=== PATIENT | female | born 1940 | race Caucasian/White ===

== ENCOUNTER → 2017-01-14 | Day surgery (SDC) | payer OTHER, BC ==
[2016-11-18 15:40] VITALS: Ht 165.1 cm; Wt 72.7 kg
[~2017-01-14] VITALS: Ht 165.1 cm; Wt 72.7 kg
[~2017-01-14] MED LIST: 500ML BSS 0.3ML EPI 1:1000PF IRRIG ONE; ACETAMINOPHEN 325 MG TAB PO PRN; AMLO-110 PO; AMVISC PLUS 0.8ML SYRINGE INT OCU ONE; ASPI81TA28 PO; ATROPINE SULFATE 0.1 MG/ML 5ML SYR IV PRN; AcetaZOLAMIDE 250 MG TAB PO SCH; BETAXOLOL HCL 0.25% OP SUSP PER DROP CHARGE OPL SCH; BRIMONIDINE TART 0.2% OP SOLN PER DROP CHARGE ONE; BSS FLUSH ONE; DICL50TA3 PO; ENDOCOAT 0.85ML SYRINGE INT OCU ONE; EpHEDrine SULFATE INJ 50 MG/ML AMP IV PRN; EpINEphrine INJ 1MG/ML AMP 1 MG/ML AMP ONE; LACTATED RINGER'S 1000ML 500 ML IV SCH; LIDOCAINE 4% OP SOLN DROP CHARGE ONE; LIDOCAINE 4% OP SOLN DROP CHARGE OPL SCH; LIDOCAINE HCL 1% MPF 2 ML VIAL ONE; MIDAZOLAM HCL 1 MG/ML 2ML VIAL ONE; MIX: 4ML BSS 1ML EPI 1:1000 PF INSTIL ONE; MOXIFLOXACIN OPH SOLN PER DROP CHARGE ONE; OCUCOAT 1 ML SOLN IO ONE; ONDANSETRON INJ 2 MG/ML 2 ML VIAL IV PRN; POTA99TA PO; POVIDONE-IODINE OP SOLN 30 ML BTL ONE; PRLSR20 PO; PROPARACAINE 0.5% OP SOLN PER DROP CHARGE OPL SCH; TOBRAMYCIN/DEXAMETHASONE OPH OINT PER APPLN CHARGE ONE; VALS160T58 PO
--- NOTE | 2017-01-14 07:47 | History & Physical Bridge - [place] ---
H&P Re-Evaluation Bridge Note: I have examined the patient, reviewed the History & Physical and in the interval since the performance of the History & Physical I have noted the following changes of clinical significance: No changes noted
[2017-01-14] MEDS: PHENYLEPHRINE HCL 2.5% OP SOLN PER DROP CHARGE OPL SCH ×2 (10:30→10:40)
[2017-01-14] MEDS: TROPICAMIDE 1% OP SOLN PER DROP CHARGE OPL SCH ×2 (10:31→10:41)
[2017-01-14] MEDS: CYCLOPENTOLATE HCL 1% OP SOLN PER DROP CHARGE OPL SCH ×2 (10:32→10:42)
[2017-01-14] MEDS: MOXIFLOXACIN OPH SOLN PER DROP CHARGE OPL SCH ×2 (10:33→10:43)
--- NOTE | 2017-01-14 11:27 | Discharge Instructions-SurgCtr ---
Discharge Instructions Date of Service Jan 14, 2017. Visit Reason for Visit: Cataract Left Eye Discharge Discharge Diagnosis / Problem: lens implant left eye Discharge Goals Goal(s): Improve function Activity Recommendations Activity Limitations: resume your previous activity Lifting Limitations: no more than 10 pounds Exercise/Sports Limitations: gradually increase as tolerated May Resume Sexual Activity: when tolerated Shower/Bathe: tomorrow Driving or Machine Use: resume 1 day after discharge Anesthesia . Post Anesthesia Instructions: If you have had General Anesthesia or IV Sedation: * Do not drive today. * Resume driving when surgeon permits. * Do not make important decisions or sign legal documents today. * Call surgeon for: 1. Temperature elevations greater than 101 degrees F. 2. Uncontrollable pain. 3. Excessive bleeding. 4. Persistent nausea and vomiting. 5. Medication intolerance (nausea, vomiting or rash). * For nausea and vomiting use only clear liquids such as: tea, soda, bouillon until nausea subsides, then gradually increase diet as tolerated. * If you have any concerns or questions, call your surgeon's office. If physician is unavailable and it is an emergency, call 911 or go to the nearest emergency room. . Instructions / Follow-Up Instructions / Follow-Up ACTIVITY RECOMMENDATIONS: * Light activities. * Mild irritation and blurred vision are common for the first few days. * You may walk outside, read, watch television. * Redness around the white part of the eye is common. MEDICATIONS: Resume previous medications unless instructed otherwise by your surgeon. * Take white Diamox (Acetazolamide) tablet at 2 pm today. Start all eye drops at 2 pm today: * Eye drops (today and tomorrow): Prednisone - one drop in operative eye every 3 hours while awake Ofloxacin - one drop in operative eye every 3 hours while awake SPECIAL CARE INSTRUCTIONS: * Tape plastic shield over eye to sleep at night. Call your doctor at with any concerns or problems. FOLLOW UP VISIT: Follow-up with Dr Bhakta at [place] office as scheduled. Diet Recommendations Home Diet: no limitations Procedures Procedures Performed: cataract extraction with lens implant Pending Studies Studies pending at discharge: no Medical Emergencies . Who to Call and When: Medical Emergencies: If at any time you feel your situation is an emergency, please call 911 immediately. . Non-Emergent Contact Non-Emergency issues call your: Hookman Call Non-Emergent contact if: your pain is not controlled [phone] . . "Provider Documentation" section prepared by Trever Bhakta. .
--- NOTE | 2017-01-14 11:29 | [facility] Operative Report ---
Operative Report Date of Service Jan 14, 2017. Operative Report 1. PREOPERATIVE DIAGNOSIS: Senile nuclear cataract, left eye. 2. POSTOPERATIVE DIAGNOSIS: Senile nuclear cataract, left eye. 3. PROCEDURE: Phacoemulsification of left cataract with posterior chamber lens implant, type [employer]ch [employer] Lomb, model MX60, power +21.0 diopters. ANESTHESIA: Local standby. SURGEON: Dr. Bhakta. COMPLICATIONS: None. OPERATING TIME: 10 minutes. 4. OPERATION AND FINDINGS: DESCRIPTION OF PROCEDURE: The left pupil was dilated. The anesthetic was administered using a topical technique. The left eye was prepped and draped. A speculum was placed. A clear corneal incision was formed. The chamber was filled with Amvisc Plus and Endocoat. Epinephrine solution was used. A paracentesis was placed. A capsulorrhexis was performed. The nucleus was hydrodissected. The lens was removed with phacoemulsification. Time was 3.14 seconds. The aspiration unit was used to remove the cortex. The capsule was filled with Amvisc Plus. The lens implant was folded and placed into the capsule. The incision was hydrated. The Amvisc was aspirated. The wound was secure. The chamber was deep. The pupil was round. Brimonidine, TobraDex ointment and Vigamox solution were placed. The speculum was removed. The patient was returned to the Recovery Room in stable condition. I attest to the content of the Intraoperative Record and any orders documented therein. Any exceptions are noted below. The scribe's documentation has been prepared in my presence, under my direction and personally reviewed by me in its entirety. I confirm that the note above accurately reflects all work, treatment, procedures, and medical decision making performed by me. I personally scribed for Trever Bhakta M.D. ([email or web address]) on 01/14/17 at 11:29. Electronically submitted by Tiara Aguayo ([email or web address]).
[2017-01-14 11:32] VITALS: TEMP 36.4
--- NOTE | 2017-01-14 11:33 | Anesthesiology Progress Note ---
Anesthesia Post Op Note Date & Time Jan 14, 2017 at 11:33 Vital Signs Pain Intensity: 0 Vital Signs Past 12 Hours Date Time Temp Pulse Resp B/P (MAP) Pulse Ox O2 Delivery O2 Flow Rate FiO2 01/14/17 10:20 36.5 62 16 135/81 (99) 97 Room Air Notes Mental Status: alert / awake / arousable, participated in evaluation Nausea / Vomiting: adequately controlled Pain: adequately controlled Airway Patency, RR, SpO2: stable & adequate BP & HR: stable & adequate Hydration State: stable & adequate Anesthetic Complications: no major complications apparent
[2017-01-14 11:50] VITALS: BP 124/78; PULSE 60; O2SAT 96
== END | disposition home or self-care (01) ==
LOC: X.SURG 09:51
PROVIDERS: ATTEND Specialist
DX: H25.12 Age-related nuclear cataract, left eye (principal); I10 Essential (primary) hypertension; Z79.82 Long term (current) use of aspirin; Z79.899 Other long term (current) drug therapy

== ENCOUNTER → 2017-01-28 | Day surgery (SDC) | payer OTHER, BC ==
[2017-01-26 08:37] VITALS: Ht 165.1 cm; Wt 72.7 kg
[~2017-01-28] VITALS: Ht 165.1 cm; Wt 72.7 kg
[~2017-01-28] MED LIST changes: -BETAXOLOL HCL 0.25% OP SUSP PER DROP CHARGE OPL SCH; +BETAXOLOL HCL 0.25% OP SUSP PER DROP CHARGE OPR SCH; -LIDOCAINE 4% OP SOLN DROP CHARGE OPL SCH; +LIDOCAINE 4% OP SOLN DROP CHARGE OPR SCH; -ONDANSETRON INJ 2 MG/ML 2 ML VIAL IV PRN; -PROPARACAINE 0.5% OP SOLN PER DROP CHARGE OPL SCH; +PROPARACAINE 0.5% OP SOLN PER DROP CHARGE OPR SCH
[2017-01-28] MEDS: PHENYLEPHRINE HCL 2.5% OP SOLN PER DROP CHARGE OPR SCH ×2 (10:08→10:16)
[2017-01-28] MEDS: TROPICAMIDE 1% OP SOLN PER DROP CHARGE OPR SCH ×2 (10:09→10:17)
[2017-01-28] MEDS: CYCLOPENTOLATE HCL 1% OP SOLN PER DROP CHARGE OPR SCH ×2 (10:10→10:18)
[2017-01-28] MEDS: MOXIFLOXACIN OPH SOLN PER DROP CHARGE OPR SCH ×2 (10:11→10:20)
--- NOTE | 2017-01-28 11:03 | Discharge Instructions-SurgCtr ---
Discharge Instructions Date of Service Jan 28, 2017. Visit Reason for Visit: Cataract Right Eye Discharge Discharge Diagnosis / Problem: lens implant right eye Discharge Goals Goal(s): Improve function Activity Recommendations Activity Limitations: resume your previous activity Lifting Limitations: no more than 10 pounds Exercise/Sports Limitations: gradually increase as tolerated May Resume Sexual Activity: when tolerated Shower/Bathe: tomorrow Driving or Machine Use: resume 1 day after discharge Anesthesia . Post Anesthesia Instructions: If you have had General Anesthesia or IV Sedation: * Do not drive today. * Resume driving when surgeon permits. * Do not make important decisions or sign legal documents today. * Call surgeon for: 1. Temperature elevations greater than 101 degrees F. 2. Uncontrollable pain. 3. Excessive bleeding. 4. Persistent nausea and vomiting. 5. Medication intolerance (nausea, vomiting or rash). * For nausea and vomiting use only clear liquids such as: tea, soda, bouillon until nausea subsides, then gradually increase diet as tolerated. * If you have any concerns or questions, call your surgeon's office. If physician is unavailable and it is an emergency, call 911 or go to the nearest emergency room. . Instructions / Follow-Up Instructions / Follow-Up ACTIVITY RECOMMENDATIONS: * Light activities. * Mild irritation and blurred vision are common for the first few days. * You may walk outside, read, watch television. * Redness around the white part of the eye is common. MEDICATIONS: Resume previous medications unless instructed otherwise by your surgeon. * Take white Diamox (Acetazolamide) tablet at 2 pm today. Start all eye drops at 2 pm today: * Eye drops (today and tomorrow): Prednisone - one drop in operative eye every 3 hours while awake Ofloxacin - one drop in operative eye every 3 hours while awake SPECIAL CARE INSTRUCTIONS: * Tape plastic shield over eye to sleep at night. Call your doctor at with any concerns or problems. FOLLOW UP VISIT: Follow-up with Dr Bhakta at [place] office as scheduled. Diet Recommendations Home Diet: no limitations Procedures Procedures Performed: Right Cataract Phacoemulsification With Intraocular Lens Implant Pending Studies Studies pending at discharge: no Medical Emergencies . Who to Call and When: Medical Emergencies: If at any time you feel your situation is an emergency, please call 911 immediately. . Non-Emergent Contact Non-Emergency issues call your: Developer Relations Manager Call Non-Emergent contact if: your pain is not controlled [phone] . . "Provider Documentation" section prepared by Trever Bhakta. .
--- NOTE | 2017-01-28 11:06 | [facility] Operative Report ---
Operative Report Date of Service Jan 28, 2017. Operative Report 1. PREOPERATIVE DIAGNOSIS: Senile nuclear cataract, right eye. 2. POSTOPERATIVE DIAGNOSIS: Senile nuclear cataract, right eye. 3. PROCEDURE: Phacoemulsification of right cataract with posterior chamber lens implant, type B[employer]ch [employer] Lomb, model MX60, power +19.0 diopters. ANESTHESIA: Local standby. SURGEON: Dr. Bhakta. COMPLICATIONS: None. OPERATING TIME: 10 minutes. 4. OPERATION AND FINDINGS: DESCRIPTION OF PROCEDURE: The right pupil was dilated. The anesthetic was administered using a topical technique. The right eye was prepped and draped. A speculum was placed. A clear corneal incision was formed. The chamber was filled with Amvisc Plus and Endocoat. Epinephrine solution was used. A paracentesis was placed. A capsulorrhexis was performed. The nucleus was hydrodissected. The lens was removed with phacoemulsification. Time was 4.19 seconds. The aspiration unit was used to remove the cortex. The capsule was filled with Amvisc Plus. The lens implant was folded and placed into the capsule. The incision was hydrated. The Amvisc was aspirated. The wound was secure. The chamber was deep. The pupil was round. Brimonidine, TobraDex ointment and Vigamox solution were placed. The speculum was removed. The patient was returned to the Recovery Room in stable condition. I attest to the content of the Intraoperative Record and any orders documented therein. Any exceptions are noted below. The scribe's documentation has been prepared in my presence, under my direction and personally reviewed by me in its entirety. I confirm that the note above accurately reflects all work, treatment, procedures, and medical decision making performed by me. I personally scribed for Trever Bhakta M.D. ([email or web address]) on 01/28/17 at 11:06. Electronically submitted by Tiara Aguayo ([email or web address]).
[2017-01-28 11:08] VITALS: TEMP 36.4
--- NOTE | 2017-01-28 11:19 | Anesthesiology Progress Note ---
Anesthesia Post Op Note Date & Time Jan 28, 2017 at 11:19 Vital Signs Pain Intensity: 0 Vital Signs Past 12 Hours Date Time Temp Pulse Resp B/P (MAP) Pulse Ox O2 Delivery O2 Flow Rate FiO2 01/28/17 11:08 36.4 62 16 119/76 (90) 97 Room Air 01/28/17 10:04 36.4 65 16 146/80 (102) 98 Room Air Notes Mental Status: alert / awake / arousable, participated in evaluation Nausea / Vomiting: adequately controlled Pain: adequately controlled Airway Patency, RR, SpO2: stable & adequate BP & HR: stable & adequate Hydration State: stable & adequate Anesthetic Complications: no major complications apparent
[2017-01-28 11:23] VITALS: BP 135/67; PULSE 54; O2SAT 96
== END | disposition home or self-care (01) ==
LOC: X.SURG 08:40
PROVIDERS: ATTEND Specialist
DX: H25.11 Age-related nuclear cataract, right eye (principal); I10 Essential (primary) hypertension; M19.90 Unspecified osteoarthritis, unspecified site; Z79.82 Long term (current) use of aspirin; Z98.42 Cataract extraction status, left eye; Z90.89 Acquired absence of other organs; Z90.49 Acquired absence of other specified parts of digestive tract

== ENCOUNTER → 2017-05-27 | Outpatient (CLI) | payer OTHER, BC ==
[~2017-05-27] MED LIST changes: -500ML BSS 0.3ML EPI 1:1000PF IRRIG ONE; -ACETAMINOPHEN 325 MG TAB PO PRN; -AMVISC PLUS 0.8ML SYRINGE INT OCU ONE; -ATROPINE SULFATE 0.1 MG/ML 5ML SYR IV PRN; -AcetaZOLAMIDE 250 MG TAB PO SCH; -BETAXOLOL HCL 0.25% OP SUSP PER DROP CHARGE OPR SCH; -BRIMONIDINE TART 0.2% OP SOLN PER DROP CHARGE ONE; -BSS FLUSH ONE; -ENDOCOAT 0.85ML SYRINGE INT OCU ONE; -EpHEDrine SULFATE INJ 50 MG/ML AMP IV PRN; -EpINEphrine INJ 1MG/ML AMP 1 MG/ML AMP ONE; -LACTATED RINGER'S 1000ML 500 ML IV SCH; -LIDOCAINE 4% OP SOLN DROP CHARGE ONE; -LIDOCAINE 4% OP SOLN DROP CHARGE OPR SCH; -LIDOCAINE HCL 1% MPF 2 ML VIAL ONE; -MIDAZOLAM HCL 1 MG/ML 2ML VIAL ONE; -MIX: 4ML BSS 1ML EPI 1:1000 PF INSTIL ONE; -MOXIFLOXACIN OPH SOLN PER DROP CHARGE ONE; -OCUCOAT 1 ML SOLN IO ONE; -POVIDONE-IODINE OP SOLN 30 ML BTL ONE; -PROPARACAINE 0.5% OP SOLN PER DROP CHARGE OPR SCH; -TOBRAMYCIN/DEXAMETHASONE OPH OINT PER APPLN CHARGE ONE
[2017-05-27 12:48] LABS: HEMATOCRIT 41.9 % (37-47); HEMOGLOBIN 13.9 g/dL (12.0-16.0); MEAN CELL VOLUME 88.8 fL (80-100); MEAN CORPUSCULAR HEMOGLOBIN 29.4 pg (25-34); MEAN CORPUSCULAR HGB CONC 33.2 g/dl (32-36); MEAN PLATELET VOLUME 9.7 fL (7.4-10.4); PLATELET COUNT 236 K/uL (130-400)
[2017-05-27 13:20] LABS: BLOOD UREA NITROGEN 20 mg/dl (7-18); CALCIUM 8.7 mg/dl (8.5-10.1); CARBON DIOXIDE 28 mmol/L (21-32); CREATININE 0.76 mg/dl (0.60-1.20); GLUCOSE 88 mg/dl (70-99); POTASSIUM 3.9 mmol/L (3.5-5.1); SODIUM 140 mmol/L (136-145)
== END | disposition home or self-care (01) ==
LOC: C.LABPBG 07:44
PROVIDERS: ATTEND Family Medicine
DX: I10 Essential (primary) hypertension (principal); M85.80 Other specified disorders of bone density and structure, unspecified site; L65.9 Nonscarring hair loss, unspecified

== ENCOUNTER 2023-01-16 13:49 | Inpatient (IN) ==
--- NOTE | 2023-01-16 14:05 | Emergency Department Note ---
Impression & Plan Septic shock, Atrial fibrillation with RVR, NSTEMI (non-ST elevated myocardial infarction), Pancolitis ED Provider Note NAME: BRANDEN BRADFORD AGE: 82 SEX: F : 1940 ARRIVES VIA: Ambulance INFORMANT: Patient, ED PROVIDER(S): Trever No DO CHIEF COMPLAINT: Weakness HPI: The patient is an 82-year-old female who presented to the emergency department for generalized weakness. The patient is a history of ulcerative colitis. She was recently admitted to our facility for similar complaints. The patient states that she has been not feeling well and very weak. She has not been able to get out of bed or walk. The patient was found to be in tachycardia which was felt to be rapid atrial fibrillation by the paramedics. She has no history of this in the past. She denies having any chest pain. She does complain of swelling in her legs as well as rectal bleeding. ROS: See above HPI for pertinent positives & negatives. A total of 10 systems reviewed and were otherwise negative. PAST MEDICAL HISTORY: See Below PAST SURGICAL HISTORY: See Below FAMILY HISTORY: See Below SOCIAL HISTORY: See Below HOME MEDICATIONS: See Below ALLERGIES: See Below VITALS: See Below PHYSICAL EXAMINATION: GENERAL: The patient is awake and alert. She is very anxious. EYES: The conjunctivae are clear. The pupils are round and reactive. EARS, NOSE, MOUTH AND THROAT: The nose is without any evidence of any deformity. NECK: The neck is nontender and supple. RESPIRATORY: Normal respiratory effort is noted there is no evidence of wheezing rhonchi or rales CARDIOVASCULAR: Tachycardic and regular heart sounds were noted to auscultation. There is no definite murmur. GASTROINTESTINAL: The abdomen is soft. Abdomen is nontender. MUSCULOSKELETAL/EXTREMITIES: There is no evidence of gross deformity full range of motion is noted in the hips and shoulders. SKIN:Skin was cool and dry. Pedal edema was noted bilaterally. NEUROLOGIC: Patient is awake alert and oriented x3 MEDICAL DECISION MAKING: The patient is an 82-year-old female who presented to the emergency department b y ambulance for an evaluation of generalized weakness. The patient was found to be in rapid atrial fibrillation. This would be a new diagnosis for the patient. She appeared to be very ill. She was hypotensive at times. She was treated with multiple IV fluid boluses. She did have some abdominal tenderness on physical exam. She was recently diagnosed with colitis. She was found to have an acute kidney injury with an elevation in her creatinine. She was treated with IV antibiotics for presumed sepsis. The patient was reevaluated multiple times. I discussed patient's laboratory and radiographic studies with her as well as her family. They are aware that the patient is very sick at this time. I discussed patient's case with the on-call [facility] [place] [facility] group and the patient was also evaluated by the ICU in the emergency department. A central line was placed in the emergency room by the ICU. Triage Nursing notes reviewed. Prior medical records reviewed Vital Signs: reviewed and remarkable for Hypotension and tachycardia. Differential diagnosis: Infection, dehydration, metabolic abnormality, hypo/hyperglycemia, electrolyte disturbance, anemia, hypoxia, cardiac sources, intracerebral event, toxicologic, neurologic, as well as other pathologies. ER treatment provided: See below Diagnostics interpreted by me: ECG: EKG was obtained in the emergency department. My interpretation is atrial fibrillation with RVR at [address] segment depressions were noted. There were no PVCs noted. This was compared to a tracing from December 14, 2022. The atrial fibrillation is new compared to the earlier tracing. Cardiac Monitoring: An order was placed for continuous cardiac monitoring. The monitor shows a rate of 130 bpm with atrial fibrillation and RVR. Laboratory studies: As stated above and show below. Imaging studies: See below. Radiographic imaging was reviewed by myself Consultation(s): I discussed this case with Dr. Meehan as well as Dr. Miller who is on for the [facility] hospice group. I discussed this case with Bertin who is on for the ICU. ED COURSE: Procedures: none Critical Care: I have personally spent greater than 55 minutes of critical care time in the direct management of this patient. This includes bedside care, interpretation of diagnostic studies, and testing, discussion with consultants, patient, and family members, and other required patient management activities. This 55 minutes is in excess of all separately billable procedures. Past Med/Surg History Medical History Afib Arthritis Colitis Diarrhea GERD (gastroesophageal reflux disease) Hypertension Hypokalemia Hyponatremia Osteopenia Surgical History H/O cataract extraction (2016) History of breast lump/mass excision (1987) Fibroid, 1987 S/P appendectomy S/P cholecystectomy (2009) S/P tonsillectomy Family History Mother Cardiac disorder Stroke Hypertension Myocardial infarction 80's Sister Cardiac disorder Stroke Hypertension Grandfather (Maternal) Diabetes Father No known health problems Denies family history of Ovarian cancer Prostate cancer Breast cancer Colorectal cancer Social History Smoking Status: Never smoker Second Hand Exposure: No; Do You Dip or Chew Tobacco: No; Hx Alcohol Use: No Hx Substance Use: No Preferred Language: Hungarian Communication Ability: Effective Visual Impairment: No Limitations Hearing Ability: Normal Train Conductor Required: No Beliefs That Will Affect Care: None marital status: Current Living Situation: Spouse 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 Feels Safe at Home: Yes Diet: regular Diet Comment: regular caffeine: Yes during the past year weight has: remained stable Dental Care, Regularly: Yes Physical Activity Frequency: Daily Physical Activity Frequency Comment: walking/ housework Seatbelt Use: always Sunscreen Use: Yes Assistive Devices: Cane and Wheelchair Allergies Allergies Allergy/AdvReac Type Severity Reaction Status Date / Time Penicillins Allergy Unknown UNKNOWN Verified 12/25/22 13:17 Home Meds Home Medications Medication Instructions Recorded Confirmed vitamins A,C,[id number] 4,296 See Rx Instructions .Route .COMPLEX 10/18/21 12/25/22 mcg-226 mg-90 mg capsule (PreserVision AREDS) calcium carbonate 600 mg calcium See Rx Instructions .Route .COMPLEX 12/09/22 12/25/22 (1,500 mg) tablet (Calcium) cholecalciferol (vitamin D3) 25 See Rx Instructions .Route .COMPLEX 12/09/22 12/25/22 mcg (1,000 unit) tablet (Vitamin D3) prednisone 5 mg tablet 5 mg .Route .COMPLEX 01/01/23 01/16/23 amlodipine 5 mg tablet See Rx Instructions .Route .COMPLEX 01/16/23 losartan 50 mg-hydrochlorothiazide See Rx Instructions .Route .COMPLEX 01/16/23 12.5 mg tablet mesalamine 1.2 gram tablet,delayed 4.8 g PO DAILY 01/16/23 01/16/23 release (Lialda) potassium chloride 10 mEq See Rx Instructions .Route .COMPLEX 01/16/23 capsule,extended release triamcinolone acetonide 0.1 % 1 applic topical BID PRN Other 01/16/23 01/16/23 topical cream Results & Data (ED) Vital Signs Vital Signs - 24 hr 01/16/23 13:56 01/16/23 13:56 01/16/23 13:56 Temperature 36.7 C 36.7 C Temperature Source Oral Oral Pulse Rate 165 H Pulse Rate [Apical] 148 H Pulse Rate from SpO2 Sensor Pulse Rhythm [Apical] Irregular Respiratory Rate 24 22 Blood Pressure 119/88 Blood Pressure [Right Arm] 119/88 Blood Pressure Mean 98 Blood Pressure Mean [Right Arm] 98 Pulse Oximetry 99 99 99 Oxygen Delivery Method Room Air Room Air Room Air Sepsis Recent Fever Within 48 Hours No Sepsis New/Unexplained Change in Mental Status N/A Sepsis Action Taken by Nursing No Action Required 01/16/23 14:10 01/16/23 14:12 01/16/23 16:07 Temperature Temperature Source Pulse Rate 153 H 165 H 163 H Pulse Rate [Apical] Pulse Rate from SpO2 Sensor Pulse Rhythm [Apical] Respiratory Rate 24 26 H Blood Pressure 81/63 L Blood Pressure [Right Arm] Blood Pressure Mean 69 Blood Pressure Mean [Right Arm] Pulse Oximetry 99 Oxygen Delivery Method Room Air Sepsis Recent Fever Within 48 Hours Sepsis New/Unexplained Change in Mental Status Sepsis Action Taken by Nursing 01/16/23 18:04 Temperature Temperature Source Pulse Rate 146 H Pulse Rate [Apical] Pulse Rate from SpO2 Sensor 99 H Pulse Rhythm [Apical] Respiratory Rate 18 Blood Pressure 116/89 Blood Pressure [Right Arm] Blood Pressure Mean 98 Blood Pressure Mean [Right Arm] Pulse Oximetry 98 Oxygen Delivery Method Sepsis Recent Fever Within 48 Hours Sepsis New/Unexplained Change in Mental Status Sepsis Action Taken by [facility] Medications Current Medication List: was personally reviewed by me Laboratory Data Attestation: I reviewed the patient's lab results. 01/17/23 04:10 01/17/23 08:59 Lab Results 01/16/23 01/16/23 01/16/23 Range/Units 14:36 15:12 15:12 WBC 34.29 H* (4.8-10.8) K/ul RBC 5.55 H (4.20-5.40) M/uL Hgb 16.6 H (12.0-16.0) g/dl Hct 45.8 (37.0-47.0) % MCV 82.5 (80.0-100.0) fL MCH 29.9 (25.0-34.0) pg MCHC 36.2 H (32.0-36.0) g/dL RDW Std Deviation 48.3 H (36.4-46.3) fL RDW Coeff of Anant 16.3 H (11.5-14.5) % Plt Count 173 (130-400) K/uL MPV 10.9 (9.4-12.4) fL Immature Gran % (Auto) 2.7 % Neut % (Auto) 84.4 % Lymph % (Auto) 8.3 % Sen[place] % (Auto) 4.2 % Eos % (Auto) 0.1 % Baso % (Auto) 0.3 % Neut # (Auto) 28.93 H (1.40-6.50) K/uL Lymph # (Auto) 2.84 (1.20-3.40) K/uL Sen[place] # (Auto) 1.43 H (0.11-0.59) K/uL Eos # (Auto) 0.05 (0.00-0.50) K/uL Baso # (Auto) 0.10 (0.00-0.20) K/uL Immature Gran # (Auto) 0.94 H (0.01-0.20) K/uL Polychromasia 1+ Echinocytes 2+ PT (9.0-12.0) Seconds INR (0.9-1.1) APTT (21.0-31.0) Seconds PTT Ratio ABG pH ABG pCO2 ABG pO2 ABG HCO3 ABG O2 Saturation ABG Base Excess Gaetano Test Barometric Pressure Oxygen Given Sodium 130 L (136-145) mmol/L Potassium 3.4 L (3.5-5.1) mmol/L Chloride 96 L (98-107) mmol/L Carbon Dioxide 15 L (21-32) mmol/L Anion Gap 19 H (3-11) BUN 44 H (6-23) mg/dl Creatinine 2.50 H (0.6-1.2) mg/dl Est Cr Clr Drug Dosing 16.8 ml/min Est GFR ( Amer) 20.4 ml/min Est GFR (Non-Af Amer) 17.6 ml/min BUN/Creatinine Ratio 17.6 (10-20) Glucose 188 H (70-99(Fasting)) mg/dl Osmolality (280-300) mOsm/kg Lactate 4.0 H* (0.4-2.0) mmol/L Calcium 8.7 (8.6-10.3) mg/dl Magnesium 2.5 H (1.7-2.4) mg/dl Total Bilirubin 1.3 H (0.2-1.0) mg/dl Direct Bilirubin 0.1 (0-0.2) mg/dl AST 20 (13-39) U/L ALT 16 (7-52) U/L Alkaline Phosphatase 65 (34-104) U/L Troponin I High Sens 109.1 H* (0-14) pg/ml Total Protein 4.8 L (6.0-8.3) gm/dl Albumin 2.9 L (3.4-5.0) gm/dl Procalcitonin (0-0.5) ng/ml TSH 5.540 H (0.300-4.500) uIu/ml Free T4 1.85 H (0.61-1.60) ng/dl Random Cortisol mcg/dl Blood Type Antibody Screen Antibody Identification Antibody ID Comment 01/16/23 01/16/23 01/16/23 Range/Units 15:12 15:12 15:12 WBC (4.8-10.8) K/ul RBC (4.20-5.40) M/uL Hgb (12.0-16.0) g/dl Hct (37.0-47.0) % MCV (80.0-100.0) fL MCH (25.0-34.0) pg MCHC (32.0-36.0) g/dL RDW Std Deviation (36.4-46.3) fL RDW Coeff of Anant (11.5-14.5) % Plt Count (130-400) K/uL MPV (9.4-12.4) fL Immature Gran % (Auto) % Neut % (Auto) % Lymph % (Auto) % Sen[place] % (Auto) % Eos % (Auto) % Baso % (Auto) % Neut # (Auto) (1.40-6.50) K/uL Lymph # (Auto) (1.20-3.40) K/uL Sen[place] # (Auto) (0.11-0.59) K/uL Eos # (Auto) (0.00-0.50) K/uL Baso # (Auto) (0.00-0.20) K/uL Immature Gran # (Auto) (0.01-0.20) K/uL Polychromasia Echinocytes PT 18.2 H (9.0-12.0) Seconds INR 1.7 H (0.9-1.1) APTT 31.0 (21.0-31.0) Seconds PTT Ratio 1.1 ABG pH ABG pCO2 ABG pO2 ABG HCO3 ABG O2 Saturation ABG Base Excess Gaetano Test Barometric Pressure Oxygen Given Sodium (136-145) mmol/L Potassium (3.5-5.1) mmol/L Chloride (98-107) mmol/L Carbon Dioxide (21-32) mmol/L Anion Gap (3-11) BUN (6-23) mg/dl Creatinine (0.6-1.2) mg/dl Est Cr Clr Drug Dosing ml/min Est GFR ( Amer) ml/min Est GFR (Non-Af Amer) ml/min BUN/Creatinine Ratio (10-20) Glucose (70-99(Fasting)) mg/dl Osmolality (280-300) mOsm/kg Lactate (0.4-2.0) mmol/L Calcium (8.6-10.3) mg/dl Magnesium (1.7-2.4) mg/dl Total Bilirubin (0.2-1.0) mg/dl Direct Bilirubin (0-0.2) mg/dl AST (13-39) U/L ALT (7-52) U/L Alkaline Phosphatase (34-104) U/L Troponin I High Sens (0-14) pg/ml Total Protein (6.0-8.3) gm/dl Albumin (3.4-5.0) gm/dl Procalcitonin 2.60 H (0-0.5) ng/ml TSH (0.300-4.500) uIu/ml Free T4 (0.61-1.60) ng/dl Random Cortisol mcg/dl Blood Type Cancelled Antibody Screen Cancelled Antibody Identification Antibody ID Comment 01/16/23 01/16/23 01/16/23 Range/Units 15:14 16:09 16:09 WBC (4.8-10.8) K/ul RBC (4.20-5.40) M/uL Hgb (12.0-16.0) g/dl Hct (37.0-47.0) % MCV (80.0-100.0) fL MCH (25.0-34.0) pg MCHC (32.0-36.0) g/dL RDW Std Deviation (36.4-46.3) fL RDW Coeff of Anant (11.5-14.5) % Plt Count (130-400) K/uL MPV (9.4-12.4) fL Immature Gran % (Auto) % Neut % (Auto) % Lymph % (Auto) % [place] % (Auto) % Eos % (Auto) % Baso % (Auto) % Neut # (Auto) (1.40-6.50) K/uL Lymph # (Auto) (1.20-3.40) K/uL Sen[place] # (Auto) (0.11-0.59) K/uL Eos # (Auto) (0.00-0.50) K/uL Baso # (Auto) (0.00-0.20) K/uL Immature Gran # (Auto) (0.01-0.20) K/uL Polychromasia Echinocytes PT (9.0-12.0) Seconds INR (0.9-1.1) APTT (21.0-31.0) Seconds PTT Ratio ABG pH Cancelled 7.43 ABG pCO2 Cancelled 20 L ABG pO2 Cancelled 96 H ABG HCO3 Cancelled 13 L ABG O2 Saturation Cancelled 98.9 H ABG Base Excess Cancelled -8.7 Gaetano Test Cancelled Pos Barometric Pressure Cancelled Oxygen Given Cancelled ROOM AIR Sodium (136-145) mmol/L Potassium (3.5-5.1) mmol/L Chloride (98-107) mmol/L Carbon Dioxide (21-32) mmol/L Anion Gap (3-11) BUN (6-23) mg/dl Creatinine (0.6-1.2) mg/dl Est Cr Clr Drug Dosing ml/min Est GFR ( Amer) ml/min Est GFR (Non-Af Amer) ml/min BUN/Creatinine Ratio (10-20) Glucose (70-99(Fasting)) mg/dl Osmolality 281 (280-300) mOsm/kg Lactate (0.4-2.0) mmol/L Calcium (8.6-10.3) mg/dl Magnesium (1.7-2.4) mg/dl Total Bilirubin (0.2-1.0) mg/dl Direct Bilirubin (0-0.2) mg/dl AST (13-39) U/L ALT (7-52) U/L Alkaline Phosphatase (34-104) U/L Troponin I High Sens (0-14) pg/ml Total Protein (6.0-8.3) gm/dl Albumin (3.4-5.0) gm/dl Procalcitonin (0-0.5) ng/ml TSH (0.300-4.500) uIu/ml Free T4 (0.61-1.60) ng/dl Random Cortisol mcg/dl Blood Type Antibody Screen Antibody Identification Antibody ID Comment 01/16/23 01/16/23 01/16/23 Range/Units 16:09 16:10 16:10 WBC (4.8-10.8) K/ul RBC (4.20-5.40) M/uL Hgb (12.0-16.0) g/dl Hct (37.0-47.0) % MCV (80.0-100.0) fL MCH (25.0-34.0) pg MCHC (32.0-36.0) g/dL RDW Std Deviation (36.4-46.3) fL RDW Coeff of Anant (11.5-14.5) % Plt Count (130-400) K/uL MPV (9.4-12.4) fL Immature Gran % (Auto) % Neut % (Auto) % Lymph % (Auto) % [place] % (Auto) % Eos % (Auto) % Baso % (Auto) % Neut # (Auto) (1.40-6.50) K/uL Lymph # (Auto) (1.20-3.40) K/uL [place] # (Auto) (0.11-0.59) K/uL Eos # (Auto) (0.00-0.50) K/uL Baso # (Auto) (0.00-0.20) K/uL Immature Gran # (Auto) (0.01-0.20) K/uL Polychromasia Echinocytes PT (9.0-12.0) Seconds INR (0.9-1.1) APTT (21.0-31.0) Seconds PTT Ratio ABG pH ABG pCO2 ABG pO2 ABG HCO3 ABG O2 Saturation ABG Base Excess Gaetano Test Barometric Pressure Oxygen Given Sodium (136-145) mmol/L Potassium (3.5-5.1) mmol/L Chloride (98-107) mmol/L Carbon Dioxide (21-32) mmol/L Anion Gap (3-11) BUN (6-23) mg/dl Creatinine (0.6-1.2) mg/dl Est Cr Clr Drug Dosing ml/min Est GFR ( Amer) ml/min Est GFR (Non-Af Amer) ml/min BUN/Creatinine Ratio (10-20) Glucose (70-99(Fasting)) mg/dl Osmolality (280-300) mOsm/kg Lactate (0.4-2.0) mmol/L Calcium (8.6-10.3) mg/dl Magnesium (1.7-2.4) mg/dl Total Bilirubin (0.2-1.0) mg/dl Direct Bilirubin (0-0.2) mg/dl AST (13-39) U/L ALT (7-52) U/L Alkaline Phosphatase (34-104) U/L Troponin I High Sens 129.9 H* (0-14) pg/ml Total Protein (6.0-8.3) gm/dl Albumin (3.4-5.0) gm/dl Procalcitonin (0-0.5) ng/ml TSH (0.300-4.500) uIu/ml Free T4 (0.61-1.60) ng/dl Random Cortisol > 60.00 mcg/dl Blood Type A Negative Antibody Screen NEGATIVE Antibody Identification Cancelled Antibody ID Comment Cancelled Administered Medications Acetaminophen (Acetaminophen 1000 Mg/100 Ml Iv) 1,000 mg IV Q8H PRN PRN Reason: Pain or Fever Stop: 01/19/23 22:56 Last Admin: 01/17/23 04:29 Dose: 1,000 mg Documented By: ISAIAH Fidaxomicin (Fidaxomicin 200 Mg Tab) 200 mg PO BID SUSAN Stop: 01/27/23 05:24 Last Admin: 01/17/23 05:40 Dose: 200 mg Documented By: ISAIAH Pantoprazole Sodium 40 mg/ (Syringe) 10 mls @ 5 mls/min IV BID SUSAN Stop: 02/15/23 22:56 Last Admin: 01/16/23 23:30 Dose: 5 mls/min Documented By: ISAIAH Metronidazole (Flagyl) 500 mg in 100 mls @ 100 mls/hr IV Q8H SUSAN; Protocol Stop: 01/27/23 00:59 Last Infusion: 01/17/23 03:27 Dose: 0 mls/hr Documented By: Admin: 01/17/23 02:17 Dose: 100 mls/hr Documented By: ISAIAH Hydrocortisone Sodium (Succinate 100 mg/ Syringe) 2 mls @ 4 mls/min IV Q8H SUSAN Stop: 02/16/23 00:59 Last Admin: 01/17/23 01:42 Dose: 4 mls/min Documented By: ISAIAH Cefepime HCl 1,000 mg/ Syringe 10 mls @ 5 mls/min IV Q12H SUSAN Stop: 01/27/23 03:59 Last Admin: 01/17/23 03:35 Dose: 5 mls/min Documented By: ISAIAH Norepinephrine Bitartrate (Levophed/D5w) 4 mg in 250 mls @ 121.17 mls/hr IV .Q2H4M SUSAN; Protocol Stop: 02/16/23 03:14 Last Admin: 01/17/23 08:01 Dose: Not Given Documented By: Titration: 01/17/23 07:58 Dose: 0.56 mcg/kg/min, 121.2 mls/hr Documented By: Admin: 01/17/23 07:45 Dose: 0.46 mcg/kg/min, 99.5 mls/hr Documented By: EDYTA Co-signed By: OZZY Titration: 01/17/23 07:45 Dose: 0.4 mcg/kg/min, 86.6 mls/hr Documented By: EDYTA Co-signed By: OZZY Titration: 01/17/23 06:44 Dose: 0.4 mcg/kg/min, 86.6 mls/hr Documented By: Titration: 01/17/23 06:30 Dose: 0.35 mcg/kg/min, 75.7 mls/hr Documented By: Titration: 01/17/23 06:15 Dose: 0.3 mcg/kg/min, 64.9 mls/hr Documented By: Titration: 01/17/23 06:05 Dose: 0.25 mcg/kg/min, 54.1 mls/hr Documented By: Titration: 01/17/23 05:55 Dose: 0.2 mcg/kg/min, 43.3 mls/hr Documented By: Titration: 01/17/23 05:11 Dose: 0.25 mcg/kg/min, 54.1 mls/hr Documented By: Titration: 01/17/23 04:58 Dose: 0.2 mcg/kg/min, 43.3 mls/hr Documented By: Titration: 01/17/23 04:40 Dose: 0.15 mcg/kg/min, 32.5 mls/hr Documented By: Titration: 01/17/23 04:30 Dose: 0.1 mcg/kg/min, 21.6 mls/hr Documented By: Admin: 01/17/23 03:16 Dose: 0.05 mcg/kg/min, 10.8 mls/hr Documented By: CP Co-signed By: CF Vasopressin 20 units/ Sodium (Chloride) 101 mls @ 12.12 mls/hr IV .Q8H20M SUSAN Stop: 02/16/23 05:14 Last Admin: 01/17/23 05:27 Dose: 0.04 unit/min, 12.1 mls/hr Documented By: CP Co-signed By: JT Sodium Bicarbonate 150 meq/ (Dextrose) 1,150 mls @ 150 mls/hr IV .Q7H40M SUSAN Stop: 02/16/23 05:29 Last Admin: 01/17/23 06:13 Dose: 150 mls/hr Documented By: CP Fentanyl Citrate (Fentanyl Citrate) 2,500 mcg in 250 mls @ 2.5 mls/hr IV .Q96H SUSAN; Protocol Stop: 01/31/23 06:59 Last Admin: 01/17/23 07:23 Dose: 25 mcg/hr, 2.5 mls/hr Documented By: EDYTA Co-signed By: THIERRY Amiodarone HCl/Dextrose (Nexterone / D5w) 360 mg in 200 mls @ 33.333 mls/hr IV ONE ONE; Protocol Stop: 01/17/23 12:56 Last Admin: 01/17/23 07:23 Dose: 1 mg/min, 33.3 mls/hr Documented By: EDYTA Co-signed By: THIERRY Esmolol HCl (Brevibloc) 2,500 mg in 250 mls @ 0 mls/hr IV .Q0M SUSAN; Protocol Stop: 02/16/23 07:14 Last Titration: 01/17/23 08:01 Dose: 0 mcg/kg/min, 0 mls/hr Documented By: Admin: 01/17/23 07:42 Dose: 50 mcg/kg/min, 17.3 mls/hr Documented By: EDYTA Co-signed By: OZZY Miscellaneous (Mesalamine [Lialda] - Order Awaiting Action) 1 each N/A QS SUSAN Stop: 02/16/23 07:59 Last Admin: 01/17/23 08:27 Dose: Not Given Documented By: EDYTA Ondansetron HCl (Ondansetron Inj 2 Mg/Ml 2 Ml Vial) 4 mg IV Q6H PRN PRN Reason: Nausea Stop: 02/15/23 22:56 Last Admin: 01/17/23 00:38 Dose: 4 mg Documented By: ISAIAH Discontinued Medications Stephenson Syrup (Stephenson Syrup 5 Ml Udp) 5 ml PO Q6 SUSAN Stop: 01/27/23 03:59 Last Admin: 01/17/23 03:54 Dose: 5 ml Documented By: ISAIAH Hydrocortisone Sodium Succinate (Hydrocortisone Sod Succinate 100 Mg/2 Ml Vial) 100 mg IV NOW STA Stop: 01/16/23 17:39 Last Admin: 01/16/23 18:55 Dose: 100 mg Documented By: BRANDY Sodium Chloride (Nss) 1,000 mls @ 999 mls/hr IV .Q1H1M ONE Stop: 01/16/23 16:36 Last Infusion: 01/16/23 18:22 Dose: 0 mls/hr Documented By: Admin: 01/16/23 16:07 Dose: 999 mls/hr Documented By: MES Sodium Chloride (Nss) 1,000 mls @ 999 mls/hr IV .Q1H1M ONE Stop: 01/16/23 16:47 Last Infusion: 01/16/23 18:22 Dose: 0 mls/hr Documented By: Admin: 01/16/23 16:07 Dose: 999 mls/hr Documented By: MES Cefepime HCl (Maxipime) 2,000 mg in 20 mls @ 5 mls/min IV NOW STA; Protocol Stop: 01/16/23 15:50 Last Admin: 01/16/23 16:12 Dose: 5 mls/min Documented By: MES Sodium Chloride (Nss) 1,000 mls @ 999 mls/hr IV .Q1H1M ONE Stop: 01/16/23 18:02 Last Infusion: 01/16/23 20:51 Dose: 0 mls/hr Documented By: Admin: 01/16/23 18:52 Dose: 999 mls/hr Documented By: NRB Metronidazole (Flagyl) 500 mg in 100 mls @ 100 mls/hr IV NOW STA; Protocol Stop: 01/16/23 18:37 Last Infusion: 01/16/23 20:51 Dose: 0 mls/hr Documented By: Admin: 01/16/23 18:58 Dose: 100 mls/hr Documented By: NRShoaib Phytonadione 10 mg/ Dextrose 51 mls @ 102 mls/hr IV ONE ONE Stop: 01/16/23 18:07 Last Infusion: 01/16/23 18:52 Dose: 0 mls/hr Documented By: Admin: 01/16/23 18:10 Dose: 102 mls/hr Documented By: NRShoaib Albumin Human (Albumin 25%) 25 gm in 100 mls @ 50 mls/hr IV ONE ONE Stop: 01/16/23 19:48 Last Admin: 01/16/23 23:14 Dose: Not Given Documented By: CP Potassium Chloride (K Louis / Wtr) 10 meq in 100 mls @ 100 mls/hr IV ONE ONE Stop: 01/16/23 18:48 Last Admin: 01/16/23 23:14 Dose: Not Given Documented By: CP Parenteral Electrolytes (Plasma-Lyte A Ph 7.4) 1,000 mls @ 125 mls/hr IV .Q8H SUSAN Stop: 02/15/23 22:14 Last Infusion: 01/17/23 05:57 Dose: 0 mls/hr Documented By: Admin: 01/17/23 03:57 Dose: 125 mls/hr Documented By: Infusion: 01/17/23 03:57 Dose: 125 mls/hr Documented By: Admin: 01/16/23 23:14 Dose: 125 mls/hr Documented By: CP Potassium Chloride (K Louis / Wtr) 10 meq in 100 mls @ 100 mls/hr IV Q1H SUSAN Stop: 01/17/23 00:59 Last Infusion: 01/17/23 01:40 Dose: 0 mls/hr Documented By: Admin: 01/17/23 00:40 Dose: 100 mls/hr Documented By: Infusion: 01/17/23 00:40 Dose: 100 mls/hr Documented By: Admin: 01/16/23 23:40 Dose: 100 mls/hr Documented By: ISAIAH Calcium Gluconate 1,000 mg/ (Sodium Chloride) 60 mls @ 240 mls/hr IV Q15M SUSAN Stop: 01/16/23 23:44 Last Infusion: 01/17/23 00:16 Dose: 0 mls/hr Documented By: Admin: 01/17/23 00:01 Dose: 240 mls/hr Documented By: Infusion: 01/17/23 00:01 Dose: 240 mls/hr Documented By: Admin: 01/16/23 23:46 Dose: 240 mls/hr Documented By: ISAIAH Parenteral Electrolytes (Plasma-Lyte A Ph 7.4) 500 mls @ 999 mls/hr IV .Q31M ONE Stop: 01/17/23 00:20 Last Infusion: 01/17/23 00:21 Dose: 0 mls/hr Documented By: Admin: 01/17/23 00:02 Dose: 999 mls/hr Documented By: ISAIAH Amiodarone HCl/Dextrose (Nexterone / D5w) 150 mg in 100 mls @ 600 mls/hr IV NOW STA Stop: 01/17/23 07:06 Last Infusion: 01/17/23 08:49 Dose: 0 mls/hr Documented By: EDYTA Co-signed By: THIERRY Admin: 01/17/23 07:22 Dose: 600 mls/hr Documented By: EDYTA Co-signed By: DMB Insulin Aspart (Insulin Aspart Per Unit Charge) 0 units SC ACHS [facility] Stop: 02/15/23 22:56 Last Admin: 01/17/23 08:36 Dose: 3 units Documented By: EDYTA Co-signed By: OZZY Admin: 01/16/23 23:24 Dose: Not Given Documented By: ISAIAH Metoprolol Tartrate (Metoprolol Tartrate 1 Mg/Ml Vial) 5 mg IV NOW STA Stop: 01/17/23 00:15 Last Admin: 01/17/23 00:36 Dose: 5 mg Documented By: ISAIAH Metoprolol Tartrate (Metoprolol Tartrate 1 Mg/Ml Vial) 5 mg IV Q8 [facility] Stop: 02/16/23 05:59 Last Admin: 01/17/23 05:58 Dose: Not Given Documented By: ISAIAH Midazolam HCl (Midazolam Hcl 1 Mg/Ml 2ml Vial) 2 mg IV NOW STA Stop: 01/17/23 06:54 Last Admin: 01/17/23 07:23 Dose: 2 mg Documented By: EDYTA Miscellaneous (Rapid Sequence Induction Bag) Confirm Administered Dose 1 each N/A .STK-MED ONE Stop: 01/17/23 06:17 Last Admin: 01/17/23 06:45 Dose: 1 each Documented By: ISAIAH Norepinephrine Bitartrate (Norepinephrine/D5w 4 Mg/250 Ml) Confirm Administered Dose 4 mg IV .STK-MED ONE Stop: 01/17/23 03:06 Last Admin: 01/17/23 03:27 Dose: Not Given Documented By: ISAIAH Ondansetron HCl (Ondansetron Inj 2 Mg/Ml 2 Ml Vial) 4 mg IV NOW STA Stop: 01/16/23 14:15 Last Admin: 01/16/23 14:18 Dose: 4 mg Documented By: MIGEL Sodium Bicarbonate (Sodium Bicarb 8.4% Inj 50 Meq/50 Ml Syr) Confirm Administered Dose 50 meq IV .STK-MED ONE Stop: 01/17/23 04:45 Last Admin: 01/17/23 04:47 Dose: 50 meq Documented By: ISAIAH Sodium Bicarbonate (Sodium Bicarb 8.4% Inj 50 Meq/50 Ml Syr) 50 meq IV NOW STA Stop: 01/17/23 04:47 Last Admin: 01/17/23 04:52 Dose: Not Given Documented By: ISAIAH Sodium Bicarbonate (Sodium Bicarb 8.4% Inj 50 Meq/50 Ml Syr) 50 meq IV NOW STA Stop: 01/17/23 05:27 Last Admin: 01/17/23 05:58 Dose: 50 meq Documented By: CP Sodium Bicarbonate (Sodium Bicarb 8.4% Inj 50 Meq/50 Ml Syr) 50 meq IV NOW STA Stop: 01/17/23 06:06 Last Admin: 01/17/23 06:45 Dose: 50 meq Documented By: ISAIAH Vancomycin HCl (Vancomycin Hcl 125 Mg/2.5ml Soln) 125 mg PO Q6 SUSAN Stop: 01/27/23 03:59 Last Admin: 01/17/23 03:54 Dose: 125 mg Documented By: ISAIAH Imaging Data Attestation: I personally reviewed and interpreted this imaging study as follows: Radiologist's Impression: Chest X-Ray 01/16/23 14:02 SINGLE VIEW CHEST CLINICAL HISTORY: Sepsis. FINDINGS: An AP, portable, upright chest radiograph is compared to study dated 12/09/2022. The heart is mildly enlarged noting atherosclerotic calcification of the thoracic aorta. The pulmonary vasculature is noncongested. Nonspecific interstitial thickening is similar to previous. There is mild bibasilar scarring/atelectasis. The lungs and pleural spaces are otherwise clear. No pneumothorax is seen. The skeletal structures are osteopenic. The bony thorax is grossly intact. Cholecystectomy clips are noted in the right upper quadrant. IMPRESSION: No active disease in the chest. ACT 112: Negative or not required by law. Electronically signed by: Crispin Carmen M.D. 01/16/2023 2:14 PM Abdomen/Pelvis CT 01/16/23 15:47 CT SCAN OF THE ABDOMEN AND PELVIS WITHOUT IV CONTRAST CLINICAL HISTORY: Generalized abdominal pain. COMPARISON STUDY: Abdominal CT dated 12/14/2022. TECHNIQUE: CT scan of the abdomen and pelvis is performed from the lung bases to the proximal femora. Images are reviewed in the axial, sagittal, and coronal planes. IV contrast was not administered for this examination. Note that the examination was performed in significantly suboptimal fashion without oral and IV contrast. A dose lowering technique was utilized adhering to the principles of ALARA. CT DOSE: 499.98 mGy.cm FINDINGS: Lung bases: The heart is mildly enlarged and without pericardial effusion. The coronary arteries are densely calcified. The lung bases are clear noting bibasilar scarring/atelectasis. There is a small hiatal hernia. Liver: The unenhanced liver is normal in size, contour, and attenuation. There is no intrahepatic biliary ductal dilatation. Gallbladder: Surgically absent noting clips in the gallbladder fossa. Spleen: Normal in size and attenuation. Pancreas: The unenhanced pancreas is atrophic and grossly unremarkable. Adrenal glands: Unremarkable. Kidneys: The unenhanced kidneys demonstrate cortical atrophy and are without hydronephrosis. No renal calculi are identified. Renal sinus cysts are seen bilaterally. There is no evidence of contour deforming renal mass lesion. Abdominal vasculature: The abdominal aorta is normal in course and caliber. Bowel: There is diffuse colonic wall thickening and edema. This extends from the cecum to the rectum is consistent with a nonspecific proctocolitis. There is no pericolonic inflammation and fluid. No bowel obstruction is seen. There is colonic diverticulosis without CT evidence of acute diverticulitis. The appendix is not identified and reported surgically absent. Peritoneum: No intraperitoneal free air is identified. There is a small volume of abdominopelvic ascites. There is a small fat-containing umbilical hernia. Lymphadenopathy: None. Pelvic viscera: The bladder is partially decompressed and appears circumferentially thick walled. The uterus and adnexa are normal as visualized. Skeletal structures: The skeletal structures are heterogeneously osteopenic. There is an acute to subacute superior endplate compression fracture of L1. This is new from 12/14/2022. There is only minimal loss of height. There is no significant retropulsion of fragments. Mild paravertebral edema is observed. Mild/moderate lumbosacral spondylosis is observed. No lytic or blastic lesions are seen. IMPRESSION: 1. There is a moderate to severe nonspecific proctocolitis, likely on an infectious or inflammatory basis. This extends from the cecum to the rectum. Clinical correlation will be required. 2. Small volume of abdominopelvic ascites. 3. Acute to subacute superior endplate compression fracture of L1. This is new from 12/14/2022. No significant retropulsion of fragments is seen. 4. Additional findings as above. ACT 112: Negative or not required by law. Electronically signed by: Crispin Carmen M.D. 01/16/2023 4:45 PM Discharge Plan Visit Data Chief Complaint: Weakness Stated Complaint: WEAKNESS ED Provider: Trever No Discharge Problem: Septic shock, Atrial fibrillation with RVR, NSTEMI (non-ST elevated myocardial infarction), Pancolitis Patient Disposition: Admitted As Inpatient Discharge Instructions Interventions: ED Discharge Assessment Last Done: 01/16/23 20:51
[2023-01-16] MEDS ORDERED: ONDANSETRON INJ 2 MG/ML 2 ML VIAL IV STA (14:14)
--- NOTE | 2023-01-16 14:15 | XRay Report ---
SINGLE VIEW CHEST CLINICAL HISTORY: Sepsis. FINDINGS: An AP, portable, upright chest radiograph is compared to study dated 12/09/2022. The heart is mildly enlarged noting atherosclerotic calcification of the thoracic aorta. The pulmonary vasculatur e is noncongested. Nonspecific interstitial thickening is similar to previous. There is mild bibasila r scarring/atelectasis. The lungs and pleural spaces are otherwise clear. No pneumothorax is seen. Th e skeletal structures are osteopenic. The bony thorax is grossly intact. Cholecystectomy clips are no truong in the right upper quadrant. IMPRESSION: No active disease in the chest. ACT 112: Negative or not required by law. Electronically signed by: Crispin Carmen M.D. 01/16/2023 2:14 PM
--- NOTE | 2023-01-16 15:01 | Electrocardiogram Report ---
Test Reason : Blood Pressure : / mmHG Vent. Rate : 150 BPM Atrial Rate : 000 BPM P-R Int : 000 ms QRS Dur : 086 ms QT Int : 304 ms P-R-T Axes : 000 -59 135 degrees QTc Int : 480 ms Atrial fibrillation with rapid ventricular response Left anterior fascicular block Marked ST abnormality, possible lateral subendocardial injury Abnormal ECG When compared with ECG of 14-DEC-2022 18:55, Significant changes have occurred Confirmed by Trever Bloom ([id number]) on 01/16/2023 3:00:51 PM Referred By: Confirmed By:Trever Bloom
[2023-01-16] MEDS ORDERED: SODIUM CHLORIDE 0.9% 1,000 ML IV ONE ×3 (15:36→17:02)
[2023-01-16 15:38] LABS: Albumin Level 2.9 gm/dl (3.4-5.0); BUN Creatinine Ratio 17.6 (10-20); Bilirubin Direct 0.1 mg/dl (0-0.2); Bilirubin,Total 1.3 mg/dl (0.2-1.0); Calcium 8.7 mg/dl (8.6-10.3); Creatinine Clr Calc Pharmacy 16.8 ml/min; Est GFR (African American) 20.4 ml/min; Est GFR (Non-African American) 17.6 ml/min; Magnesium 2.5 mg/dl (1.7-2.4); Potassium 3.4 mmol/L (3.5-5.1); Thyroid Stimulating Hormone 5.54 uIu/ml (0.300-4.500); Total Protein 4.8 gm/dl (6.0-8.3); Troponin I High Sensitivity 109.1 pg/ml (0-14)
[2023-01-16] MEDS ORDERED: CEFEPIME 2,000 MG/20 ML VIAL IV STA (15:47)
[2023-01-16 15:48] LABS: Hematocrit (blood only) 45.8 % (37.0-47.0); Hemoglobin 16.6 g/dl (12.0-16.0); Mean Corpuscular Hemoglobin 29.9 pg (25.0-34.0); Mean Corpuscular Hgb Conc 36.2 g/dL (32.0-36.0); Mean Corpuscular Volume 82.5 fL (80.0-100.0); Mean Platelet Volume 10.9 fL (9.4-12.4); Platelet Count 173 K/uL (130-400); RDW Coefficient of Variation 16.3 % (11.5-14.5); RDW Standard Deviation 48.3 fL (36.4-46.3); Red Blood Count 5.55 M/uL (4.20-5.40); White Blood Count 34.29 K/ul (4.8-10.8)
[2023-01-16 16:06] LABS: Basophils % (auto) 0.3 %; Echinocytes 2+; Eosinophils # (auto) 0.05 K/uL (0.00-0.50); Eosinophils % (auto) 0.1 %; Immature Granulocytes # (auto) 0.94 K/uL (0.01-0.20); Immature Granulocytes % (auto) 2.7 %; Lymphocytes # (auto) 2.84 K/uL (1.20-3.40); Lymphocytes % (auto) 8.3 %; Monocytes # (auto) 1.43 K/uL (0.11-0.59); Monocytes % (auto) 4.2 %; Neutrophils # (auto) 28.93 K/uL (1.40-6.50); Neutrophils % (auto) 84.4 %; Polychromasia 1+
[2023-01-16 16:12] LABS: INR 1.7 (0.9-1.1); Partial Thromboplastin Ratio 1.1; Prothrombin Time 18.2 Seconds (9.0-12.0)
[2023-01-16 16:20] LABS: Allen Test Pos (Pos); Base Excess ABG -8.7 mEq/L (-9-1.8); HCO3 ABG 13 mmol/L (19-24); Oxygen Saturation ABG 98.9 % (90-95); PCO2 ABG 20 mmHg (35-46); PO2 ABG 96 mmHg (80-95); pH ABG 7.43 (7.35-7.45)
--- NOTE | 2023-01-16 16:47 | CT Scan Report ---
CT SCAN OF THE ABDOMEN AND PELVIS WITHOUT IV CONTRAST CLINICAL HISTORY: Generalized abdominal pain. COMPARISON STUDY: Abdominal CT dated 12/14/2022. TECHNIQUE: CT scan of the abdomen and pelvis is performed from the lung bases to the proximal femora. Images are reviewed in the axial, sagittal, and coronal planes. IV contrast was not administered for this examination. Note that the examination was performed in significantly suboptimal fashion withou t oral and IV contrast. A dose lowering technique was utilized adhering to the principles of ALARA. CT DOSE: 499.98 mGy.cm FINDINGS: Lung bases: The heart is mildly enlarged and without pericardial effusion. The coronary arteries are densely calcified. The lung bases are clear noting bibasilar scarring/atelectasis. There is a small h iatal hernia. Liver: The unenhanced liver is normal in size, contour, and attenuation. There is no intrahepatic olivia iary ductal dilatation. Gallbladder: Surgically absent noting clips in the gallbladder fossa. Spleen: Normal in size and attenuation. Pancreas: The unenhanced pancreas is atrophic and grossly unremarkable. Adrenal glands: Unremarkable. Kidneys: The unenhanced kidneys demonstrate cortical atrophy and are without hydronephrosis. No renal calculi are identified. Renal sinus cysts are seen bilaterally. There is no evidence of contour defo rming renal mass lesion. Abdominal vasculature: The abdominal aorta is normal in course and caliber. Bowel: There is diffuse colonic wall thickening and edema. This extends from the cecum to the rectum is consistent with a nonspecific proctocolitis. There is no pericolonic inflammation and fluid. No martha wel obstruction is seen. There is colonic diverticulosis without CT evidence of acute diverticulitis. The appendix is not identified and reported surgically absent. Peritoneum: No intraperitoneal free air is identified. There is a small volume of abdominopelvic asci amy. There is a small fat-containing umbilical hernia. Lymphadenopathy: None. Pelvic viscera: The bladder is partially decompressed and appears circumferentially thick walled. The uterus and adnexa are normal as visualized. Skeletal structures: The skeletal structures are heterogeneously osteopenic. There is an acute to sub acute superior endplate compression fracture of L1. This is new from 12/14/2022. There is only minimal loss of height. There is no significant retropulsion of fragments. Mild paravertebral edema is obser isak. Mild/moderate lumbosacral spondylosis is observed. No lytic or blastic lesions are seen. IMPRESSION: 1. There is a moderate to severe nonspecific proctocolitis, likely on an infectious or inflammatory b asis. This extends from the cecum to the rectum. Clinical correlation will be required. 2. Small volume of abdominopelvic ascites. 3. Acute to subacute superior endplate compression fracture of L1. This is new from 12/14/2022. No sig nificant retropulsion of fragments is seen. 4. Additional findings as above. ACT 112: Negative or not required by law. Electronically signed by: Crispin Carmen M.D. 01/16/2023 4:45 PM
[2023-01-16] MEDS ORDERED: metroNIDAZOLE 500 MG/100 ML BAG IV STA (17:38)
[2023-01-16] MEDS ORDERED: HYDROCORTISONE SOD SUCCINATE 100 MG/2 ML VIAL IV STA (17:38)
[2023-01-16] MEDS ORDERED: PHYTONADIONE 10 MG in DEXTROSE 5% 50 ML IV ONE (17:38)
[2023-01-16] MEDS ORDERED: ALBUMIN 25% 25 GM/100 ML VIAL IV ONE (17:49)
--- NOTE | 2023-01-16 18:10 | History & Physical Report ---
Date of Service January 16, 2023 Assessment & Plan (1) Septic shock: (2) Atrial fibrillation with RVR: (3) Collagenous colitis: (4) Proctocolitis, ulcerative: (5) GERD (gastroesophageal reflux disease): (6) ZEV (acute kidney injury): (7) Dehydration: (8) Hypotension: (9) Closed L1 vertebral fracture: (10) NSTEMI (non-ST elevated myocardial infarction): (11) Coagulopathy: (12) Admitted to intensive care unit: Plan Septic shock/hypotension/moderately severe proctocolitis- Admit to intensive care unit Secondary to moderately severe proctocolitis and decreased oral intake with significant hypovolemia/dehydration Complicated by atrial fibrillation with RVR Receiving 3 L normal saline in the ED Cefepime 2 g IV and Flagyl 5 mg IV to be given in ED Give hydrocortisone 100 mg IV Give albumin 2.5 g IV in the ED Hold amlodipine and lisinopril/HCTZ Moderately severe proctocolitis/history of collagenous colitis- Extending from cecum to rectum Cefepime 2 g IV every 12 hours Flagyl 500 mg IV every 8 hours Hydrocortisone IV for adrenal insufficiency and treatment Consult gastroenterology Atrial fibrillation with RVR/elevated troponin- Troponin 129.9, follow-up with serial troponins May just be secondary to increased heart rate Potassium 3.4 in setting of acute kidney injury Give potassium chloride 10 mEq IV x1 Magnesium 2.5 Follow laboratory serially Heart rate is compensatory at this point due to hypovolemia, so for now principal treatment is IV fluids Order complete echocardiogram Consult cardiology Acute kidney injury- Creatinine 2.50, with baseline 0.74 Receiving 3 L normal saline in the ED Follow laboratories serially recheck labs within 4 hours of original BMP Holding lisinopril/HCTZ Adrenal insufficiency- On prednisone in the outpatient setting Advised hydrocortisone 100 mg IV in ED, then IV every 8 hours Coagulopathy- INR 1.7, on no anticoagulation Vitamin K 10 mg IV x1 L1 compression fracture- Acute to subacute May be secondary to use of steroids Lidoderm patch if needed History of Present Illness Chief Complaint: The patient presented to the emergency department with generalized weakness, with decreased oral intake over the past few weeks, severe fatigue, and nausea without vomiting. Primary Care Provider: Shelley Licea DO The patient is an 82-year-old female with a past medical history including collagenous colitis, GERD, osteopenia, hypertension, osteoarthritis. Her last hospitalization at [facility] was from 12/14-12/18/2022. She presents to the emergency department with symptoms as noted above. Heart monitor and EKG showed her to be in atrial fibrillation with RVR, with heart rate in the 140s to 150s, and systolic blood pressure in the low 80s. CT scan of abdomen and pelvis showed moderate to severe proctocolitis extending from cecum to the rectum, and showed an L1 compression fracture Significant laboratories: WBC 34.29, hemoglobin 16.6, hematocrit 45.8, sodium 130, potassium 3.4, bicarb 15, creatinine 2.50, BUN 44 and glucose 188. INR was 1.7. Lactate 4.0, troponin 129.9, albumin 2.9 ABG pH 7.43, PCO2 20, PO2 96 and bicarb 13 Allergies Allergy/AdvReac Type Severity Reaction Status Date / Time Penicillins Allergy Unknown UNKNOWN Verified 12/25/22 13:17 Home Medications Medication Instructions Recorded Confirmed Type vitamins A,C,F-reje-fvqqtu 4,296 See Rx Instructions .Route .COMPLEX 10/18/21 12/25/22 History mcg-226 mg-90 mg capsule (PreserVision AREDS) calcium carbonate 600 mg calcium See Rx Instructions .Route .COMPLEX 12/09/22 12/25/22 History (1,500 mg) tablet (Calcium) cholecalciferol (vitamin D3) 25 See Rx Instructions .Route .COMPLEX 12/09/22 12/25/22 History mcg (1,000 unit) tablet (Vitamin D3) prednisone 5 mg tablet 5 mg .Route .COMPLEX 01/01/23 01/16/23 History amlodipine 5 mg tablet See Rx Instructions .Route .COMPLEX 01/16/23 History losartan 50 mg-hydrochlorothiazide See Rx Instructions .Route .COMPLEX 01/16/23 History 12.5 mg tablet mesalamine 1.2 gram tablet,delayed 4.8 g PO DAILY 01/16/23 01/16/23 History release (Lialda) potassium chloride 10 mEq See Rx Instructions .Route .COMPLEX 01/16/23 History capsule,extended release triamcinolone acetonide 0.1 % 1 applic topical BID PRN Other 01/16/23 01/16/23 History topical cream Past Med/Surg History Medical History Arthritis Diarrhea GERD (gastroesophageal reflux disease) Hypertension Hypokalemia Hyponatremia Osteopenia Surgical History H/O cataract extraction (2016) History of breast lump/mass excision (1987) Fibroid, 1987 S/P appendectomy S/P cholecystectomy (2009) S/P tonsillectomy Family History Mother Cardiac disorder Stroke Hypertension Myocardial infarction 80's Sister Cardiac disorder Stroke Hypertension Grandfather (Maternal) Diabetes Father No known health problems Denies family history of Ovarian cancer Prostate cancer Breast cancer Colorectal cancer Social History Smoking Status: Never smoker Second Hand Exposure: No; Do You Dip or Chew Tobacco: No; Hx Alcohol Use: No Hx Substance Use: No Preferred Language: Estonian Communication Ability: Effective Visual Impairment: No Limitations Hearing Ability: Normal Beliefs That Will Affect Care: None marital status: Current Living Situation: Spouse 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 Feels Safe at Home: Yes Diet: regular Diet Comment: regular caffeine: Yes during the past year weight has: remained stable Dental Care, Regularly: Yes Physical Activity Frequency: Daily Physical Activity Frequency Comment: walking/ housework Seatbelt Use: always Sunscreen Use: Yes Assistive Devices: Cane and Wheelchair Review of Systems Review of Systems: The patient denies chest pain, palpitations, cough, lower extremity swelling, sore throat, fevers, chills, sweats, vomiting, blood in urine, dysuria, urinary frequency or urgency, headache, memory loss, loss of consciousness, rash, imbalance, focal weakness, numbness or tingling in arms or legs, generalized arthralgias or myalgias, back or neck pain, or night sweats. The review of systems is otherwise negative other than for that already noted above, and at least 10 systems have been reviewed. Physical Exam Physical Exam: The patient is awake, alert and oriented 3, well developed and well nourished, normocephalic and atraumatic, lying in bed and in mild acute distress. HEENT--PERRL, EOMI, mucous membranes and oropharynx moderately dry. Neck--supple. No JVD. No bruits. Thyroid normal, trachea midline, no adenopathy. Heart--normal S1 and S2. No murmurs, rubs or gallops. Lungs--clear bilaterally, no respiratory distress, no accessory muscle use. Abdomen--normal bowel sounds and soft. Generalized tenderness. Nondistended Extremities--no cyanosis or clubbing. No edema. Dermatologic--skin is dry Neurologic--cranial nerves II through XII grossly intact. Rheumatologic--normal range of motion. Psychiatric--normal affect. Results & Data Results & Data Vital Signs (Past 12 Hours) Vital Signs Temp Pulse Pulse Resp BP BP Pulse Ox 01/16/23 18:09 159 H 01/16/23 16:07 163 H 26 H 81/63 L 01/16/23 14:12 165 H 24 99 01/16/23 14:10 153 H 01/16/23 13:56 36.7 C 148 H 22 119/88 99 01/16/23 13:56 99 01/16/23 13:56 36.7 C 165 H 24 119/88 99 O2 Del Method 01/16/23 18:09 01/16/23 16:07 01/16/23 14:12 Room Air 01/16/23 14:10 01/16/23 13:56 Room Air 01/16/23 13:56 Room Air 01/16/23 13:56 Room Air Laboratory Results Laboratory Results WBC 34.29 K/ul (4.8-10.8) H* 01/16/23 15:12 RBC 5.55 M/uL (4.20-5.40) H 01/16/23 15:12 Hgb 16.6 g/dl (12.0-16.0) H 01/16/23 15:12 Hct 45.8 % (37.0-47.0) 01/16/23 15:12 MCV 82.5 fL (80.0-100.0) 01/16/23 15:12 MCH 29.9 pg (25.0-34.0) 01/16/23 15:12 MCHC 36.2 g/dL (32.0-36.0) H 01/16/23 15:12 RDW Std Deviation 48.3 fL (36.4-46.3) H 01/16/23 15:12 RDW Coeff of Anant 16.3 % (11.5-14.5) H 01/16/23 15:12 Plt Count 173 K/uL (130-400) 01/16/23 15:12 MPV 10.9 fL (9.4-12.4) 01/16/23 15:12 Immature Gran % (Auto) 2.7 % 01/16/23 15:12 Neut % (Auto) 84.4 % 01/16/23 15:12 Lymph % (Auto) 8.3 % 01/16/23 15:12 [place] % (Auto) 4.2 % 01/16/23 15:12 Eos % (Auto) 0.1 % 01/16/23 15:12 Baso % (Auto) 0.3 % 01/16/23 15:12 Neut # (Auto) 28.93 K/uL (1.40-6.50) H 01/16/23 15:12 Lymph # (Auto) 2.84 K/uL (1.20-3.40) 01/16/23 15:12 [place] # (Auto) 1.43 K/uL (0.11-0.59) H 01/16/23 15:12 Eos # (Auto) 0.05 K/uL (0.00-0.50) 01/16/23 15:12 Baso # (Auto) 0.10 K/uL (0.00-0.20) 01/16/23 15:12 Immature Gran # (Auto) 0.94 K/uL (0.01-0.20) H 01/16/23 15:12 Polychromasia 1+ 01/16/23 15:12 Echinocytes 2+ 01/16/23 15:12 PT 18.2 Seconds (9.0-12.0) H 01/16/23 15:12 INR 1.7 (0.9-1.1) H 01/16/23 15:12 APTT 31.0 Seconds (21.0-31.0) 01/16/23 15:12 PTT Ratio 1.1 01/16/23 15:12 ABG pH 7.43 (7.35-7.45) 01/16/23 16:09 ABG pCO2 20 mmHg (35-46) L 01/16/23 16:09 ABG pO2 96 mmHg (80-95) H 01/16/23 16:09 ABG HCO3 13 mmol/L (19-24) L 01/16/23 16:09 ABG O2 Saturation 98.9 % (90-95) H 01/16/23 16:09 ABG Base Excess -8.7 mEq/L (-9-1.8) 01/16/23 16:09 [place] Test Pos (Pos) 01/16/23 16:09 Barometric Pressure Cancelled 01/16/23 15:14 Oxygen Given ROOM AIR 01/16/23 16:09 Sodium 130 mmol/L (136-145) L 01/16/23 14:36 Potassium 3.4 mmol/L (3.5-5.1) L 01/16/23 14:36 Chloride 96 mmol/L (98-107) L 01/16/23 14:36 Carbon Dioxide 15 mmol/L (21-32) L 01/16/23 14:36 Anion Gap 19 (3-11) H 01/16/23 14:36 BUN 44 mg/dl (6-23) H 01/16/23 14:36 Creatinine 2.50 mg/dl (0.6-1.2) H 01/16/23 14:36 Est Cr Clr Drug Dosing 16.8 ml/min 01/16/23 14:36 Est GFR ( Amer) 20.4 ml/min 01/16/23 14:36 Est GFR (Non-Af Amer) 17.6 ml/min 01/16/23 14:36 BUN/Creatinine Ratio 17.6 (10-20) 01/16/23 14:36 Glucose 188 mg/dl (70-99(Fasting)) H 01/16/23 14:36 Osmolality 281 mOsm/kg (280-300) 01/16/23 16:09 Lactate 4.0 mmol/L (0.4-2.0) H* 01/16/23 15:12 Calcium 8.7 mg/dl (8.6-10.3) 01/16/23 14:36 Magnesium 2.5 mg/dl (1.7-2.4) H 01/16/23 14:36 Total Bilirubin 1.3 mg/dl (0.2-1.0) H 01/16/23 14:36 Direct Bilirubin 0.1 mg/dl (0-0.2) 01/16/23 14:36 AST 20 U/L (13-39) 01/16/23 14:36 ALT 16 U/L (7-52) 01/16/23 14:36 Alkaline Phosphatase 65 U/L (34-104) 01/16/23 14:36 Troponin I High Sens 129.9 pg/ml (0-14) H* 01/16/23 16:10 Total Protein 4.8 gm/dl (6.0-8.3) L 01/16/23 14:36 Albumin 2.9 gm/dl (3.4-5.0) L 01/16/23 14:36 Procalcitonin 2.60 ng/ml (0-0.5) H 01/16/23 15:12 TSH 5.540 uIu/ml (0.300-4.500) H 01/16/23 14:36 Free T4 1.85 ng/dl (0.61-1.60) H 01/16/23 14:36 Random Cortisol > 60.00 mcg/dl 01/16/23 16:09 Urine Color [place] 01/16/23 Unknown Urine Appearance Cloudy (Clear) A 01/16/23 Unknown Urine pH 5.0 (4.5-7.5) 01/16/23 Unknown Ur Specific [place] 1.025 (1.000-1.030) 01/16/23 Unknown Urine Protein 1+ (Negative) H 01/16/23 Unknown Urine Glucose (UA) Trace (Negative) H 01/16/23 Unknown Urine Ketones Trace (Negative) H 01/16/23 Unknown Urine Blood Negative (Negative) 01/16/23 Unknown Urine Nitrite Positive (Negative) A 01/16/23 Unknown Urine Bilirubin 2+ (Negative) H 01/16/23 Unknown Urine Urobilinogen Negative (Negative) 01/16/23 Unknown Ur Leukocyte Esterase 1+ (Negative) H 01/16/23 Unknown Urine WBC (Auto) 10-30 /hpf (0-5) H 01/16/23 Unknown Urine RBC (Auto) 0-4 /hpf (0-4) 01/16/23 Unknown U Hyaline Cast (Auto) 10-30 /lpf (0-5) H 01/16/23 Unknown U Epithel Cells (Auto) >30 /lpf (0-5) H 01/16/23 Unknown Urine Bacteria (Auto) Negative (Negative) 01/16/23 Unknown Urine Yeast Not Reportable 01/16/23 Unknown Urine Osmolality 376 mOsm/kg (500-800) L 01/16/23 Unknown Ur Random Sodium 12 mmol/L 01/16/23 Unknown Blood Type A Negative 01/16/23 16:10 Antibody Screen NEGATIVE 01/16/23 16:10 Antibody Identification Cancelled 01/16/23 16:10 Antibody ID Comment Cancelled 01/16/23 16:10 Impressions Chest X-Ray 01/16/23 14:02 SINGLE VIEW CHEST CLINICAL HISTORY: Sepsis. FINDINGS: An AP, portable, upright chest radiograph is compared to study dated 12/09/2022. The heart is mildly enlarged noting atherosclerotic calcification of the thoracic aorta. The pulmonary vasculature is noncongested. Nonspecific interstitial thickening is similar to previous. There is mild bibasilar scarring/atelectasis. The lungs and pleural spaces are otherwise clear. No pneumothorax is seen. The skeletal structures are osteopenic. The bony thorax is grossly intact. Cholecystectomy clips are noted in the right upper quadrant. IMPRESSION: No active disease in the chest. ACT 112: Negative or not required by law. Electronically signed by: Crispin Carmen M.D. 01/16/2023 2:14 PM Abdomen/Pelvis CT 01/16/23 15:47 CT SCAN OF THE ABDOMEN AND PELVIS WITHOUT IV CONTRAST CLINICAL HISTORY: Generalized abdominal pain. COMPARISON STUDY: Abdominal CT dated 12/14/2022. TECHNIQUE: CT scan of the abdomen and pelvis is performed from the lung bases to the proximal femora. Images are reviewed in the axial, sagittal, and coronal planes. IV contrast was not administered for this examination. Note that the examination was performed in significantly suboptimal fashion without oral and IV contrast. A dose lowering technique was utilized adhering to the principles of ALARA. CT DOSE: 499.98 mGy.cm FINDINGS: Lung bases: The heart is mildly enlarged and without pericardial effusion. The coronary arteries are densely calcified. The lung bases are clear noting bibasilar scarring/atelectasis. There is a small hiatal hernia. Liver: The unenhanced liver is normal in size, contour, and attenuation. There is no intrahepatic biliary ductal dilatation. Gallbladder: Surgically absent noting clips in the gallbladder fossa. Spleen: Normal in size and attenuation. Pancreas: The unenhanced pancreas is atrophic and grossly unremarkable. Adrenal glands: Unremarkable. Kidneys: The unenhanced kidneys demonstrate cortical atrophy and are without hydronephrosis. No renal calculi are identified. Renal sinus cysts are seen bilaterally. There is no evidence of contour deforming renal mass lesion. Abdominal vasculature: The abdominal aorta is normal in course and caliber. Bowel: There is diffuse colonic wall thickening and edema. This extends from the cecum to the rectum is consistent with a nonspecific proctocolitis. There is no pericolonic inflammation and fluid. No bowel obstruction is seen. There is colonic diverticulosis without CT evidence of acute diverticulitis. The appendix is not identified and reported surgically absent. Peritoneum: No intraperitoneal free air is identified. There is a small volume of abdominopelvic ascites. There is a small fat-containing umbilical hernia. Lymphadenopathy: None. Pelvic viscera: The bladder is partially decompressed and appears circumferentially thick walled. The uterus and adnexa are normal as visualized. Skeletal structures: The skeletal structures are heterogeneously osteopenic. There is an acute to subacute superior endplate compression fracture of L1. This is new from 12/14/2022. There is only minimal loss of height. There is no significant retropulsion of fragments. Mild paravertebral edema is observed. Mild/moderate lumbosacral spondylosis is observed. No lytic or blastic lesions are seen. IMPRESSION: 1. There is a moderate to severe nonspecific proctocolitis, likely on an infectious or inflammatory basis. This extends from the cecum to the rectum. Clinical correlation will be required. 2. Small volume of abdominopelvic ascites. 3. Acute to subacute superior endplate compression fracture of L1. This is new from 12/14/2022. No significant retropulsion of fragments is seen. 4. Additional findings as above. ACT 112: Negative or not required by law. Electronically signed by: Crispin Carmen M.D. 01/16/2023 4:45 PM Code Status & VTE Plan Code Status Full code VTE Prophylaxis Plan VTE Prophylaxis will be ordered: Yes PG Care Time/CCT Total # of Minutes Spent Total Time Spent with Patient: Total time spent is greater than 50% in coordination of care (as documented) at patient's floor/unit and/or counseling patient: Coding Level of Care Code 46770 INT INP/OBS CARE 75MIN Diagnoses Septic shock A41.9; R65.21 Atrial fibrillation with RVR I48.91 Collagenous colitis K52.831 Proctocolitis, ulcerative K51.30 GERD (gastroesophageal reflux disease) K21.9 ZEV (acute kidney injury) N17.9 Dehydration E86.0 Hypotension I95.9 Closed L1 vertebral fracture S32.019A NSTEMI (non-ST elevated myocardial infarction) I21.4 Coagulopathy D68.9 Admitted to intensive care unit Z78.9
[2023-01-16 18:16] LABS: Appearance Urine Cloudy (Clear); Bacteria Urine Automated Negative (Negative); Blood Urine Negative (Negative); Color Urine Orange; Epithelial Cell Urine Auto >30 /lpf (0-5); Glucose Urine UA Trace (Negative); Ketones Urine Trace (Negative); Leukocyte Esterase Urine 1+ (Negative); Nitrite Urine Positive (Negative); Protein Urine 1+ (Negative); RBC Urine Automated 0-4 /hpf (0-4); Specific Gravity Urine 1.025 (1.000-1.030); Urobilinogen Urine Negative (Negative)
[2023-01-16 18:18] LABS: Bilirubin Urine 2+ (Negative)
[2023-01-16 18:44] LABS: T4 Free Thyroxine 1.85 ng/dl (0.61-1.60)
[2023-01-16] MEDS: POTASSIUM CHLORIDE / WTR 10 MEQ/100 ML PLCT IV ONE ×2 (18:53→23:14)
--- NOTE | 2023-01-16 19:03 | Critical Care Consultation ---
Date of Consultation January 16, 2023 Assessment & Plan (1) Afib: (2) Colitis: (3) Coagulopathy: (4) Closed L1 vertebral fracture: (5) Septic shock: (6) GERD (gastroesophageal reflux disease): (7) Hypertension: (8) Osteopenia: Plan Reason Critically Ill: 82 YOF admitted meeting SIRS criteria found with evidence of colitis on CT abdomen/pelvis, she is hypovolemic with end organ dysfunction to include Afib, ZEV, and elevated lactic acid. ICU for management of sepsis, central venous access, and monitoring of hemodynamics. Neuro - No acute needs CAM ICU: NEGATIVE Cardiac - Afib/flutter, Shock, Elevated HsCTNI - Shock multifactorial to include septic with source being GI as well as hypovolemic - Maintain Maps >65- vasopressor initiation if needed - Volume resuscitate as long as volume responsive and to Urine output- lactate currently downtrending- 3L crystalloid in currently - For her Afib/flutter- appears more flutter when HR drops to 130s- achieve euvolemia, replace electrolytes- consider BB initiation once the above has been achieved - if remains with elevated HR > 130 consider esmolol vs. amiodarone - Hold on anticoagulation at this time giving reports of UC and blood in stools - HsCTNI likely demand type II as she is without STEMI on ECG as well as without chest pain- trend troponin and ECG - ECHO in morning Respiratory - No acute needs GI - Colitis - infective vs. flare of UC- PCT is elevated and WBC elevated- she has not had diarrhea since arrival- send C.diff if clinically worsens would empirically treat Combination per GI - UC and Collagenous- continue with steroids and mesalamine - WBC 35- will add C.DIFF with recent hospitalization and abx therapy - Continue with cefepime and flagyl RENAL/LYTES - ARF, multiple electrolyte abnormalities, metabolic acidosis, - ARF per KDIGO- has not made much urine following initial volume resuscitation- likely pre-renal secondary to hypovolemia and septic shock - Maintain MAPS>65 achieve UO - Hyponatremia likely hypovolemic and decrease solute intake- follow with volume resuscitation - Metabolic Acidosis secondary to sepsis and renal dysfunction - Replete electrolytes - Hold ARB/HCTZ - No acute needs UA appears contaminated without bacterial ENDO - Abnormal TSH and T4 - Elevated TSH and T4- previous TSH 2.3 on 9/10/23- current levels likely reflecting acute illness and stress HEME - See ID ID - Colitis/GI infection septic shock - Septic shock likely secondary to GI infection - with organ dysfunction of heart, renals - Continue with stress dose steroids - Continue mesalamine if remains off vasopressors LINES/IV ACCESS - PIV, Marx, CVL Continue use of these lines DVT PROPHYLAXIS - SCDS DISPO: ICU overnight I have personally spent 70 minutes of critical care time in the direct management of this patient. This is a life/limb threatening event. This includes time spent evaluating patient, direct bedside care, chart review, placing orders, interpretation of diagnostic studies, discussion with consultants, patient, and family members, as well as other required patient management activities. This time is exclusive of all separately billable procedures, and separate from and in addition to any other critical care service time. Thank you for allowing us to participate in the care of this patient. Please refer to my attending physician's documentation for any further recommendations. History of Present Illness Reason for Consultation: Colitis, poor IV access Requesting Physician: Justin Meehan MD Attending Physician: Justin Meehan MD History of Present Illness 82 YOF with medical history of: HTN, GERD, osteopenia with L1 endplate fracture ? acuity, Colitis which appears by GI to have component of of Ulcerative and Collagenous Colitis. Patient is followed by Dr. Zeng via GI and had colonoscopy performed 12/16/22 that was "suspicious" for ulcerative colitis as well she had a positive calprotectin. She was initiated on prednisone taper at that time, had follow up 12/25/22 and continued with prednisone taper as well as added mesalamine. Patient reports that she was feeling well up until a few days ago, where she had onset of diarrhea that was not bloody and initially had some stool particles in it. Since that time and over the past 4 days, anything she would eat would initiate diarrhea ~20 minutes after ingestion. This diarrhea was mostly water and had some small amount of blood in it as well as on toilet paper and she is unsure of fatty appearance or other color. Associated with lower quadrant abdominal pain and without fevers. She has not had much oral intake of food or water over the past 4-5 days. She arrived to the [facility] Tachycardic to the 160s and hypotensive 80/60s. She is also found to be in Afib/flutter, which appears to be new to her. She was given 3L of crystalloid, blood cultures obtained and UA, received dose of Cefepime and started on steroids. She is with poor IV access that keeps infiltrating and will likely need central access. She appears very dehydrated with minimal urine output. Will admit to ICU for volume replacement, trending of hemodynamics, rate control for afib/flutter as able following adequate volume and electrolyte replacement and vasopressors if needed. GI consultation, borad spectrum antibiotic therapy. CODE: FULL Allergies Allergy/AdvReac Type Severity Reaction Status Date / Time Penicillins Allergy Unknown UNKNOWN Verified 12/25/22 13:17 Home Medications Medication Instructions Recorded Confirmed Type vitamins A,C,[id number] 4,296 See Rx Instructions .Route .COMPLEX 10/18/21 12/25/22 History mcg-226 mg-90 mg capsule (PreserVision AREDS) calcium carbonate 600 mg calcium See Rx Instructions .Route .COMPLEX 12/09/22 12/25/22 History (1,500 mg) tablet (Calcium) cholecalciferol (vitamin D3) 25 See Rx Instructions .Route .COMPLEX 12/09/22 12/25/22 History mcg (1,000 unit) tablet (Vitamin D3) prednisone 5 mg tablet 5 mg .Route .COMPLEX 01/01/23 01/16/23 History amlodipine 5 mg tablet See Rx Instructions .Route .COMPLEX 01/16/23 History losartan 50 mg-hydrochlorothiazide See Rx Instructions .Route .COMPLEX 01/16/23 History 12.5 mg tablet mesalamine 1.2 gram tablet,delayed 4.8 g PO DAILY 01/16/23 01/16/23 History release (Lialda) potassium chloride 10 mEq See Rx Instructions .Route .COMPLEX 01/16/23 History capsule,extended release triamcinolone acetonide 0.1 % 1 applic topical BID PRN Other 01/16/23 01/16/23 History topical cream Patient History Medical History (Updated 01/16/23 @ 21:14 by TED Owen) Afib Arthritis Colitis Diarrhea GERD (gastroesophageal reflux disease) Hypertension Hypokalemia Hyponatremia Osteopenia Surgical History H/O cataract extraction (2016) History of breast lump/mass excision (1987) Fibroid, 1987 S/P appendectomy S/P cholecystectomy (2009) S/P tonsillectomy Family History Mother Cardiac disorder Stroke Hypertension Myocardial infarction 80's Sister Cardiac disorder Stroke Hypertension Grandfather (Maternal) Diabetes Father No known health problems Denies family history of Ovarian cancer Prostate cancer Breast cancer Colorectal cancer Social History Smoking Status: Never smoker Second Hand Exposure: No; Do You Dip or Chew Tobacco: No; Hx Alcohol Use: No Hx Substance Use: No Preferred Language: Turkish Communication Ability: Effective Visual Impairment: No Limitations Hearing Ability: Normal Sheet Rock Applicator Required: No Beliefs That Will Affect Care: None marital status: Current Living Situation: Spouse 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 Feels Safe at Home: Yes Diet: regular Diet Comment: regular caffeine: Yes during the past year weight has: remained stable Dental Care, Regularly: Yes Physical Activity Frequency: Daily Physical Activity Frequency Comment: walking/ housework Seatbelt Use: always Sunscreen Use: Yes Assistive Devices: Cane and Wheelchair Review of Systems Review of Systems: REVIEW OF SYSTEMS: Constitutional: (+) increase fatigue, No fever, sweats or chills Eyes: No diplopia, no worsening or blurred vision ENT: normal hearing, no trouble swallowing Respiratory: No cough, sputum, dyspnea at rest or on exertion Cardiovascular: (+) palpitations, No chest pain, tightness Abdomen: (+) pain, diarrhea, nausea, vomiting, diarrhea Musculoskeletal: No joint pain, calf pain, swelling Neurologic: No weakness, numbness/tingling, or balance problems Psychiatric: No anxiety or depression Skin: No rash or itch Physical Exam Physical Exam: PHYSICAL EXAM: General: awake, alert, Head: Normocephalic, atraumatic ENT: PERRLA, EOMI, no pharyngeal exudate, mucous membranes dry Neuro: AAO x 3, speech clear and appropriate, strength intact bilaterally 5/5, sensation intact and equal all extremities and dermatomes, no pronator drift Chest: equal rise and fall of the chest, no accessory muscle use, no heaves or thrills, Clear to auscultation, on room air, Cardiac: irregular rate and rhythm, telemetry reviewed- afib, skin cool dry, cap refill ~3 seconds, peripheral pulses +2 no JVD, no murmur, no edema GI: NABS x 4 quadrants, soft, nontender to palpation, no rebound, guarding or tenderness : Marx to gravity, no pain, no CVA tenderness, Extremities: Normal inspection, no peripheral edema or erythema, calfs nontender to palpation Psych: Normal mood and affect Skin: no rash or erythema Results & Data Results & Data Vital Signs (Past 12 Hours) Vital Signs Temp Pulse Pulse Resp BP BP Pulse Ox 01/16/23 18:04 146 H 18 116/89 98 01/16/23 18:09 159 H 01/16/23 16:07 163 H 26 H 81/63 L 01/16/23 14:12 165 H 24 99 01/16/23 14:10 153 H 01/16/23 13:56 36.7 C 148 H 22 119/88 99 01/16/23 13:56 99 01/16/23 13:56 36.7 C 165 H 24 119/88 99 O2 Del Method 01/16/23 18:04 01/16/23 18:09 01/16/23 16:07 01/16/23 14:12 Room Air 01/16/23 14:10 01/16/23 13:56 Room Air 01/16/23 13:56 Room Air 01/16/23 13:56 Room Air Laboratory Results Abnormal lab results 01/16/23 01/16/23 01/16/23 Range/Units 14:36 15:12 15:12 WBC 34.29 H* (4.8-10.8) K/ul RBC 5.55 H (4.20-5.40) M/uL Hgb 16.6 H (12.0-16.0) g/dl MCHC 36.2 H (32.0-36.0) g/dL RDW Std Deviation 48.3 H (36.4-46.3) fL RDW Coeff of Anant 16.3 H (11.5-14.5) % Neut # (Auto) 28.93 H (1.40-6.50) K/uL Charlotte # (Auto) 1.43 H (0.11-0.59) K/uL Immature Gran # (Auto) 0.94 H (0.01-0.20) K/uL PT (9.0-12.0) Seconds INR (0.9-1.1) ABG pCO2 (35-46) mmHg ABG pO2 (80-95) mmHg ABG HCO3 (19-24) mmol/L ABG O2 Saturation (90-95) % Sodium 130 L (136-145) mmol/L Potassium 3.4 L (3.5-5.1) mmol/L Chloride 96 L (98-107) mmol/L Carbon Dioxide 15 L (21-32) mmol/L Anion Gap 19 H (3-11) BUN 44 H (6-23) mg/dl Creatinine 2.50 H (0.6-1.2) mg/dl BUN/Creatinine Ratio (10-20) Glucose 188 H (70-99(Fasting)) mg/dl Lactate 4.0 H* (0.4-2.0) mmol/L Calcium (8.6-10.3) mg/dl Magnesium 2.5 H (1.7-2.4) mg/dl Total Bilirubin 1.3 H (0.2-1.0) mg/dl Troponin I High Sens 109.1 H* (0-14) pg/ml Total Protein 4.8 L (6.0-8.3) gm/dl Albumin 2.9 L (3.4-5.0) gm/dl Procalcitonin (0-0.5) ng/ml TSH 5.540 H (0.300-4.500) uIu/ml Free T4 1.85 H (0.61-1.60) ng/dl Urine Appearance (Clear) Urine Protein (Negative) Urine Glucose (UA) (Negative) Urine Ketones (Negative) Urine Nitrite (Negative) Urine Bilirubin (Negative) Ur Leukocyte Esterase (Negative) Urine WBC (Auto) (0-5) /hpf U Hyaline Cast (Auto) (0-5) /lpf U Epithel Cells (Auto) (0-5) /lpf Urine Osmolality (500-800) mOsm/kg 01/16/23 01/16/23 01/16/23 Range/Units 15:12 15:12 16:09 WBC (4.8-10.8) K/ul RBC (4.20-5.40) M/uL Hgb (12.0-16.0) g/dl MCHC (32.0-36.0) g/dL RDW Std Deviation (36.4-46.3) fL RDW Coeff of Anant (11.5-14.5) % Neut # (Auto) (1.40-6.50) K/uL Charlotte # (Auto) (0.11-0.59) K/uL Immature Gran # (Auto) (0.01-0.20) K/uL PT 18.2 H (9.0-12.0) Seconds INR 1.7 H (0.9-1.1) ABG pCO2 20 L (35-46) mmHg ABG pO2 96 H (80-95) mmHg ABG HCO3 13 L (19-24) mmol/L ABG O2 Saturation 98.9 H (90-95) % Sodium (136-145) mmol/L Potassium (3.5-5.1) mmol/L Chloride (98-107) mmol/L Carbon Dioxide (21-32) mmol/L Anion Gap (3-11) BUN (6-23) mg/dl Creatinine (0.6-1.2) mg/dl BUN/Creatinine Ratio (10-20) Glucose (70-99(Fasting)) mg/dl Lactate (0.4-2.0) mmol/L Calcium (8.6-10.3) mg/dl Magnesium (1.7-2.4) mg/dl Total Bilirubin (0.2-1.0) mg/dl Troponin I High Sens (0-14) pg/ml Total Protein (6.0-8.3) gm/dl Albumin (3.4-5.0) gm/dl Procalcitonin 2.60 H (0-0.5) ng/ml TSH (0.300-4.500) uIu/ml Free T4 (0.61-1.60) ng/dl Urine Appearance (Clear) Urine Protein (Negative) Urine Glucose (UA) (Negative) Urine Ketones (Negative) Urine Nitrite (Negative) Urine Bilirubin (Negative) Ur Leukocyte Esterase (Negative) Urine WBC (Auto) (0-5) /hpf U Hyaline Cast (Auto) (0-5) /lpf U Epithel Cells (Auto) (0-5) /lpf Urine Osmolality (500-800) mOsm/kg 01/16/23 01/16/23 01/16/23 Range/Units 16:10 20:10 20:10 WBC (4.8-10.8) K/ul RBC (4.20-5.40) M/uL Hgb (12.0-16.0) g/dl MCHC (32.0-36.0) g/dL RDW Std Deviation (36.4-46.3) fL RDW Coeff of Anant (11.5-14.5) % Neut # (Auto) (1.40-6.50) K/uL Charlotte # (Auto) (0.11-0.59) K/uL Immature Gran # (Auto) (0.01-0.20) K/uL PT (9.0-12.0) Seconds INR (0.9-1.1) ABG pCO2 (35-46) mmHg ABG pO2 (80-95) mmHg ABG HCO3 (19-24) mmol/L ABG O2 Saturation (90-95) % Sodium 130 L (136-145) mmol/L Potassium 2.8 L (3.5-5.1) mmol/L Chloride (98-107) mmol/L Carbon Dioxide 17 L (21-32) mmol/L Anion Gap (3-11) BUN 48 H (6-23) mg/dl Creatinine 2.32 H (0.6-1.2) mg/dl BUN/Creatinine Ratio 20.7 H (10-20) Glucose 159 H (70-99(Fasting)) mg/dl Lactate 2.2 H* (0.4-2.0) mmol/L Calcium 7.1 L (8.6-10.3) mg/dl Magnesium (1.7-2.4) mg/dl Total Bilirubin (0.2-1.0) mg/dl Troponin I High Sens 129.9 H* (0-14) pg/ml Total Protein (6.0-8.3) gm/dl Albumin 2.1 L (3.4-5.0) gm/dl Procalcitonin (0-0.5) ng/ml TSH (0.300-4.500) uIu/ml Free T4 (0.61-1.60) ng/dl Urine Appearance (Clear) Urine Protein (Negative) Urine Glucose (UA) (Negative) Urine Ketones (Negative) Urine Nitrite (Negative) Urine Bilirubin (Negative) Ur Leukocyte Esterase (Negative) Urine WBC (Auto) (0-5) /hpf U Hyaline Cast (Auto) (0-5) /lpf U Epithel Cells (Auto) (0-5) /lpf Urine Osmolality (500-800) mOsm/kg 01/16/23 01/16/23 Range/Units Unknown Unknown WBC (4.8-10.8) K/ul RBC (4.20-5.40) M/uL Hgb (12.0-16.0) g/dl MCHC (32.0-36.0) g/dL RDW Std Deviation (36.4-46.3) fL RDW Coeff of Anant (11.5-14.5) % Neut # (Auto) (1.40-6.50) K/uL Charlotte # (Auto) (0.11-0.59) K/uL Immature Gran # (Auto) (0.01-0.20) K/uL PT (9.0-12.0) Seconds INR (0.9-1.1) ABG pCO2 (35-46) mmHg ABG pO2 (80-95) mmHg ABG HCO3 (19-24) mmol/L ABG O2 Saturation (90-95) % Sodium (136-145) mmol/L Potassium (3.5-5.1) mmol/L Chloride (98-107) mmol/L Carbon Dioxide (21-32) mmol/L Anion Gap (3-11) BUN (6-23) mg/dl Creatinine (0.6-1.2) mg/dl BUN/Creatinine Ratio (10-20) Glucose (70-99(Fasting)) mg/dl Lactate (0.4-2.0) mmol/L Calcium (8.6-10.3) mg/dl Magnesium (1.7-2.4) mg/dl Total Bilirubin (0.2-1.0) mg/dl Troponin I High Sens (0-14) pg/ml Total Protein (6.0-8.3) gm/dl Albumin (3.4-5.0) gm/dl Procalcitonin (0-0.5) ng/ml TSH (0.300-4.500) uIu/ml Free T4 (0.61-1.60) ng/dl Urine Appearance Cloudy A (Clear) Urine Protein 1+ H (Negative) Urine Glucose (UA) Trace H (Negative) Urine Ketones Trace H (Negative) Urine Nitrite Positive A (Negative) Urine Bilirubin 2+ H (Negative) Ur Leukocyte Esterase 1+ H (Negative) Urine WBC (Auto) 10-30 H (0-5) /hpf U Hyaline Cast (Auto) 10-30 H (0-5) /lpf U Epithel Cells (Auto) >30 H (0-5) /lpf Urine Osmolality 376 L (500-800) mOsm/kg Diagnostic Findings Chest X-Ray 01/16/23 14:02 SINGLE VIEW CHEST CLINICAL HISTORY: Sepsis. FINDINGS: An AP, portable, upright chest radiograph is compared to study dated 12/09/2022. The heart is mildly enlarged noting atherosclerotic calcification of the thoracic aorta. The pulmonary vasculature is noncongested. Nonspecific interstitial thickening is similar to previous. There is mild bibasilar scarring/atelectasis. The lungs and pleural spaces are otherwise clear. No pneumothorax is seen. The skeletal structures are osteopenic. The bony thorax is grossly intact. Cholecystectomy clips are noted in the right upper quadrant. IMPRESSION: No active disease in the chest. ACT 112: Negative or not required by law. Electronically signed by: Crispin Carmen M.D. 01/16/2023 2:14 PM Abdomen/Pelvis CT 01/16/23 15:47 CT SCAN OF THE ABDOMEN AND PELVIS WITHOUT IV CONTRAST CLINICAL HISTORY: Generalized abdominal pain. COMPARISON STUDY: Abdominal CT dated 12/14/2022. TECHNIQUE: CT scan of the abdomen and pelvis is performed from the lung bases to the proximal femora. Images are reviewed in the axial, sagittal, and coronal planes. IV contrast was not administered for this examination. Note that the examination was performed in significantly suboptimal fashion without oral and IV contrast. A dose lowering technique was utilized adhering to the principles of ALARA. CT DOSE: 499.98 mGy.cm FINDINGS: Lung bases: The heart is mildly enlarged and without pericardial effusion. The coronary arteries are densely calcified. The lung bases are clear noting bibasilar scarring/atelectasis. There is a small hiatal hernia. Liver: The unenhanced liver is normal in size, contour, and attenuation. There is no intrahepatic biliary ductal dilatation. Gallbladder: Surgically absent noting clips in the gallbladder fossa. Spleen: Normal in size and attenuation. Pancreas: The unenhanced pancreas is atrophic and grossly unremarkable. Adrenal glands: Unremarkable. Kidneys: The unenhanced kidneys demonstrate cortical atrophy and are without hydronephrosis. No renal calculi are identified. Renal sinus cysts are seen bilaterally. There is no evidence of contour deforming renal mass lesion. Abdominal vasculature: The abdominal aorta is normal in course and caliber. Bowel: There is diffuse colonic wall thickening and edema. This extends from the cecum to the rectum is consistent with a nonspecific proctocolitis. There is no pericolonic inflammation and fluid. No bowel obstruction is seen. There is colonic diverticulosis without CT evidence of acute diverticulitis. The appendix is not identified and reported surgically absent. Peritoneum: No intraperitoneal free air is identified. There is a small volume of abdominopelvic ascites. There is a small fat-containing umbilical hernia. Lymphadenopathy: None. Pelvic viscera: The bladder is partially decompressed and appears circumferentially thick walled. The uterus and adnexa are normal as visualized. Skeletal structures: The skeletal structures are heterogeneously osteopenic. The re is an acute to subacute superior endplate compression fracture of L1. This is new from 12/14/2022. There is only minimal loss of height. There is no significant retropulsion of fragments. Mild paravertebral edema is observed. Mild/moderate lumbosacral spondylosis is observed. No lytic or blastic lesions are seen. IMPRESSION: 1. There is a moderate to severe nonspecific proctocolitis, likely on an infectious or inflammatory basis. This extends from the cecum to the rectum. Clinical correlation will be required. 2. Small volume of abdominopelvic ascites. 3. Acute to subacute superior endplate compression fracture of L1. This is new from 12/14/2022. No significant retropulsion of fragments is seen. 4. Additional findings as above. ACT 112: Negative or not required by law. Electronically signed by: Crispin Carmen M.D. 01/16/2023 4:45 PM Medications Administered Discontinued Medications Hydrocortisone Sodium Succinate (Hydrocortisone Sod Succinate 100 Mg/2 Ml Vial) 100 mg IV NOW STA Stop: 01/16/23 17:39 Last Admin: 01/16/23 18:55 Dose: 100 mg Documented By: NRB Sodium Chloride (Nss) 1,000 mls @ 999 mls/hr IV .Q1H1M ONE Stop: 01/16/23 16:36 Last Infusion: 01/16/23 18:22 Dose: 0 mls/hr Documented By: Admin: 01/16/23 16:07 Dose: 999 mls/hr Documented By: MES Sodium Chloride (Nss) 1,000 mls @ 999 mls/hr IV .Q1H1M ONE Stop: 01/16/23 16:47 Last Infusion: 01/16/23 18:22 Dose: 0 mls/hr Documented By: Admin: 01/16/23 16:07 Dose: 999 mls/hr Documented By: WARNER Cefepime HCl (Maxipime) 2,000 mg in 20 mls @ 5 mls/min IV NOW STA; Protocol Stop: 01/16/23 15:50 Last Admin: 01/16/23 16:12 Dose: 5 mls/min Documented By: MES Sodium Chloride (Nss) 1,000 mls @ 999 mls/hr IV .Q1H1M ONE Stop: 01/16/23 18:02 Last Infusion: 01/16/23 20:51 Dose: 0 mls/hr Documented By: Admin: 01/16/23 18:52 Dose: 999 mls/hr Documented By: BRANDY Metronidazole (Flagyl) 500 mg in 100 mls @ 100 mls/hr IV NOW STA; Protocol Stop: 01/16/23 18:37 Last Infusion: 01/16/23 20:51 Dose: 0 mls/hr Documented By: Admin: 01/16/23 18:58 Dose: 100 mls/hr Documented By: BRANDY Phytonadione 10 mg/ Dextrose 51 mls @ 102 mls/hr IV ONE ONE Stop: 01/16/23 18:07 Last Infusion: 01/16/23 18:52 Dose: 0 mls/hr Documented By: Admin: 01/16/23 18:10 Dose: 102 mls/hr Documented By: BRANDY Ondansetron HCl (Ondansetron Inj 2 Mg/Ml 2 Ml Vial) 4 mg IV NOW STA Stop: 01/16/23 14:15 Last Admin: 01/16/23 14:18 Dose: 4 mg Documented By: CEK ECG Additional Comments: Atrial fibrillation with rapid ventricular response Left anterior fascicular block Marked ST abnormality, possible lateral subendocardial injury Abnormal ECG When compared with ECG of 14-DEC-2022 18:55, Significant changes have occurred Confirmed by Trever Bloom ([id number]) on 01/16/2023 3:00:51 PM Coding Level of Care Code 66461 CRITICAL CARE 1ST 30-74M Additional Critical Care Time Additional 30min Critical Care Time: Yes - 62279 Diagnoses Afib I48.91 Colitis K52.9 Coagulopathy D68.9 Closed L1 vertebral fracture S32.019A Septic shock A41.9; R65.21 GERD (gastroesophageal reflux disease) K21.9 Hypertension I10 Osteopenia M85.80 Additional Codes Critical Care Time - Additional 30min Critical Care Time: Yes - 06763 ([id number])
--- NOTE | 2023-01-16 20:09 | Billing Data ---
Date of Service January 16, 2023 Coding Level of Care Code 34833 CRITICAL CARE
--- NOTE | 2023-01-16 20:40 | Procedure Note ---
Procedure Note Date of Service January 16, 2023 Note INTERNAL JUGULAR CENTRAL LINE PROCEDURE NOTE: Procedure: Internal Jugular Central Line Placement Proceduralist: Kole JEAN ([facility]) Attending: Dr. Augustin Indication: Central Drug Administration, Poor Venous Access, Multiple Lab Draws Necessary, etc. Anesthesia: [x]Lidocaine 1% [x ]Consent was signed and placed on the chart prior to procedure as delegated to me by Dr. Augustin. Indication, risks, and benefits were explained at length. A time-out was completed verifying correct patient, procedure, site, positioning, labs reviewed. Patients RIGHT Neck scouted with ultrasound after identifying adequate site, the site was cleansed and draped in the maximal sterile barrier fashion using Chloraprep and full body drape. The Internal Jugular Vein and Carotid Artery were identified using ultrasound. The superf icial tissue was anesthetized using 5 mL of 1% lidocaine without epinephrine under direct visualization with the ultrasound. After adequate anesthetization was achieved, the Internal Jugular vein was cannulated under direct ultrasound guidance using an introducer needle on a syringe. Good venous blood return was maintained prior to removal of syringe from introducer needle. Using Seldinger Technique, a guide wire was advanced through the introducer needle without resistance. The introducer needle was removed and ultrasound images were obtained of the guide wire within the Internal Jugular Vein. A small incision was made in penetrating fashion at the guide wire insertion site utilizing an 11 blade scalpel. The dilator was advanced to the vessel without resistance. The dilator was exchanged for the triple lumen catheter which was advanced into the vessel without resistance. The guide wire was removed intact from the catheter without issue. Claves were placed on each catheter tip with confirmation of good blood flow from each lumen. Each port was easily flushed with sterile saline. The catheter was placed at 17 cm and sutured in place. BioPatch was applied to the catheter and a sterile Tegaderm dressing was applied over the catheter with careful attention to sterility. Patient tolerated procedure well. No immediate complications were met. Post procedure x-ray was completed, placement noted to be slightly deep and no pneumothorax was noted- catheter will be removed 2-3 cm. Images obtained were not saved to the permanent record secondary to need of line to receive therapies/urgency Procedural Ultrasound Guidance: Procedure Date: Indication: Direct Visualization for Central Venous Access Proceduralist: Kole JEAN Attending: Dr. Augustin Artery AND Vein visualized: YES Compressible Vein: YES Guidewire or Short Catheter seen in vein prior to dilation: YES Images obtained were not saved to the permanent record secondary to need of line to receive therapies/urgency Coding CPT Codes Tubes, Drains, and Vasc Access - Tubes, Drains, and Vasc Access: [id number] Insertion Of Non-tunneled Catheter Age 7 Yrs> ([id number]) Tubes, Drains, and Vasc Access - Tubes, Drains, and Vasc Access: [id number] Ultrasound Guidance For Vascular ([id number]) [facility] Procedure Codes (Charges) Tubes, Drains, and Vasc Access Procedure 1: Tubes, Drains, and Vasc Access: [id number] Insertion Of Non-tunneled Catheter Age 7 Yrs> Procedure 2: Tubes, Drains, and Vasc Access: [id number] Ultrasound Guidance For Vascular
[2023-01-16 20:41] LABS: Albumin Level 2.1 gm/dl (3.4-5.0); BUN Creatinine Ratio 20.7 (10-20); Calcium 7.1 mg/dl (8.6-10.3); Creatinine Clr Calc Pharmacy 18.1 ml/min; Est GFR (African American) 22.3 ml/min; Est GFR (Non-African American) 19.2 ml/min; Phosphorus 4.9 mg/dl (2.5-4.9); Potassium 2.8 mmol/L (3.5-5.1)
[2023-01-16] MEDS ORDERED: ICU Protocol for HYPERglycemia SCH (22:57)
[2023-01-16] MEDS ORDERED: CARBOHYDRATES FOR HYPOGLYCEMIA PO PRN (22:57)
[2023-01-16] MEDS ORDERED: GLUCOSE 10 TAB/TUBE PO PRN (22:57)
[2023-01-16] MEDS ORDERED: ONDANSETRON INJ 2 MG/ML 2 ML VIAL IV PRN (22:57)
[2023-01-16] MEDS ORDERED: ACETAMINOPHEN 1000 MG/100 ML IV IV PRN (22:57)
[2023-01-16] MEDS ORDERED: GLUCAGON FOR INJ 1 MG VIAL SQ PRN (22:57)
[2023-01-16] MEDS ORDERED: GLUCOSE 40% GEL 15 GM TUBE PO PRN (22:57)
[2023-01-16] MEDS ORDERED: DEXTROSE 50% 50 ML SYRINGE IV PRN (22:57)
[2023-01-16] MEDS ORDERED: STAT IV STA (22:59)
[2023-01-16] MEDS: PLASMA-LYTE A 1,000 ML IV SCH (23:14)
[2023-01-16] MEDS: INSULIN ASPART PER UNIT CHARGE SC SCH (23:24)
[2023-01-16] MEDS: PANTOprazole 40 MG in SYRINGE 0 ML IV SCH (23:30)
[2023-01-16 23:36] LABS: BUN Creatinine Ratio 19.3 (10-20); Calcium 7.3 mg/dl (8.6-10.3); Creatinine Clr Calc Pharmacy 13.8 ml/min; Est GFR (African American) 18.6 ml/min; Est GFR (Non-African American) 16.1 ml/min; Phosphorus 5.9 mg/dl (2.5-4.9); Potassium 3.3 mmol/L (3.5-5.1)
[2023-01-16] MEDS: POTASSIUM CHLORIDE / WTR 10 MEQ/100 ML PLCT IV SCH (23:40)
[2023-01-16] MEDS: CALCIUM GLUCONATE 10% 1,000 MG in SODIUM CHLOR 0.9% MINI-B 50 ML IV SCH (23:46)
[2023-01-16 23:50] LABS: Troponin I High Sensitivity 208.9 pg/ml (0-14)
[2023-01-16] MEDS ORDERED: PLASMA-LYTE A 500 ML IV ONE (23:50)
[2023-01-17] MEDS: CALCIUM GLUCONATE 10% 1,000 MG in SODIUM CHLOR 0.9% MINI-B 50 ML IV SCH (00:01)
[2023-01-17] MEDS ORDERED: METOPROLOL TARTRATE 1 MG/ML VIAL IV STA (00:14)
[2023-01-17] MEDS: POTASSIUM CHLORIDE / WTR 10 MEQ/100 ML PLCT IV SCH (00:40)
[2023-01-17] MEDS: HYDROCORTISONE SOD 100 MG in SYRINGE 0 ML IV SCH ×2 (01:42→10:26)
[2023-01-17] MEDS: metroNIDAZOLE 500 MG/100 ML BAG IV SCH ×2 (02:17→10:19)
[2023-01-17] MEDS ORDERED: STAT IV Infusion **Titration per Protocol STA ×5 (03:03→17:57)
[2023-01-17] MEDS ORDERED: NOREPINEPHRINE/D5W 4 MG/250 ML IV ONE (03:05)
[2023-01-17] MEDS: NOREPINEPHRINE/D5W 4 MG/250 ML PLCT IV SCH ×9 (03:16→16:36)
[2023-01-17] MEDS: CEFEPIME 1,000 MG in SYRINGE 0 ML IV SCH ×2 (03:35→16:10)
[2023-01-17] MEDS: PLASMA-LYTE A 1,000 ML IV SCH (03:57)
[2023-01-17] MEDS ORDERED: VANCOMYCIN HCL 125 MG/2.5ML SOLN PO SCH (04:00)
[2023-01-17] MEDS ORDERED: CHERRY SYRUP 5 ML UDP PO SCH (04:00)
[2023-01-17] MEDS ORDERED: SODIUM BICARB 8.4% INJ 50 MEQ/50 ML SYR IV ONE (04:44)
[2023-01-17] MEDS ORDERED: SODIUM BICARB 8.4% INJ 50 MEQ/50 ML SYR IV STA ×3 (04:46→06:05)
[2023-01-17 04:50] LABS: Albumin Globulin Ratio 1.7 (0.9-2); Albumin Level 1.9 gm/dl (3.4-5.0); BUN Creatinine Ratio 18.9 (10-20); Bilirubin,Total 1.1 mg/dl (0.2-1.0); Calcium 7.4 mg/dl (8.6-10.3); Creatinine Clr Calc Pharmacy 13.3 ml/min; Est GFR (African American) 17.7 ml/min; Est GFR (Non-African American) 15.3 ml/min; Globulin 1.1 gm/dl (2.5-4.0); Magnesium 2.4 mg/dl (1.7-2.4); Potassium 4.2 mmol/L (3.5-5.1)
[2023-01-17 04:58] LABS: Hematocrit (blood only) 46.7 % (37.0-47.0); Hemoglobin 16.1 g/dl (12.0-16.0); Mean Corpuscular Hemoglobin 29.6 pg (25.0-34.0); Mean Corpuscular Hgb Conc 34.5 g/dL (32.0-36.0); Mean Corpuscular Volume 85.8 fL (80.0-100.0); Nucleated RBC # (auto) 0.02 K/uL (0.00-0.12); Nucleated RBC % (auto) 0.1 %; Platelet Count 155 K/uL (130-400); RDW Coefficient of Variation 16.9 % (11.5-14.5); RDW Standard Deviation 51.1 fL (36.4-46.3); Red Blood Count 5.44 M/uL (4.20-5.40); White Blood Count 35.36 K/ul (4.8-10.8)
[2023-01-17 04:59] LABS: Basophils # (auto) 0.13 K/uL (0.00-0.20); Basophils % (auto) 0.4 %; Immature Granulocytes # (auto) 1.07 K/uL (0.01-0.20); Lymphocytes # (auto) 2.12 K/uL (1.20-3.40); Monocytes # (auto) 1.45 K/uL (0.11-0.59); Monocytes % (auto) 4.1 %; Neutrophils # (auto) 30.59 K/uL (1.40-6.50); Neutrophils % (auto) 86.5 %
[2023-01-17 05:14] LABS: INR 2.4 (0.9-1.1); Partial Thromboplastin Ratio 1.8; Prothrombin Time 24.6 Seconds (9.0-12.0)
[2023-01-17 05:17] LABS: Cdiff Toxin B Gene (2yr or >) Positive Cdiff Gene (Neg)
[2023-01-17 05:18] LABS: Cdiff Antigen Positive
[2023-01-17 05:20] LABS: Cdiff Toxin A+B Positive Cdiff Toxin (Negative)
[2023-01-17] MEDS ORDERED: FIDAXOMICIN 200 MG TAB PO SCH (05:25)
[2023-01-17] MEDS ORDERED: STAT IV STA (05:27)
[2023-01-17] MEDS: VASOPRESSIN 20 UNITS in 0.9 % SODIUM CHLORIDE 100 ML IV SCH ×2 (05:27→12:20)
--- NOTE | 2023-01-17 05:28 | Procedure Note ---
Procedure Note Date of Service January 17, 2023 Note ARTERIAL LINE PROCEDURE NOTE: Procedure: Arterial Line Placement Proceduralist: Kole JEAN ([facility]) Attending: Dr. Augustin Indication: Monitoring on Pressors Anesthesia: [x]Lidocaine 1% Verbal consent was obtained from patient as procedure urgent with increasing vasopressor requirements A time-out was completed verifying correct patient, procedure, site, positioning, and implant(s) or special equipment if applicable. Allens test was performed to ensure adequate perfusion. Patients LEFT wrist was prepped and draped in the usual sterile fashion. Ultrasound guidance was used to court advocate the artery and then directly aid needle placement. A 20g Arrow arterial line was introduced into the LEFT RADIAL artery. Catheter was threaded, and the needle was removed with appropriate blood return. Good waveform was observed. The patient tolerated the procedure well. Blood Loss: Minimal Complications: None Procedural Ultrasound Guidance: Procedure Date: Indication: Direct Visualization for placement of arterial line Proceduralist: Kole JEAN ([facility]) Attending: Dr. Augustin Artery Identified: YES Line confirmed in Artery with ultrasound: Complications: NONE Patient tolerated procedure: WELL Coding CPT Codes Tubes, Drains, and Vasc Access - Tubes, Drains, and Vasc Access: [id number] Arterial Cath/Cannulation Sampling/Monitoring/Transfusion ([id number]) Tubes, Drains, and Vasc Access - Tubes, Drains, and Vasc Access: [id number] Ultrasound Guidance For Vascular ([id number]) [facility] [place] Codes (Charges) Tubes, Drains, and Vasc Access Procedure 1: Tubes, Drains, and Vasc Access: [id number] Arterial Cath/Cannulation Sampling/Monitoring/Transfusion Procedure 2: Tubes, Drains, and Vasc Access: [id number] Ultrasound Guidance For Vascular
[2023-01-17 05:29] LABS: Partial Thromboplastin Time 51.5 Seconds (21.0-31.0)
[2023-01-17 05:40] LABS: iSTAT Art Bld Gas pCO2 Correct 12 mmHg (35-46); iSTAT Art Bld Gas pH Corrected 7.398 (7.35-7.45); iSTAT Arterial Blood Gas HCO3 8 meg/L (19-24); iSTAT Arterial Blood Gas pCO2 13 mmHg (35-46); iSTAT Arterial Blood Gas pH 7.39 (7.35-7.45); iSTAT Arterial Blood Gas pO2 106 mmHg (80-95); iSTAT Arterial Blood Gas pO2 C 102; iSTAT Carbon Dioxide 8 mmol/L (24-31); iSTAT Hematocrit 45 % (37-47); iSTAT Hemoglobin 15.3 g/dl (12.0-16.0); iSTAT Potassium 3.8 mmol/L (3.3-5.0); iSTAT Site Art Line; iSTAT Sodium 130 mmol/L (135-144)
[2023-01-17 05:40] LABS: iSTAT Art Bld Gas pCO2 Correct 12 mmHg (35-46); iSTAT Art Bld Gas pH Corrected 7.428 (7.35-7.45); iSTAT Arterial Blood Gas HCO3 8 meg/L (19-24); iSTAT Arterial Blood Gas pCO2 13 mmHg (35-46); iSTAT Arterial Blood Gas pH 7.42 (7.35-7.45); iSTAT Arterial Blood Gas pO2 110 mmHg (80-95); iSTAT Arterial Blood Gas pO2 C 107; iSTAT Carbon Dioxide 9 mmol/L (24-31); iSTAT Hematocrit 45 % (37-47); iSTAT Hemoglobin 15.3 g/dl (12.0-16.0); iSTAT Potassium 3.9 mmol/L (3.3-5.0); iSTAT Site Art Line; iSTAT Sodium 131 mmol/L (135-144)
[2023-01-17] MEDS ORDERED: CEFEPIME 2,000 MG in SYRINGE 0 ML IV SCH (06:00)
[2023-01-17] MEDS ORDERED: METOPROLOL TARTRATE 1 MG/ML VIAL IV SCH (06:00)
--- NOTE | 2023-01-17 06:02 | Communication Note ---
Date of Service: January 17, 2023 Patient with increasing vasopressor requirements was empirically started on Vancomycin while C. Diff was pending. Her skin is becoming more clammy as well. Noted increase in swelling and edema to her right leg than previous evaluation- pending ultrasound. Overall the patient is now with severe septic shock with multiorgan failure to include, heart, kidneys, liver with coagulopathy. Placed arterial line in her left wrist and added on Vasopressin to which she is responding to. She is fully compensating for her metabolic acidosis but does appear to be tiring- will provide HCO3 infusion and pushes to assist with correction. She was started on Dificid. Will also have surgery evaluate the patient- although she is currently very high risk for surgical evolution let alone anesthesia. Discussed with her Son Livan on severity of her illness and increasing hemodynamic support and with likely need in the future for possible intubation as well as renal support if she would be a candidate. Family is on their way into spend time with her. If she has a clot in her system and already with coagulopathy, she may also need IVC filter. Kole JEAN ([facility]
[2023-01-17 06:03] LABS: iSTAT Arterial Blood Gas HCO3 10 meg/L (19-24); iSTAT Arterial Blood Gas pCO2 15 mmHg (35-46); iSTAT Arterial Blood Gas pH 7.44 (7.35-7.45); iSTAT Arterial Blood Gas pO2 101 mmHg (80-95); iSTAT Carbon Dioxide 11 mmol/L (24-31); iSTAT Hematocrit 43 % (37-47); iSTAT Hemoglobin 14.6 g/dl (12.0-16.0); iSTAT Potassium 3.6 mmol/L (3.3-5.0); iSTAT Sodium 133 mmol/L (135-144)
[2023-01-17] MEDS: SODIUM BICARBONATE 8.4% 150 MEQ in DEXTROSE 5% 1,000 ML IV SCH ×2 (06:13→14:07)
[2023-01-17] MEDS ORDERED: RAPID SEQUENCE INDUCTION BAG ONE (06:16)
[2023-01-17] MEDS ORDERED: MIDAZOLAM HCL 1 MG/ML 2ML VIAL IV STA (06:53)
[2023-01-17] MEDS ORDERED: fentaNYL BOLUS from BAG IV PRN (06:53)
[2023-01-17] MEDS ORDERED: AMIODARONE / D5W 150 MG/100 ML BAG IV STA (06:57)
[2023-01-17] MEDS ORDERED: 0.2 MICRON FILTER SET 1 EACH IV ONE (06:57)
[2023-01-17] MEDS ORDERED: AMIODARONE / D5W 360 MG/200 ML BAG IV ONE (06:57)
[2023-01-17] MEDS ORDERED: fentaNYL citrate 2,500 MCG/250 ML BAG IV SCH (07:00)
[2023-01-17] MEDS ORDERED: ESMOLOL / NSS 2,500 MG/250 ML BAG IV SCH (07:15)
--- NOTE | 2023-01-17 07:16 | Critical Care Progress Note ---
Date of Service January 17, 2023 Assessment & Plan (1) Afib: (2) Colitis: (3) Coagulopathy: (4) Closed L1 vertebral fracture: (5) Septic shock: (6) GERD (gastroesophageal reflux disease): (7) Hypertension: (8) Osteopenia: Plan Reason Critically Ill: 82 YOF admitted with severe sepsis secondary to fulminant colitis: C. difficile positive with a history of ulcerative colitis and large stool output. Neuro - No acute needs Analgesia: Fentanyl infusion Sedation: Versed intermittent boluses CAM ICU: NEGATIVE prior to intubation Cardiac - Afib/flutter, Shock, Elevated HsCTNI - Shock multifactorial to include septic with source being GI as well as hypovolemic Atrial fibrillation: Paroxysmal related to critical illness - Received amiodarone bolus and on infusion: Conversion to normal sinus rhythm -Received crystalloid infusion currently on vasopressin and norepinephrine in addition to bicarbonate infusion -Initially ordered esmolol given rate control and normal sinus rhythm hold esmolol at this time - HsCTNI likely demand type II as she is without STEMI on ECG -Echo completed Respiratory - Respiratory failure secondary to metabolic demand -Wean FiO2 as tolerated to less than 60% O2 sats greater than 94% GI -fulminant colitis -History of ulcerative colitis, C. difficile toxin positive -Sepsis with hypotension, lactate initially improving now elevating greater than 5; white blood cell count greater than 35 and worsening clinical status -Stat surgery consult: D/W at 0715, currently in surgery with critically ill patient and additional evaluations. Will investigate possibility of transfer to [facility] for timely surgery and expanded blood bank capabilities given limited platelets from blood bank. - Continue with cefepime and flagyl, Dificid, hydrocortisone 100 mg every 8 hours RENAL/LYTES - ARF, multiple electrolyte abnormalities, metabolic acidosis, - ARF per KDIGO- has not made much urine following initial volume resuscitation- likely pre-renal secondary to hypovolemia and septic shock - Maintain MAPS>65 achieve UO - High gap metabolic Acidosis secondary to sepsis and renal dysfunction: Lactic acid -Discussed possibility of needing hemodialysis, emphasized we do not have the ability to provide CVVH -No need for volume control or electrolyte control at this time check BMP every 6 - Hold ARB/HCTZ - No acute needs ENDO - Abnormal TSH and T4 - Elevated TSH and T4- previous TSH 2.3 on 12/14/22- current levels likely reflecting acute illness and stress HEME - Right lower extremity DVT: Awaiting formal radiology read unclear if this is acute versus chronic Probable DIC: Supratherapeutic INR and elevated PTT without medications -Checking fibrinogen replete products as necessary ID - Colitis/GI infection septic shock -Severe sepsis with multisystem organ failure - Continue with stress dose steroids LINES/IV ACCESS - PIV, Marx, CVL, arterial line DVT PROPHYLAXIS - SCDS CODE STATUS: DO NOT RESUSCITATE in event of cardiac arrest DISPO: ICU overnight Extensive discussion with , daughter, 2 sons at bedside. Patient meeting criteria for emergent total colectomy secondary to septic shock multisystem organ failure from C. difficile. Surgery currently operating on critically ill patient and we have blood bank limitations in terms of platelet availability. Discussed with family option of transfer to [facility] for operative evaluation and expanded resources. Also discussed prognosis and tr ajectory if patient required dialysis, ileostomy, would require course in rehab but does not preclude return to independent living. Family prefers to stay at this institution knowing the above limitations. Emphasized patient is at risk for adverse outcome given multiple high risk characteristics i.e. age, baseline frailty, comorbidities, DVT likely entering disseminated intravascular coagulation. All in agreement that patient would not heroic efforts undertaken in event of cardiac arrest and I have subsequently updated her CODE STATUS. Informed general surgery of the the family's decision. Admission and Anticipated Discharge Date Admission Date: January 16, 2023 Supervising Physician Co-Signing Physician Notes I have personally spent 85 minutes of critical care time in the direct management of this patient. This is a life/limb threatening event. This includes time spent evaluating patient, direct bedside care, chart review, placing orders, interpretation of diagnostic studies, discussion with consultants, patient, and family members, as well as other required patient management activities. This time is exclusive of all separately billable procedures, and separate from and in addition to any other critical care service time. Subjective Patient's clinical condition continued to deteriorate I was present during the intubation. Patient was alert and able to answer questions prior to intubation. Physical Exam Physical Exam: General: Alert. In obvious extremis Skin: Cool and mottled, Head: Atraumatic Ears, nose, mouth and throat: airway patent Cardiovascular: Prolonged capillary refill Respiratory: Tachypnea Gastrointestinal: Tenderness with palpation Musculoskeletal: No deformity Results & Data Results & Data Vital Signs (Past 12 Hours) Vital Signs Temp Pulse Pulse Resp BP BP Pulse Ox 1014/23 06:53 161 H 30 H 95 01/17/23 05:58 127 H 93/65 L 01/17/23 04:00 127 H 29 H 95 01/17/23 03:50 127 H 31 H 100 01/17/23 03:46 99 01/17/23 03:40 133 H 46 H 100 01/17/23 03:40 93/65 L 01/17/23 03:30 128 H 35 H 95 01/17/23 03:20 130 H 36 H 99 01/17/23 03:16 129 H 20 90 01/17/23 03:16 98/55 L 01/17/23 03:10 124 H 33 H 97 01/17/23 03:01 83/66 L 01/17/23 03:01 130 H 23 95 01/17/23 03:00 128 H 32 H 96 01/17/23 02:50 132 H 23 100 01/17/23 02:40 127 H 28 H 100 01/17/23 02:35 139 H 24 91 01/17/23 02:30 124 H 24 95 01/17/23 02:20 132 H 31 H 98 01/17/23 02:10 123 H 22 98 01/17/23 02:00 127 H 30 H 100 01/17/23 02:00 105/72 01/17/23 01:50 122 H 9 L 95 01/17/23 01:40 124 H 27 H 98 01/17/23 01:39 122 H 31 H 99 01/17/23 01:39 99/67 L 01/17/23 01:38 130 H 31 H 98 01/17/23 01:30 119 H 19 79 L 01/17/23 01:29 96/68 L 01/17/23 01:29 128 H 25 H 01/17/23 01:20 124 H 17 87 L 01/17/23 01:17 91/74 L 01/17/23 01:17 113 H 30 H 01/17/23 01:10 131 H 25 H 99 01/17/23 01:02 75/64 L 01/17/23 01:02 130 H 28 H 99 01/17/23 01:00 130 H 29 H 90 01/17/23 00:50 115 H 26 H 94 01/17/23 00:40 169 H 31 H 96 01/17/23 00:33 92/68 L 01/17/23 00:33 152 H 29 H 99 01/17/23 00:30 154 H 31 H 100 01/17/23 00:20 152 H 25 H 99 01/17/23 02:00 36.2 C L 01/17/23 00:45 135 H 92/68 L 01/17/23 00:36 151 H 137/100 01/17/23 00:10 151 H 26 H 99 01/17/23 00:01 149 H 26 H 99 01/17/23 00:01 137/100 01/17/23 00:00 141 H 25 H 99 01/16/23 23:56 136/95 01/16/23 23:56 142 H 26 H 98 01/16/23 23:50 140 H 28 H 98 01/16/23 23:40 148 H 18 99 01/16/23 23:30 149 H 28 H 99 01/16/23 23:20 156 H 40 H 99 01/16/23 23:10 150 H 27 H 100 01/16/23 23:01 96/75 L 01/16/23 23:01 162 H 31 H 99 01/16/23 23:00 160 H 25 H 99 01/17/23 00:00 144 H 01/16/23 21:17 36 C L 160 H 20 108/58 L 99 01/16/23 20:51 01/16/23 20:30 160 H 24 139/109 H 98 01/16/23 20:00 143 H 27 H 175/148 H 01/16/23 19:31 160 H 25 H 110/93 98 O2 Del Method FiO2 01/17/23 06:53 70 01/17/23 05:58 01/17/23 04:00 01/17/23 03:50 01/17/23 03:46 01/17/23 03:40 01/17/23 03:40 01/17/23 03:30 01/17/23 03:20 01/17/23 03:16 01/17/23 03:16 01/17/23 03:10 01/17/23 03:01 01/17/23 03:01 01/17/23 03:00 01/17/23 02:50 01/17/23 02:40 01/17/23 02:35 01/17/23 02:30 01/17/23 02:20 01/17/23 02:10 01/17/23 02:00 01/17/23 02:00 01/17/23 01:50 01/17/23 01:40 01/17/23 01:39 01/17/23 01:39 01/17/23 01:38 01/17/23 01:30 01/17/23 01:29 01/17/23 01:29 01/17/23 01:20 01/17/23 01:17 01/17/23 01:17 01/17/23 01:10 01/17/23 01:02 01/17/23 01:02 01/17/23 01:00 01/17/23 00:50 01/17/23 00:40 01/17/23 00:33 01/17/23 00:33 01/17/23 00:30 01/17/23 00:20 01/17/23 02:00 01/17/23 00:45 01/17/23 00:36 01/17/23 00:10 01/17/23 00:01 01/17/23 00:01 01/17/23 00:00 01/16/23 23:56 01/16/23 23:56 01/16/23 23:50 01/16/23 23:40 01/16/23 23:30 01/16/23 23:20 01/16/23 23:10 01/16/23 23:01 01/16/23 23:01 01/16/23 23:00 01/17/23 00:00 01/16/23 21:17 Room Air 01/16/23 20:51 Room Air 01/16/23 20:30 01/16/23 20:00 01/16/23 19:31 Critical Care Results & Data Vital Signs (Past 12 Hours) Vital Signs Temp Pulse Pulse Resp BP BP Pulse Ox 01/17/23 06:53 161 H 30 H 95 01/17/23 05:58 127 H 93/65 L 01/17/23 04:00 127 H 29 H 95 01/17/23 03:50 127 H 31 H 100 01/17/23 03:46 99 01/17/23 03:40 133 H 46 H 100 01/17/23 03:40 93/65 L 01/17/23 03:30 128 H 35 H 95 01/17/23 03:20 130 H 36 H 99 01/17/23 03:16 129 H 20 90 01/17/23 03:16 98/55 L 01/17/23 03:10 124 H 33 H 97 01/17/23 03:01 83/66 L 01/17/23 03:01 130 H 23 95 01/17/23 03:00 128 H 32 H 96 01/17/23 02:50 132 H 23 100 01/17/23 02:40 127 H 28 H 100 01/17/23 02:35 139 H 24 91 01/17/23 02:30 124 H 24 95 01/17/23 02:20 132 H 31 H 98 01/17/23 02:10 123 H 22 98 01/17/23 02:00 127 H 30 H 100 01/17/23 02:00 105/72 01/17/23 01:50 122 H 9 L 95 01/17/23 01:40 124 H 27 H 98 01/17/23 01:39 122 H 31 H 99 01/17/23 01:39 99/67 L 01/17/23 01:38 130 H 31 H 98 01/17/23 01:30 119 H 19 79 L 01/17/23 01:29 96/68 L 01/17/23 01:29 128 H 25 H 01/17/23 01:20 124 H 17 87 L 01/17/23 01:17 91/74 L 01/17/23 01:17 113 H 30 H 01/17/23 01:10 131 H 25 H 99 01/17/23 01:02 75/64 L 01/17/23 01:02 130 H 28 H 99 01/17/23 01:00 130 H 29 H 90 01/17/23 00:50 115 H 26 H 94 01/17/23 00:40 169 H 31 H 96 01/17/23 00:33 92/68 L 01/17/23 00:33 152 H 29 H 99 01/17/23 00:30 154 H 31 H 100 01/17/23 00:20 152 H 25 H 99 01/17/23 02:00 36.2 C L 01/17/23 00:45 135 H 92/68 L 01/17/23 00:36 151 H 137/100 01/17/23 00:10 151 H 26 H 99 01/17/23 00:01 149 H 26 H 99 01/17/23 00:01 137/100 01/17/23 00:00 141 H 25 H 99 01/16/23 23:56 136/95 01/16/23 23:56 142 H 26 H 98 01/16/23 23:50 140 H 28 H 98 01/16/23 23:40 148 H 18 99 01/16/23 23:30 149 H 28 H 99 01/16/23 23:20 156 H 40 H 99 01/16/23 23:10 150 H 27 H 100 01/16/23 23:01 96/75 L 01/16/23 23:01 162 H 31 H 99 01/16/23 23:00 160 H 25 H 99 01/17/23 00:00 144 H 01/16/23 21:17 36 C L 160 H 20 108/58 L 99 01/16/23 20:51 01/16/23 20:30 160 H 24 139/109 H 98 O2 Del Method FiO2 01/17/23 06:53 70 01/17/23 05:58 01/17/23 04:00 01/17/23 03:50 01/17/23 03:46 01/17/23 03:40 01/17/23 03:40 01/17/23 03:30 01/17/23 03:20 01/17/23 03:16 01/17/23 03:16 01/17/23 03:10 01/17/23 03:01 01/17/23 03:01 01/17/23 03:00 01/17/23 02:50 01/17/23 02:40 01/17/23 02:35 01/17/23 02:30 01/17/23 02:20 01/17/23 02:10 01/17/23 02:00 01/17/23 02:00 01/17/23 01:50 01/17/23 01:40 01/17/23 01:39 01/17/23 01:39 01/17/23 01:38 01/17/23 01:30 01/17/23 01:29 01/17/23 01:29 01/17/23 01:20 01/17/23 01:17 01/17/23 01:17 01/17/23 01:10 01/17/23 01:02 01/17/23 01:02 01/17/23 01:00 01/17/23 00:50 01/17/23 00:40 01/17/23 00:33 01/17/23 00:33 01/17/23 00:30 01/17/23 00:20 01/17/23 02:00 01/17/23 00:45 01/17/23 00:36 01/17/23 00:10 01/17/23 00:01 01/17/23 00:01 01/17/23 00:00 01/16/23 23:56 01/16/23 23:56 01/16/23 23:50 01/16/23 23:40 01/16/23 23:30 01/16/23 23:20 01/16/23 23:10 01/16/23 23:01 01/16/23 23:01 01/16/23 23:00 01/17/23 00:00 01/16/23 21:17 Room Air 01/16/23 20:51 Room Air 01/16/23 20:30 Lab & Micro Results (Past 24 Hours) RBC 5.44 M/uL (4.20-5.40) H 01/17/23 WBC 35.36 K/ul (4.8-10.8) H* 01/17/23 Hgb 16.1 g/dl (12.0-16.0) H 01/17/23 Hct 46.7 % (37.0-47.0) 01/17/23 MCV 85.8 fL (80.0-100.0) 01/17/23 MCH 29.6 pg (25.0-34.0) 01/17/23 MCHC 34.5 g/dL (32.0-36.0) 01/17/23 RDW Standard Deviation 51.1 fL (36.4-46.3) H 01/17/23 RDW Coefficient of Variation 16.9 % (11.5-14.5) H 01/17/23 Plt Count 155 K/uL (130-400) 01/17/23 MPV 11.0 fL (9.4-12.4) 01/17/23 Nucleated Red Blood Cells % (auto) 0.1 % 01/17 Nucleated RBC Absolute Count (auto) 0.02 K/uL (0.00-0.12) 1 Neutrophils (%) (Auto) 86.5 % 01/17/23 Lymphocytes (%) (Auto) 6.0 % 01/17/23 Monocytes # (Auto) 1.45 K/uL (0.11-0.59) H 01/17/23 Eosinophils # (Auto) 0.00 K/uL (0.00-0.50) 01/17/23 Immature Granulocyte % (Auto) 3.0 % 01/17/23 Neutrophils # (Auto) 30.59 K/uL (1.40-6.50) H 01/17/23 Lymphocytes # (Auto) 2.12 K/uL (1.20-3.40) 01/17/23 Monocytes # (Auto) 1.45 K/uL (0.11-0.59) H 01/17/23 Eosinophils # (Auto) 0.00 K/uL (0.00-0.50) 01/17/23 Basophils # (Auto) 0.13 K/uL (0.00-0.20) 01/17/23 Immature Granulocyte # (Auto) 1.07 K/uL (0.01-0.20) H 01/17 Polychromasia 1+ 01/16/23 Echinocytes 2+ 01/16/23 Na 131 mmol/L (136-145) L 01/17/23 K 4.2 mmol/L (3.5-5.1) 01/17/23 Cl 102 mmol/L (98-107) 01/17/23 CO2 12 mmol/L (21-32) L 01/17/23 Anion Gap 17 (3-11) H 01/17/23 BUN 53 mg/dl (6-23) H 01/17/23 Creatinine 2.80 mg/dl (0.6-1.2) H 01/17/23 Estimated GFR ( Amer) 17.7 ml/min 01/17/23 Estimated GFR (Non-Af Amer) 15.3 ml/min 01/17/23 BUN/Creatinine Ratio 18.9 (10-20) 01/17/23 Glu 111 mg/dl (70-99(Fasting)) H 01/17/23 Ca 7.4 mg/dl (8.6-10.3) L 01/17/23 Phosphorus Level 5.9 mg/dl (2.5-4.9) H 01/16/23 Total Bilirubin 1.1 mg/dl (0.2-1.0) H 01/17/23 Direct Bilirubin 0.1 mg/dl (0-0.2) 01/16/23 AST 26 U/L (13-39) 01/17/23 ALT 22 U/L (7-52) 01/17/23 Alkaline Phosphatase 48 U/L (34-104) 01/17/23 TP 3.0 gm/dl (6.0-8.3) L 01/17/23 Albumin 1.9 gm/dl (3.4-5.0) L 01/17/23 Globulin 1.1 gm/dl (2.5-4.0) L 01/17/23 Albumin/Globulin Ratio 1.7 (0.9-2) 01/17/23 Mg 2.4 mg/dl (1.7-2.4) 01/17/23 04:10 Calcium Level 7.4 mg/dl (8.6-10.3) L 01/17/23 04:10 Prothromb Time International Ratio 2.4 (0.9-1.1) H 01/17/23 04 :10 Arterial Blood pH 7.43 (7.35-7.45) 01/16/23 16:09 Arterial Blood Partial Pressure CO2 20 mmHg (35-46) L 01/16/23 16:09 Arterial Blood Partial Pressure O2 96 mmHg (80-95) H 01/16/23 1 6:09 Arterial Blood HCO3 13 mmol/L (19-24) L 01/16/23 16:09 Arterial Blood Base Excess -8.7 mEq/L (-9-1.8) 01/16/23 16:09 Arterial Blood Oxygen Saturation 98.9 % (90-95) H 01/16/23 16:0 9 Blood Gas Oxygen Given ROOM AIR 01/16/23 16:09 Gaetano Test NA 01/17/23 05:24 Diagnostic Findings (Past 24 Hours) Chest X-Ray 01/16/23 14:02 SINGLE VIEW CHEST CLINICAL HISTORY: Sepsis. FINDINGS: An AP, portable, upright chest radiograph is compared to study dated 12/09/2022. The heart is mildly enlarged noting atherosclerotic calcification of the thoracic aorta. The pulmonary vasculature is noncongested. Nonspecific interstitial thickening is similar to previous. There is mild bibasilar scarring/atelectasis. The lungs and pleural spaces are otherwise clear. No pneumothorax is seen. The skeletal structures are osteopenic. The bony thorax is grossly intact. Cholecystectomy clips are noted in the right upper quadrant. IMPRESSION: No active disease in the chest. ACT 112: Negative or not required by law. Electronically signed by: Crispin Carmen M.D. 01/16/2023 2:14 PM Abdomen/Pelvis CT 01/16/23 15:47 CT SCAN OF THE ABDOMEN AND PELVIS WITHOUT IV CONTRAST CLINICAL HISTORY: Generalized abdominal pain. COMPARISON STUDY: Abdominal CT dated 12/14/2022. TECHNIQUE: CT scan of the abdomen and pelvis is performed from the lung bases to the proximal femora. Images are reviewed in the axial, sagittal, and coronal planes. IV contrast was not administered for this examination. Note that the examination was performed in significantly suboptimal fashion without oral and IV contrast. A dose lowering technique was utilized adhering to the principles of ALARA. CT DOSE: 499.98 mGy.cm FINDINGS: Lung bases: The heart is mildly enlarged and without pericardial effusion. The coronary arteries are densely calcified. The lung bases are clear noting bibasilar scarring/atelectasis. There is a small hiatal hernia. Liver: The unenhanced liver is normal in size, contour, and attenuation. There is no intrahepatic biliary ductal dilatation. Gallbladder: Surgically absent noting clips in the gallbladder fossa. Spleen: Normal in size and attenuation. Pancreas: The unenhanced pancreas is atrophic and grossly unremarkable. Adrenal glands: Unremarkable. Kidneys: The unenhanced kidneys demonstrate cortical atrophy and are without hydronephrosis. No renal calculi are identified. Renal sinus cysts are seen bilaterally. There is no evidence of contour deforming renal mass lesion. Abdominal vasculature: The abdominal aorta is normal in course and caliber. Bowel: There is diffuse colonic wall thickening and edema. This extends from the cecum to the rectum is consistent with a nonspecific proctocolitis. There is no pericolonic inflammation and fluid. No bowel obstruction is seen. There is colonic diverticulosis without CT evidence of acute diverticulitis. The appendix is not identified and reported surgically absent. Peritoneum: No intraperitoneal free air is identified. There is a small volume of abdominopelvic ascites. There is a small fat-containing umbilical hernia. Lymphadenopathy: None. Pelvic viscera: The bladder is partially decompressed and appears circumferentially thick walled. The uterus and adnexa are normal as visualized. Skeletal structures: The skeletal structures are heterogeneously osteopenic. There is an acute to subacute superior endplate compression fracture of L1. This is new from 12/14/2022. There is only minimal loss of height. There is no significant retropulsion of fragments. Mild paravertebral edema is observed. Mild/moderate lumbosacral spondylosis is observed. No lytic or blastic lesions are seen. IMPRESSION: 1. There is a moderate to severe nonspecific proctocolitis, likely on an infectious or inflammatory basis. This extends from the cecum to the rectum. Clinical correlation will be required. 2. Small volume of abdominopelvic ascites. 3. Acute to subacute superior endplate compression fracture of L1. This is new from 12/14/2022. No significant retropulsion of fragments is seen. 4. Additional findings as above. ACT 112: Negative or not required by law. Electronically signed by: Crispin Carmen M.D. 01/16/2023 4:45 PM Venous Doppler Study 01/17/23 05:09 Exam(s): US VENOUS RIGHT LOWER EXTREMITY EXAM: US Duplex Right Lower Extremity Veins CLINICAL HISTORY: Reason for exam: evaluate for DVT. TECHNIQUE: Real-time duplex ultrasound scan of the right lower extremity veins integrating B-mode two-dimensional vascular structure, Doppler spectral analysis, color flow Doppler imaging and compression. COMPARISON: No relevant prior studies available. FINDINGS: Deep veins: Occlusive thrombus within the right common femoral vein, 1 of the right superficial femoral veins, and right popliteal vein. 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 Superficial veins: Unremarkable. No thrombus in the visualized great saphenous vein. 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 IMPRESSION: 1. Occlusive thrombus within the right common femoral vein, 1 of the right superficial femoral veins, and right popliteal vein. 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 Consider follow-up imaging. 2. 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 Electronically signed by: Naveen Rodriguez MD 01/17/23 07:25 AM I & O Totals 24 Hours 01/16/23 01/17/23 01/18/23 06:59 06:59 06:59 Intake Total 5786.430 / 5786.430 115.079 / 115.079 Output Total 40 / 40 Balance 5746.430 / 5746.430 115.079 / 115.079 Cumulative 01/16/23 13:39 thru 01/17/23 08:01 Intake Total 5901.509 Output Total 40 Balance 5861.509 RT Ventilator Mngmt (Last Documented) Ventilator Ordered Settings Ventilator Support Mode Assist Control 01/17/23 06:53 Respiratory Rate 30 01/17/23 06:53 Ventilator Tidal Volume 320 01/17/23 06:53 Setting Minute Ventilation 13.2 01/17/23 06:53 Positive End Expiratory 5 01/17/23 06:53 Pressure Fraction of Inspired Oxygen 70 01/17/23 06:53 Ventilator - PT Measurements Respiratory Rate 30 Exhaled Tidal Volume 409 Minute Ventilation 13.2 Peak Inspiratory Airway 13 Pressure Plateau Pressure 12 Respiratory Cycle Inspiratory: 1:1.1 Expiratory Ratio Inspiratory Phase Time 1.0 End-Tidal CO2 15 Static Lung Compliance 58.43 Dynamic Lung Compliance 51.13 Normal Static Lung Compliance 49.00 Coding Level of Care Code 88049 CRITICAL CARE 1ST 30-74M Additional Critical Care Time Additional 30min Critical Care Time: Yes - 16059 Diagnoses Afib I48.91 Colitis K52.9 Coagulopathy D68.9 Closed L1 vertebral fracture S32.019A Septic shock A41.9; R65.21 GERD (gastroesophageal reflux disease) K21.9 Hypertension I10 Osteopenia M85.80 Additional Codes Critical Care Time - Additional 30min Critical Care Time: Yes - 23389 ([id number])
--- NOTE | 2023-01-17 07:16 | Procedure Note ---
Procedure Note Date of Service January 17, 2023 Note INTUBATION PROCEDURE NOTE: Proceduralist: Kole JEAN ([facility]) Attending: Dr. Charli Augustin was present for the entire procedure and sedation A time-out was completed verifying correct patient, procedure, site, positioning. Patient was evaluated and required intubation for severe septic shock impending respiratory failure. Sedative agent used: Etomidate 20mg IV Paralysis agent used: Rocuronium 40mg IV [x Emergent consent was implied given patients rapidly declining clinical status and need for airway protection. The patient was prepared in the appropriate fashion. Sedation was achieved utilizing Etomidate and Rocuronium, per Dr. Garcia direction for administration. The patient was easily ventilated using [id number] to achieve adequate oxygenation. GlideScope was advanced through the airway without incidence and vocal chords were visualized, a 7.5 ETT was then advanced with stylet and visualization of tube passing through vocal chords was seen. Endotracheal tube was placed u to 23 cm at the lip. The stylette was removed and balloon was inflated with 10mL of air. Appropriate Colorimetric change was appreciated. Bilateral breath sounds were heard without air sounds in the abdome n. Dr. Augustin was present for the entire procedure. Post Intubation Chest X-ray confirms appropriate placement without pneumothorax. Patient tolerated the procedure well and there were no immediate complications. Coding CPT Codes Resuscitation - Resuscitation: 20107 Endotracheal Intubation, emergency ([id number]) [facility] Procedure Codes (Charges) Resuscitation Resuscitation: 14167 Endotracheal Intubation, emergency
--- NOTE | 2023-01-17 07:26 | Ultrasound Report ---
Exam(s): US VENOUS RIGHT LOWER EXTREMITY EXAM: US Duplex Right Lower Extremity Veins CLINICAL HISTORY: Reason for exam: evaluate for DVT. TECHNIQUE: Real-time duplex ultrasound scan of the right lower extremity veins integrating B-mode two-dimensional vascular structure, Doppler spectral analysis, color flow Doppler imaging and compression. COMPARISON: No relevant prior studies available. FINDINGS: Deep veins: Occlusive thrombus within the right common femoral vein, 1 of the right superficial femoral veins, and right popliteal vein. 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 Superficial veins: Unremarkable. No thrombus in the visualized great saphenous vein. 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 IMPRESSION: 1. Occlusive thrombus within the right common femoral vein, 1 of the right superficial femoral veins, and right popliteal vein. 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 Consider follow-up imaging. 2. 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 Electronically signed by: Naveen Rodriguez MD 01/17/23 07:25 AM
[2023-01-17] MEDS ORDERED: Nursing to Pharmacy Communication SCH ×3 (08:00→09:00)
[2023-01-17] MEDS ORDERED: MIDAZOLAM HCL 1 MG/ML 2ML VIAL IV PRN (08:08)
[2023-01-17] MEDS: INSULIN ASPART PER UNIT CHARGE SC SCH (08:36)
--- NOTE | 2023-01-17 09:14 | Gastrointestinal Consultation ---
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 Toxic colitis could be due solely to UC, solely to c. diff or a combination of both. She is being treated with appropriate intervent ion for her colitis but I don't think she will survive without colectomy. Discussed with son who says family understands that and have decided against proceeding with colectomy at this time considering her current state of illness. There is nothing further I can offer from GI standpoint. History of Present Illness Reason for Consultation: colitis Attending Physician: Chase Ng MD History of Present Illness 82 year old woman in the ICU with septic shock and resultant organ failure likely from toxic colitis. Diagnosed with colitis last month felt to be UC. Improved briefly but started having diarrhea again. Unable to keep up with her nutrition, becoming more and more weak and presented to the hospital. Has had a rapidly deteriorating course over her hospitalization and now she is intubated and on pressor support. C. diff is positive. Allergies Allergy/AdvReac Type Severity Reaction Status Date / Time Penicillins Allergy Unknown UNKNOWN Verified 12/25/22 13:17 Home Medications Medication Instructions Recorded Confirmed Type vitamins A,C,[id number] 4,296 See Rx Instructions .Route .COMPLEX 10/18/21 12/25/22 History mcg-226 mg-90 mg capsule (PreserVision AREDS) calcium carbonate 600 mg calcium See Rx Instructions .Route .COMPLEX 12/09/22 12/25/22 History (1,500 mg) tablet (Calcium) cholecalciferol (vitamin D3) 25 See Rx Instructions .Route .COMPLEX 12/09/22 12/25/22 History mcg (1,000 unit) tablet (Vitamin D3) prednisone 5 mg tablet 5 mg .Route .COMPLEX 01/01/23 01/16/23 History amlodipine 5 mg tablet See Rx Instructions .Route .COMPLEX 01/16/23 History losartan 50 mg-hydrochlorothiazide See Rx Instructions .Route .COMPLEX 01/16/23 History 12.5 mg tablet mesalamine 1.2 gram tablet,delayed 4.8 g PO DAILY 01/16/23 01/16/23 History release (Lialda) potassium chloride 10 mEq See Rx Instructions .Route .COMPLEX 01/16/23 History capsule,extended release triamcinolone acetonide 0.1 % 1 applic topical BID PRN Other 01/16/23 01/16/23 History topical cream Patient History Medical History Afib Arthritis Colitis Diarrhea GERD (gastroesophageal reflux disease) Hypertension Hypokalemia Hyponatremia Osteopenia Surgical History H/O cataract extraction (2016) History of breast lump/mass excision (1987) Fibroid, 1987 S/P appendectomy S/P cholecystectomy (2009) S/P tonsillectomy Family History Mother Cardiac disorder Stroke Hypertension Myocardial infarction 80's Sister Cardiac disorder Stroke Hypertension Grandfather (Maternal) Diabetes Father No known health problems Denies family history of Ovarian cancer Prostate cancer Breast cancer Colorectal cancer Social History Smoking Status: Never smoker Second Hand Exposure: No; Do You Dip or Chew Tobacco: No; Hx Alcohol Use: No Hx Substance Use: No Preferred Language: Serbian Communication Ability: Effective Visual Impairment: No Limitations Hearing Ability: Normal Correctional Supervisor Lieutenant Required: No Beliefs That Will Affect Care: None marital status: Current Living Situation: Spouse 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 Feels Safe at Home: Yes Diet: regular Diet Comment: regular caffeine: Yes during the past year weight has: remained stable Dental Care, Regularly: Yes Physical Activity Frequency: Daily Physical Activity Frequency Comment: walking/ housework Seatbelt Use: always Sunscreen Use: Yes Assistive Devices: Cane and Wheelchair Review of Systems Review of Systems: Unobtainable due to cognitive status Physical Exam Physical Exam: Critically ill, intubated, I did not examine further Results & Data Vital Signs (Past 12 Hours) Vital Signs Temp Pulse Pulse Resp BP BP Pulse Ox 01/17/23 08:10 01/17/23 06:53 161 H 30 H 95 01/17/23 05:58 127 H 93/65 L 01/17/23 04:00 127 H 29 H 95 01/17/23 03:50 127 H 31 H 100 01/17/23 03:46 99 01/17/23 03:40 133 H 46 H 100 01/17/23 03:40 93/65 L 01/17/23 03:30 128 H 35 H 95 01/17/23 03:20 130 H 36 H 99 01/17/23 03:16 129 H 20 90 01/17/23 03:16 98/55 L 01/17/23 03:10 124 H 33 H 97 01/17/23 03:01 83/66 L 01/17/23 03:01 130 H 23 95 01/17/23 03:00 128 H 32 H 96 01/17/23 02:50 132 H 23 100 01/17/23 02:40 127 H 28 H 100 01/17/23 02:35 139 H 24 91 01/17/23 02:30 124 H 24 95 01/17/23 02:20 132 H 31 H 98 01/17/23 02:10 123 H 22 98 01/17/23 02:00 127 H 30 H 100 01/17/23 02:00 105/72 01/17/23 01:50 122 H 9 L 95 01/17/23 01:40 124 H 27 H 98 01/17/23 01:39 122 H 31 H 99 01/17/23 01:39 99/67 L 01/17/23 01:38 130 H 31 H 98 01/17/23 01:30 119 H 19 79 L 01/17/23 01:29 96/68 L 01/17/23 01:29 128 H 25 H 01/17/23 01:20 124 H 17 87 L 01/17/23 01:17 91/74 L 01/17/23 01:17 113 H 30 H 01/17/23 01:10 131 H 25 H 99 01/17/23 01:02 75/64 L 01/17/23 01:02 130 H 28 H 99 01/17/23 01:00 130 H 29 H 90 01/17/23 00:50 115 H 26 H 94 01/17/23 00:40 169 H 31 H 96 01/17/23 00:33 92/68 L 01/17/23 00:33 152 H 29 H 99 01/17/23 00:30 154 H 31 H 100 01/17/23 00:20 152 H 25 H 99 01/17/23 02:00 36.2 C L 01/17/23 00:45 135 H 92/68 L 01/17/23 00:36 151 H 137/100 01/17/23 00:10 151 H 26 H 99 01/17/23 00:01 149 H 26 H 99 01/17/23 00:01 137/100 01/17/23 00:00 141 H 25 H 99 01/16/23 23:56 136/95 01/16/23 23:56 142 H 26 H 98 01/16/23 23:50 140 H 28 H 98 01/16/23 23:40 148 H 18 99 01/16/23 23:30 149 H 28 H 99 01/16/23 23:20 156 H 40 H 99 01/16/23 23:10 150 H 27 H 100 01/16/23 23:01 96/75 L 01/16/23 23:01 162 H 31 H 99 01/16/23 23:00 160 H 25 H 99 01/17/23 00:00 144 H 01/16/23 21:17 36 C L 160 H 20 108/58 L 99 O2 Del Method FiO2 01/17/23 08:10 50 01/17/23 06:53 70 01/17/23 05:58 01/17/23 04:00 01/17/23 03:50 01/17/23 03:46 01/17/23 03:40 01/17/23 03:40 01/17/23 03:30 01/17/23 03:20 01/17/23 03:16 01/17/23 03:16 01/17/23 03:10 01/17/23 03:01 01/17/23 03:01 01/17/23 03:00 01/17/23 02:50 01/17/23 02:40 01/17/23 02:35 01/17/23 02:30 01/17/23 02:20 01/17/23 02:10 01/17/23 02:00 01/17/23 02:00 01/17/23 01:50 01/17/23 01:40 01/17/23 01:39 01/17/23 01:39 01/17/23 01:38 01/17/23 01:30 01/17/23 01:29 01/17/23 01:29 01/17/23 01:20 01/17/23 01:17 01/17/23 01:17 01/17/23 01:10 01/17/23 01:02 01/17/23 01:02 01/17/23 01:00 01/17/23 00:50 01/17/23 00:40 01/17/23 00:33 01/17/23 00:33 01/17/23 00:30 01/17/23 00:20 01/17/23 02:00 01/17/23 00:45 01/17/23 00:36 01/17/23 00:10 01/17/23 00:01 01/17/23 00:01 01/17/23 00:00 01/16/23 23:56 01/16/23 23:56 01/16/23 23:50 01/16/23 23:40 01/16/23 23:30 01/16/23 23:20 01/16/23 23:10 01/16/23 23:01 01/16/23 23:01 01/16/23 23:00 01/17/23 00:00 01/16/23 21:17 Room Air Laboratory Results 01/17/23 01/17/23 01/17/23 Range/Units 09:06 08:59 08:21 WBC (4.8-10.8) K/ul RBC (4.20-5.40) M/uL Hgb (12.0-16.0) g/dl POC Hgb (12.0-16.0) g/dl Hct (37.0-47.0) % POC Hct (37-47) % MCV (80.0-100.0) fL MCH (25.0-34.0) pg MCHC (32.0-36.0) g/dL RDW Std Deviation (36.4-46.3) fL RDW Coeff of Anant (11.5-14.5) % Plt Count (130-400) K/uL MPV (9.4-12.4) fL Immature Gran % (Auto) % Neut % (Auto) % Lymph % (Auto) % [place] % (Auto) % Eos % (Auto) % Baso % (Auto) % Neut # (Auto) (1.40-6.50) K/uL Lymph # (Auto) (1.20-3.40) K/uL [place] # (Auto) (0.11-0.59) K/uL Eos # (Auto) (0.00-0.50) K/uL Baso # (Auto) (0.00-0.20) K/uL Immature Gran # (Auto) (0.01-0.20) K/uL Absolute Nucleated RBC (0.00-0.12) K/uL Nucleated RBC % (auto) % Polychromasia Echinocytes PT (9.0-12.0) Seconds INR (0.9-1.1) APTT (21.0-31.0) Seconds PTT Ratio Fibrinogen Sample Site POC pH (7.35-7.45) POC pCO2 (35-46) mmHg POC pO2 (80-95) mmHg POC HCO3 (19-24) tahir/L POC Total CO2 (24-31) mmol/L POC Base Excess (-9-1.8) tahir/L ABG pH ABG pH (Temp Correct) (7.35-7.45) ABG pCO2 ABG pCO2 (Temp Corrct (35-46) mmHg ABG pO2 POC ABG pO2 at Pt Temp ABG HCO3 POC ABG O2 Sat (90-95) % ABG O2 Saturation ABG Base Excess Gaetano Test Barometric Pressure Oxygen Given O2 Delivery Device POC Sodium (135-144) mmol/L Sodium Pending (136-145) mmol/L POC Potassium (3.3-5.0) mmol/L Potassium Pending (3.5-5.1) mmol/L Chloride Pending (98-107) mmol/L Carbon Dioxide Pending (21-32) mmol/L Anion Gap Pending (3-11) BUN Pending (6-23) mg/dl Creatinine Pending (0.6-1.2) mg/dl Est Cr Clr Drug Dosing Pending ml/min Est GFR ( Amer) Pending ml/min Est GFR (Non-Af Amer) Pending ml/min BUN/Creatinine Ratio Pending (10-20) Glucose Pending (70-99(Fasting)) mg/dl POC Glucose (70-99) mg/dl POC Glucose (other) 231 H (70-99) mg/dl Estimat Average Glucose Hemoglobin A1c Osmolality (280-300) mOsm/kg Lactate Pending (0.4-2.0) mmol/L Calcium Pending (8.6-10.3) mg/dl Phosphorus (2.5-4.9) mg/dl Magnesium (1.7-2.4) mg/dl Total Bilirubin (0.2-1.0) mg/dl Direct Bilirubin (0-0.2) mg/dl AST (13-39) U/L ALT (7-52) U/L Alkaline Phosphatase (34-104) U/L Troponin I High Sens (0-14) pg/ml Total Protein (6.0-8.3) gm/dl Albumin (3.4-5.0) gm/dl Globulin (2.5-4.0) gm/dl Albumin/Globulin Ratio (0.9-2) Procalcitonin (0-0.5) ng/ml TSH (0.300-4.500) uIu/ml Free T4 (0.61-1.60) ng/dl Random Cortisol mcg/dl Urine Color Urine Appearance (Clear) Urine pH (4.5-7.5) Ur Specific [place] (1.000-1.030) Urine Protein (Negative) Urine Glucose (UA) (Negative) Urine Ketones (Negative) Urine Blood (Negative) Urine Nitrite (Negative) Urine Bilirubin (Negative) Urine Urobilinogen (Negative) Ur Leukocyte Esterase (Negative) Urine WBC (Auto) (0-5) /hpf Urine RBC (Auto) (0-4) /hpf U Hyaline Cast (Auto) (0-5) /lpf U Epithel Cells (Auto) (0-5) /lpf Urine Bacteria (Auto) (Negative) Urine Yeast Urine Osmolality (500-800) mOsm/kg Ur Random Sodium mmol/L Nasal Screen MRSA (PCR) (Negative) Stl C. diff Tox B Gene (Neg) Stl C.difficile Tox A&B (Negative) Blood Type Antibody Screen Antibody Identification Antibody ID Comment 01/17/23 01/17/23 01/17/23 Range/Units 07:15 07:15 07:15 WBC (4.8-10.8) K/ul RBC (4.20-5.40) M/uL Hgb (12.0-16.0) g/dl POC Hgb (12.0-16.0) g/dl Hct (37.0-47.0) % POC Hct (37-47) % MCV (80.0-100.0) fL MCH (25.0-34.0) pg MCHC (32.0-36.0) g/dL RDW Std Deviation (36.4-46.3) fL RDW Coeff of Anant (11.5-14.5) % Plt Count (130-400) K/uL MPV (9.4-12.4) fL Immature Gran % (Auto) % Neut % (Auto) % Lymph % (Auto) % [place] % (Auto) % Eos % (Auto) % Baso % (Auto) % Neut # (Auto) (1.40-6.50) K/uL Lymph # (Auto) (1.20-3.40) K/uL [place] # (Auto) (0.11-0.59) K/uL Eos # (Auto) (0.00-0.50) K/uL Baso # (Auto) (0.00-0.20) K/uL Immature Gran # (Auto) (0.01-0.20) K/uL Absolute Nucleated RBC (0.00-0.12) K/uL Nucleated RBC % (auto) % Polychromasia Echinocytes PT (9.0-12.0) Seconds INR (0.9-1.1) APTT (21.0-31.0) Seconds PTT Ratio Fibrinogen Cancelled Sample Site POC pH (7.35-7.45) POC pCO2 (35-46) mmHg POC pO2 (80-95) mmHg POC HCO3 (19-24) tahir/L POC Total CO2 (24-31) mmol/L POC Base Excess (-9-1.8) tahir/L ABG pH ABG pH (Temp Correct) (7.35-7.45) ABG pCO2 ABG pCO2 (Temp Corrct (35-46) mmHg ABG pO2 POC ABG pO2 at Pt Temp ABG HCO3 POC ABG O2 Sat (90-95) % ABG O2 Saturation ABG Base Excess Gaetano Test Barometric Pressure Oxygen Given O2 Delivery Device POC Sodium (135-144) mmol/L Sodium (136-145) mmol/L POC Potassium (3.3-5.0) mmol/L Potassium (3.5-5.1) mmol/L Chloride (98-107) mmol/L Carbon Dioxide (21-32) mmol/L Anion Gap (3-11) BUN (6-23) mg/dl Creatinine (0.6-1.2) mg/dl Est Cr Clr Drug Dosing ml/min Est GFR ( Amer) ml/min Est GFR (Non-Af Amer) ml/min BUN/Creatinine Ratio (10-20) Glucose (70-99(Fasting)) mg/dl POC Glucose (70-99) mg/dl POC Glucose (other) (70-99) mg/dl Estimat Average Glucose Hemoglobin A1c Osmolality (280-300) mOsm/kg Lactate 11.3 H* (0.4-2.0) mmol/L Calcium (8.6-10.3) mg/dl Phosphorus (2.5-4.9) mg/dl Magnesium (1.7-2.4) mg/dl Total Bilirubin (0.2-1.0) mg/dl Direct Bilirubin (0-0.2) mg/dl AST (13-39) U/L ALT (7-52) U/L Alkaline Phosphatase (34-104) U/L Troponin I High Sens 449.8 H* D (0-14) pg/ml Total Protein (6.0-8.3) gm/dl Albumin (3.4-5.0) gm/dl Globulin (2.5-4.0) gm/dl Albumin/Globulin Ratio (0.9-2) Procalcitonin (0-0.5) ng/ml TSH (0.300-4.500) uIu/ml Free T4 (0.61-1.60) ng/dl Random Cortisol mcg/dl Urine Color Urine Appearance (Clear) Urine pH (4.5-7.5) Ur Specific [place] (1.000-1.030) Urine Protein (Negative) Urine Glucose (UA) (Negative) Urine Ketones (Negative) Urine Blood (Negative) Urine Nitrite (Negative) Urine Bilirubin (Negative) Urine Urobilinogen (Negative) Ur Leukocyte Esterase (Negative) Urine WBC (Auto) (0-5) /hpf Urine RBC (Auto) (0-4) /hpf U Hyaline Cast (Auto) (0-5) /lpf U Epithel Cells (Auto) (0-5) /lpf Urine Bacteria (Auto) (Negative) Urine Yeast Urine Osmolality (500-800) mOsm/kg Ur Random Sodium mmol/L Nasal Screen MRSA (PCR) (Negative) Stl C. diff Tox B Gene (Neg) Stl C.difficile Tox A&B (Negative) Blood Type Antibody Screen Antibody Identification Antibody ID Comment 01/17/23 01/17/23 01/17/23 Range/Units 05:49 05:24 05:19 WBC (4.8-10.8) K/ul RBC (4.20-5.40) M/uL Hgb (12.0-16.0) g/dl POC Hgb 14.6 15.3 15.3 (12.0-16.0) g/dl Hct (37.0-47.0) % POC Hct 43 45 45 (37-47) % MCV (80.0-100.0) fL MCH (25.0-34.0) pg MCHC (32.0-36.0) g/dL RDW Std Deviation (36.4-46.3) fL RDW Coeff of Anant (11.5-14.5) % Plt Count (130-400) K/uL MPV (9.4-12.4) fL Immature Gran % (Auto) % Neut % (Auto) % Lymph % (Auto) % [place] % (Auto) % Eos % (Auto) % Baso % (Auto) % Neut # (Auto) (1.40-6.50) K/uL Lymph # (Auto) (1.20-3.40) K/uL [place] # (Auto) (0.11-0.59) K/uL Eos # (Auto) (0.00-0.50) K/uL Baso # (Auto) (0.00-0.20) K/uL Immature Gran # (Auto) (0.01-0.20) K/uL Absolute Nucleated RBC (0.00-0.12) K/uL Nucleated RBC % (auto) % Polychromasia Echinocytes PT (9.0-12.0) Seconds INR (0.9-1.1) APTT (21.0-31.0) Seconds PTT Ratio Fibrinogen Sample Site Art Line Art Line POC pH 7.44 7.39 7.42 (7.35-7.45) POC pCO2 15 L 13 L 13 L (35-46) mmHg POC pO2 101 H 106 H 110 H (80-95) mmHg POC HCO3 10 L 8 L 8 L (19-24) tahir/L POC Total CO2 11 L 8 L* 9 L* (24-31) mmol/L POC Base Excess -14.0 L -17.0 L -16.0 L (-9-1.8) tahir/L ABG pH ABG pH (Temp Correct) 7.398 7.428 (7.35-7.45) ABG pCO2 ABG pCO2 (Temp Corrct 12 L 12 L (35-46) mmHg ABG pO2 POC ABG pO2 at Pt Temp 102 107 ABG HCO3 POC ABG O2 Sat 98.0 H 98.0 H 99.0 H (90-95) % ABG O2 Saturation ABG Base Excess Gaetano Test NA NA Barometric Pressure Oxygen Given O2 Delivery Device Room Air Room Air POC Sodium 133 L 130 L 131 L (135-144) mmol/L Sodium (136-145) mmol/L POC Potassium 3.6 3.8 3.9 (3.3-5.0) mmol/L Potassium (3.5-5.1) mmol/L Chloride (98-107) mmol/L Carbon Dioxide (21-32) mmol/L Anion Gap (3-11) BUN (6-23) mg/dl Creatinine (0.6-1.2) mg/dl Est Cr Clr Drug Dosing ml/min Est GFR ( Amer) ml/min Est GFR (Non-Af Amer) ml/min BUN/Creatinine Ratio (10-20) Glucose (70-99(Fasting)) mg/dl POC Glucose (70-99) mg/dl POC Glucose (other) (70-99) mg/dl Estimat Average Glucose Hemoglobin A1c Osmolality (280-300) mOsm/kg Lactate (0.4-2.0) mmol/L Calcium (8.6-10.3) mg/dl Phosphorus (2.5-4.9) mg/dl Magnesium (1.7-2.4) mg/dl Total Bilirubin (0.2-1.0) mg/dl Direct Bilirubin (0-0.2) mg/dl AST (13-39) U/L ALT (7-52) U/L Alkaline Phosphatase (34-104) U/L Troponin I High Sens (0-14) pg/ml Total Protein (6.0-8.3) gm/dl Albumin (3.4-5.0) gm/dl Globulin (2.5-4.0) gm/dl Albumin/Globulin Ratio (0.9-2) Procalcitonin (0-0.5) ng/ml TSH (0.300-4.500) uIu/ml Free T4 (0.61-1.60) ng/dl Random Cortisol mcg/dl Urine Color Urine Appearance (Clear) Urine pH (4.5-7.5) Ur Specific [place] (1.000-1.030) Urine Protein (Negative) Urine Glucose (UA) (Negative) Urine Ketones (Negative) Urine Blood (Negative) Urine Nitrite (Negative) Urine Bilirubin (Negative) Urine Urobilinogen (Negative) Ur Leukocyte Esterase (Negative) Urine WBC (Auto) (0-5) /hpf Urine RBC (Auto) (0-4) /hpf U Hyaline Cast (Auto) (0-5) /lpf U Epithel Cells (Auto) (0-5) /lpf Urine Bacteria (Auto) (Negative) Urine Yeast Urine Osmolality (500-800) mOsm/kg Ur Random Sodium mmol/L Nasal Screen MRSA (PCR) (Negative) Stl C. diff Tox B Gene (Neg) Stl C.difficile Tox A&B (Negative) Blood Type Antibody Screen Antibody Identification Antibody ID Comment 01/17/23 01/17/23 01/17/23 Range/Units 04:11 04:10 04:10 WBC (4.8-10.8) K/ul RBC (4.20-5.40) M/uL Hgb (12.0-16.0) g/dl POC Hgb (12.0-16.0) g/dl Hct (37.0-47.0) % POC Hct (37-47) % MCV (80.0-100.0) fL MCH (25.0-34.0) pg MCHC (32.0-36.0) g/dL RDW Std Deviation (36.4-46.3) fL RDW Coeff of Anant (11.5-14.5) % Plt Count (130-400) K/uL MPV (9.4-12.4) fL Immature Gran % (Auto) % Neut % (Auto) % Lymph % (Auto) % [place] % (Auto) % Eos % (Auto) % Baso % (Auto) % Neut # (Auto) (1.40-6.50) K/uL Lymph # (Auto) (1.20-3.40) K/uL [place] # (Auto) (0.11-0.59) K/uL Eos # (Auto) (0.00-0.50) K/uL Baso # (Auto) (0.00-0.20) K/uL Immature Gran # (Auto) (0.01-0.20) K/uL Absolute Nucleated RBC (0.00-0.12) K/uL Nucleated RBC % (auto) % Polychromasia Echinocytes PT (9.0-12.0) Seconds INR (0.9-1.1) APTT (21.0-31.0) Seconds PTT Ratio Fibrinogen Sample Site POC pH (7.35-7.45) POC pCO2 (35-46) mmHg POC pO2 (80-95) mmHg POC HCO3 (19-24) tahir/L POC Total CO2 (24-31) mmol/L POC Base Excess (-9-1.8) tahir/L ABG pH ABG pH (Temp Correct) (7.35-7.45) ABG pCO2 ABG pCO2 (Temp Corrct (35-46) mmHg ABG pO2 POC ABG pO2 at Pt Temp ABG HCO3 POC ABG O2 Sat (90-95) % ABG O2 Saturation ABG Base Excess Gaetano Test Barometric Pressure Oxygen Given O2 Delivery Device POC Sodium (135-144) mmol/L Sodium 131 L (136-145) mmol/L POC Potassium (3.3-5.0) mmol/L Potassium 4.2 D (3.5-5.1) mmol/L Chloride 102 (98-107) mmol/L Carbon Dioxide 12 L (21-32) mmol/L Anion Gap 17 H (3-11) BUN 53 H (6-23) mg/dl Creatinine 2.80 H (0.6-1.2) mg/dl Est Cr Clr Drug Dosing 13.3 ml/min Est GFR ( Amer) 17.7 ml/min Est GFR (Non-Af Amer) 15.3 ml/min BUN/Creatinine Ratio 18.9 (10-20) Glucose 111 H (70-99(Fasting)) mg/dl POC Glucose (70-99) mg/dl POC Glucose (other) (70-99) mg/dl Estimat Average Glucose Pending Hemoglobin A1c Pending Osmolality (280-300) mOsm/kg Lactate 6.8 H* (0.4-2.0) mmol/L Calcium 7.4 L (8.6-10.3) mg/dl Phosphorus (2.5-4.9) mg/dl Magnesium 2.4 (1.7-2.4) mg/dl Total Bilirubin 1.1 H (0.2-1.0) mg/dl Direct Bilirubin (0-0.2) mg/dl AST 26 (13-39) U/L ALT 22 (7-52) U/L Alkaline Phosphatase 48 (34-104) U/L Troponin I High Sens (0-14) pg/ml Total Protein 3.0 L D (6.0-8.3) gm/dl Albumin 1.9 L (3.4-5.0) gm/dl Globulin 1.1 L (2.5-4.0) gm/dl Albumin/Globulin Ratio 1.7 (0.9-2) Procalcitonin (0-0.5) ng/ml TSH (0.300-4.500) uIu/ml Free T4 (0.61-1.60) ng/dl Random Cortisol mcg/dl Urine Color Urine Appearance (Clear) Urine pH (4.5-7.5) Ur Specific [place] (1.000-1.030) Urine Protein (Negative) Urine Glucose (UA) (Negative) Urine Ketones (Negative) Urine Blood (Negative) Urine Nitrite (Negative) Urine Bilirubin (Negative) Urine Urobilinogen (Negative) Ur Leukocyte Esterase (Negative) Urine WBC (Auto) (0-5) /hpf Urine RBC (Auto) (0-4) /hpf U Hyaline Cast (Auto) (0-5) /lpf U Epithel Cells (Auto) (0-5) /lpf Urine Bacteria (Auto) (Negative) Urine Yeast Urine Osmolality (500-800) mOsm/kg Ur Random Sodium mmol/L Nasal Screen MRSA (PCR) (Negative) Stl C. diff Tox B Gene (Neg) Stl C.difficile Tox A&B (Negative) Blood Type Antibody Screen Antibody Identification Antibody ID Comment 01/17/23 01/17/23 01/17/23 Range/Units 04:10 04:10 02:23 WBC 35.36 H* (4.8-10.8) K/ul RBC 5.44 H (4.20-5.40) M/uL Hgb 16.1 H (12.0-16.0) g/dl POC Hgb (12.0-16.0) g/dl Hct 46.7 (37.0-47.0) % POC Hct (37-47) % MCV 85.8 (80.0-100.0) fL MCH 29.6 (25.0-34.0) pg MCHC 34.5 (32.0-36.0) g/dL RDW Std Deviation 51.1 H (36.4-46.3) fL RDW Coeff of Anant 16.9 H (11.5-14.5) % Plt Count 155 (130-400) K/uL MPV 11.0 (9.4-12.4) fL Immature Gran % (Auto) 3.0 % Neut % (Auto) 86.5 % Lymph % (Auto) 6.0 % [place] % (Auto) 4.1 % Eos % (Auto) 0.0 % Baso % (Auto) 0.4 % Neut # (Auto) 30.59 H (1.40-6.50) K/uL Lymph # (Auto) 2.12 (1.20-3.40) K/uL [place] # (Auto) 1.45 H (0.11-0.59) K/uL Eos # (Auto) 0.00 (0.00-0.50) K/uL Baso # (Auto) 0.13 (0.00-0.20) K/uL Immature Gran # (Auto) 1.07 H (0.01-0.20) K/uL Absolute Nucleated RBC 0.02 (0.00-0.12) K/uL Nucleated RBC % (auto) 0.1 % Polychromasia Echinocytes PT 24.6 H (9.0-12.0) Seconds INR 2.4 H (0.9-1.1) APTT 51.5 H* (21.0-31.0) Seconds PTT Ratio 1.8 Fibrinogen Sample Site POC pH (7.35-7.45) POC pCO2 (35-46) mmHg POC pO2 (80-95) mmHg POC HCO3 (19-24) tahir/L POC Total CO2 (24-31) mmol/L POC Base Excess (-9-1.8) tahir/L ABG pH ABG pH (Temp Correct) (7.35-7.45) ABG pCO2 ABG pCO2 (Temp Corrct (35-46) mmHg ABG pO2 POC ABG pO2 at Pt Temp ABG HCO3 POC ABG O2 Sat (90-95) % ABG O2 Saturation ABG Base Excess Gaetano Test Barometric Pressure Oxygen Given O2 Delivery Device POC Sodium (135-144) mmol/L Sodium (136-145) mmol/L POC Potassium (3.3-5.0) mmol/L Potassium (3.5-5.1) mmol/L Chloride (98-107) mmol/L Carbon Dioxide (21-32) mmol/L Anion Gap (3-11) BUN (6-23) mg/dl Creatinine (0.6-1.2) mg/dl Est Cr Clr Drug Dosing ml/min Est GFR ( Amer) ml/min Est GFR (Non-Af Amer) ml/min BUN/Creatinine Ratio (10-20) Glucose (70-99(Fasting)) mg/dl POC Glucose (70-99) mg/dl POC Glucose (other) (70-99) mg/dl Estimat Average Glucose Hemoglobin A1c Osmolality (280-300) mOsm/kg Lactate (0.4-2.0) mmol/L Calcium (8.6-10.3) mg/dl Phosphorus (2.5-4.9) mg/dl Magnesium (1.7-2.4) mg/dl Total Bilirubin (0.2-1.0) mg/dl Direct Bilirubin (0-0.2) mg/dl AST (13-39) U/L ALT (7-52) U/L Alkaline Phosphatase (34-104) U/L Troponin I High Sens 207.0 H* (0-14) pg/ml Total Protein (6.0-8.3) gm/dl Albumin (3.4-5.0) gm/dl Globulin (2.5-4.0) gm/dl Albumin/Globulin Ratio (0.9-2) Procalcitonin (0-0.5) ng/ml TSH (0.300-4.500) uIu/ml Free T4 (0.61-1.60) ng/dl Random Cortisol mcg/dl Urine Color Urine Appearance (Clear) Urine pH (4.5-7.5) Ur Specific [place] (1.000-1.030) Urine Protein (Negative) Urine Glucose (UA) (Negative) Urine Ketones (Negative) Urine Blood (Negative) Urine Nitrite (Negative) Urine Bilirubin (Negative) Urine Urobilinogen (Negative) Ur Leukocyte Esterase (Negative) Urine WBC (Auto) (0-5) /hpf Urine RBC (Auto) (0-4) /hpf U Hyaline Cast (Auto) (0-5) /lpf U Epithel Cells (Auto) (0-5) /lpf Urine Bacteria (Auto) (Negative) Urine Yeast Urine Osmolality (500-800) mOsm/kg Ur Random Sodium mmol/L Nasal Screen MRSA (PCR) (Negative) Stl C. diff Tox B Gene (Neg) Stl C.difficile Tox A&B (Negative) Blood Type Antibody Screen Antibody Identification Antibody ID Comment 01/17/23 01/17/23 01/16/23 Range/Units 01:16 00:00 Unknown WBC (4.8-10.8) K/ul RBC (4.20-5.40) M/uL Hgb (12.0-16.0) g/dl POC Hgb (12.0-16.0) g/dl Hct (37.0-47.0) % POC Hct (37-47) % MCV (80.0-100.0) fL MCH (25.0-34.0) pg MCHC (32.0-36.0) g/dL RDW Std Deviation (36.4-46.3) fL RDW Coeff of Anant (11.5-14.5) % Plt Count (130-400) K/uL MPV (9.4-12.4) fL Immature Gran % (Auto) % Neut % (Auto) % Lymph % (Auto) % [place] % (Auto) % Eos % (Auto) % Baso % (Auto) % Neut # (Auto) (1.40-6.50) K/uL Lymph # (Auto) (1.20-3.40) K/uL [place] # (Auto) (0.11-0.59) K/uL Eos # (Auto) (0.00-0.50) K/uL Baso # (Auto) (0.00-0.20) K/uL Immature Gran # (Auto) (0.01-0.20) K/uL Absolute Nucleated RBC (0.00-0.12) K/uL Nucleated RBC % (auto) % Polychromasia Echinocytes PT (9.0-12.0) Seconds INR (0.9-1.1) APTT (21.0-31.0) Seconds PTT Ratio Fibrinogen Sample Site POC pH (7.35-7.45) POC pCO2 (35-46) mmHg POC pO2 (80-95) mmHg POC HCO3 (19-24) tahir/L POC Total CO2 (24-31) mmol/L POC Base Excess (-9-1.8) tahir/L ABG pH ABG pH (Temp Correct) (7.35-7.45) ABG pCO2 ABG pCO2 (Temp Corrct (35-46) mmHg ABG pO2 POC ABG pO2 at Pt Temp ABG HCO3 POC ABG O2 Sat (90-95) % ABG O2 Saturation ABG Base Excess Gaetano Test Barometric Pressure Oxygen Given O2 Delivery Device POC Sodium (135-144) mmol/L Sodium (136-145) mmol/L POC Potassium (3.3-5.0) mmol/L Potassium (3.5-5.1) mmol/L Chloride (98-107) mmol/L Carbon Dioxide (21-32) mmol/L Anion Gap (3-11) BUN (6-23) mg/dl Creatinine (0.6-1.2) mg/dl Est Cr Clr Drug Dosing ml/min Est GFR ( Amer) ml/min Est GFR (Non-Af Amer) ml/min BUN/Creatinine Ratio (10-20) Glucose (70-99(Fasting)) mg/dl POC Glucose (70-99) mg/dl POC Glucose (other) (70-99) mg/dl Estimat Average Glucose Hemoglobin A1c Osmolality (280-300) mOsm/kg Lactate 5.2 H* (0.4-2.0) mmol/L Calcium (8.6-10.3) mg/dl Phosphorus (2.5-4.9) mg/dl Magnesium (1.7-2.4) mg/dl Total Bilirubin (0.2-1.0) mg/dl Direct Bilirubin (0-0.2) mg/dl AST (13-39) U/L ALT (7-52) U/L Alkaline Phosphatase (34-104) U/L Troponin I High Sens (0-14) pg/ml Total Protein (6.0-8.3) gm/dl Albumin (3.4-5.0) gm/dl Globulin (2.5-4.0) gm/dl Albumin/Globulin Ratio (0.9-2) Procalcitonin (0-0.5) ng/ml TSH (0.300-4.500) uIu/ml Free T4 (0.61-1.60) ng/dl Random Cortisol mcg/dl Urine Color Urine Appearance (Clear) Urine pH (4.5-7.5) Ur Specific [place] (1.000-1.030) Urine Protein (Negative) Urine Glucose (UA) (Negative) Urine Ketones (Negative) Urine Blood (Negative) Urine Nitrite (Negative) Urine Bilirubin (Negative) Urine Urobilinogen (Negative) Ur Leukocyte Esterase (Negative) Urine WBC (Auto) (0-5) /hpf Urine RBC (Auto) (0-4) /hpf U Hyaline Cast (Auto) (0-5) /lpf U Epithel Cells (Auto) (0-5) /lpf Urine Bacteria (Auto) (Negative) Urine Yeast Urine Osmolality (500-800) mOsm/kg Ur Random Sodium mmol/L Nasal Screen MRSA (PCR) Negative (Negative) Stl C. diff Tox B Gene Positive Cdiff Gene H (Neg) Stl C.difficile Tox A&B Positive Cdiff Toxin A* (Negative) Blood Type Antibody Screen Antibody Identification Antibody ID Comment 01/16/23 01/16/23 01/16/23 Range/Units Unknown Unknown Unknown WBC (4.8-10.8) K/ul RBC (4.20-5.40) M/uL Hgb (12.0-16.0) g/dl POC Hgb (12.0-16.0) g/dl Hct (37.0-47.0) % POC Hct (37-47) % MCV (80.0-100.0) fL MCH (25.0-34.0) pg MCHC (32.0-36.0) g/dL RDW Std Deviation (36.4-46.3) fL RDW Coeff of Anant (11.5-14.5) % Plt Count (130-400) K/uL MPV (9.4-12.4) fL Immature Gran % (Auto) % Neut % (Auto) % Lymph % (Auto) % [place] % (Auto) % Eos % (Auto) % Baso % (Auto) % Neut # (Auto) (1.40-6.50) K/uL Lymph # (Auto) (1.20-3.40) K/uL [place] # (Auto) (0.11-0.59) K/uL Eos # (Auto) (0.00-0.50) K/uL Baso # (Auto) (0.00-0.20) K/uL Immature Gran # (Auto) (0.01-0.20) K/uL Absolute Nucleated RBC (0.00-0.12) K/uL Nucleated RBC % (auto) % Polychromasia Echinocytes PT (9.0-12.0) Seconds INR (0.9-1.1) APTT (21.0-31.0) Seconds PTT Ratio Fibrinogen Sample Site POC pH (7.35-7.45) POC pCO2 (35-46) mmHg POC pO2 (80-95) mmHg POC HCO3 (19-24) thair/L POC Total CO2 (24-31) mmol/L POC Base Excess (-9-1.8) tahir/L ABG pH ABG pH (Temp Correct) (7.35-7.45) ABG pCO2 ABG pCO2 (Temp Corrct (35-46) mmHg ABG pO2 POC ABG pO2 at Pt Temp ABG HCO3 POC ABG O2 Sat (90-95) % ABG O2 Saturation ABG Base Excess Gaetano Test Barometric Pressure Oxygen Given O2 Delivery Device POC Sodium (135-144) mmol/L Sodium (136-145) mmol/L POC Potassium (3.3-5.0) mmol/L Potassium (3.5-5.1) mmol/L Chloride (98-107) mmol/L Carbon Dioxide (21-32) mmol/L Anion Gap (3-11) BUN (6-23) mg/dl Creatinine (0.6-1.2) mg/dl Est Cr Clr Drug Dosing ml/min Est GFR ( Amer) ml/min Est GFR (Non-Af Amer) ml/min BUN/Creatinine Ratio (10-20) Glucose (70-99(Fasting)) mg/dl POC Glucose (70-99) mg/dl POC Glucose (other) (70-99) mg/dl Estimat Average Glucose Hemoglobin A1c Osmolality (280-300) mOsm/kg Lactate (0.4-2.0) mmol/L Calcium (8.6-10.3) mg/dl Phosphorus (2.5-4.9) mg/dl Magnesium (1.7-2.4) mg/dl Total Bilirubin (0.2-1.0) mg/dl Direct Bilirubin (0-0.2) mg/dl AST (13-39) U/L ALT (7-52) U/L Alkaline Phosphatase (34-104) U/L Troponin I High Sens (0-14) pg/ml Total Protein (6.0-8.3) gm/dl Albumin (3.4-5.0) gm/dl Globulin (2.5-4.0) gm/dl Albumin/Globulin Ratio (0.9-2) Procalcitonin (0-0.5) ng/ml TSH (0.300-4.500) uIu/ml Free T4 (0.61-1.60) ng/dl Random Cortisol mcg/dl Urine Color [place] Urine Appearance Cloudy A (Clear) Urine pH 5.0 (4.5-7.5) Ur Specific [place] 1.025 (1.000-1.030) Urine Protein 1+ H (Negative) Urine Glucose (UA) Trace H (Negative) Urine Ketones Trace H (Negative) Urine Blood Negative (Negative) Urine Nitrite Positive A (Negative) Urine Bilirubin 2+ H (Negative) Urine Urobilinogen Negative (Negative) Ur Leukocyte Esterase 1+ H (Negative) Urine WBC (Auto) 10-30 H (0-5) /hpf Urine RBC (Auto) 0-4 (0-4) /hpf U Hyaline Cast (Auto) 10-30 H (0-5) /lpf U Epithel Cells (Auto) >30 H (0-5) /lpf Urine Bacteria (Auto) Negative (Negative) Urine Yeast Not Reportable Urine Osmolality 376 L (500-800) mOsm/kg Ur Random Sodium 12 mmol/L Nasal Screen MRSA (PCR) (Negative) Stl C. diff Tox B Gene (Neg) Stl C.difficile Tox A&B (Negative) Blood Type Antibody Screen Antibody Identification Antibody ID Comment 01/16/23 01/16/23 01/16/23 Range/Units 23:21 23:05 23:05 WBC (4.8-10.8) K/ul RBC (4.20-5.40) M/uL Hgb (12.0-16.0) g/dl POC Hgb (12.0-16.0) g/dl Hct (37.0-47.0) % POC Hct (37-47) % MCV (80.0-100.0) fL MCH (25.0-34.0) pg MCHC (32.0-36.0) g/dL RDW Std Deviation (36.4-46.3) fL RDW Coeff of Anant (11.5-14.5) % Plt Count (130-400) K/uL MPV (9.4-12.4) fL Immature Gran % (Auto) % Neut % (Auto) % Lymph % (Auto) % [place] % (Auto) % Eos % (Auto) % Baso % (Auto) % Neut # (Auto) (1.40-6.50) K/uL Lymph # (Auto) (1.20-3.40) K/uL [place] # (Auto) (0.11-0.59) K/uL Eos # (Auto) (0.00-0.50) K/uL Baso # (Auto) (0.00-0.20) K/uL Immature Gran # (Auto) (0.01-0.20) K/uL Absolute Nucleated RBC (0.00-0.12) K/uL Nucleated RBC % (auto) % Polychromasia Echinocytes PT (9.0-12.0) Seconds INR (0.9-1.1) APTT (21.0-31.0) Seconds PTT Ratio Fibrinogen Sample Site POC pH (7.35-7.45) POC pCO2 (35-46) mmHg POC pO2 (80-95) mmHg POC HCO3 (19-24) tahir/L POC Total CO2 (24-31) mmol/L POC Base Excess (-9-1.8) tahir/L ABG pH ABG pH (Temp Correct) (7.35-7.45) ABG pCO2 ABG pCO2 (Temp Corrct (35-46) mmHg ABG pO2 POC ABG pO2 at Pt Temp ABG HCO3 POC ABG O2 Sat (90-95) % ABG O2 Saturation ABG Base Excess Gaetano Test Barometric Pressure Oxygen Given O2 Delivery Device POC Sodium (135-144) mmol/L Sodium 132 L (136-145) mmol/L POC Potassium (3.3-5.0) mmol/L Potassium 3.3 L (3.5-5.1) mmol/L Chloride 102 (98-107) mmol/L Carbon Dioxide 16 L (21-32) mmol/L Anion Gap 14 H (3-11) BUN 52 H (6-23) mg/dl Creatinine 2.69 H D (0.6-1.2) mg/dl Est Cr Clr Drug Dosing 13.8 ml/min Est GFR ( Amer) 18.6 ml/min Est GFR (Non-Af Amer) 16.1 ml/min BUN/Creatinine Ratio 19.3 (10-20) Glucose 153 H (70-99(Fasting)) mg/dl POC Glucose 128 H (70-99) mg/dl POC Glucose (other) (70-99) mg/dl Estimat Average Glucose Hemoglobin A1c Osmolality (280-300) mOsm/kg Lactate 4.1 H* (0.4-2.0) mmol/L Calcium 7.3 L (8.6-10.3) mg/dl Phosphorus 5.9 H (2.5-4.9) mg/dl Magnesium (1.7-2.4) mg/dl Total Bilirubin (0.2-1.0) mg/dl Direct Bilirubin (0-0.2) mg/dl AST (13-39) U/L ALT (7-52) U/L Alkaline Phosphatase (34-104) U/L Troponin I High Sens 208.9 H* D (0-14) pg/ml Total Protein (6.0-8.3) gm/dl Albumin (3.4-5.0) gm/dl Globulin (2.5-4.0) gm/dl Albumin/Globulin Ratio (0.9-2) Procalcitonin (0-0.5) ng/ml TSH (0.300-4.500) uIu/ml Free T4 (0.61-1.60) ng/dl Random Cortisol mcg/dl Urine Color Urine Appearance (Clear) Urine pH (4.5-7.5) Ur Specific [place] (1.000-1.030) Urine Protein (Negative) Urine Glucose (UA) (Negative) Urine Ketones (Negative) Urine Blood (Negative) Urine Nitrite (Negative) Urine Bilirubin (Negative) Urine Urobilinogen (Negative) Ur Leukocyte Esterase (Negative) Urine WBC (Auto) (0-5) /hpf Urine RBC (Auto) (0-4) /hpf U Hyaline Cast (Auto) (0-5) /lpf U Epithel Cells (Auto) (0-5) /lpf Urine Bacteria (Auto) (Negative) Urine Yeast Urine Osmolality (500-800) mOsm/kg Ur Random Sodium mmol/L Nasal Screen MRSA (PCR) (Negative) Stl C. diff Tox B Gene (Neg) Stl C.difficile Tox A&B (Negative) Blood Type Antibody Screen Antibody Identification Antibody ID Comment 01/16/23 01/16/23 01/16/23 Range/Units 20:10 20:10 16:10 WBC (4.8-10.8) K/ul RBC (4.20-5.40) M/uL Hgb (12.0-16.0) g/dl POC Hgb (12.0-16.0) g/dl Hct (37.0-47.0) % POC Hct (37-47) % MCV (80.0-100.0) fL MCH (25.0-34.0) pg MCHC (32.0-36.0) g/dL RDW Std Deviation (36.4-46.3) fL RDW Coeff of Anant (11.5-14.5) % Plt Count (130-400) K/uL MPV (9.4-12.4) fL Immature Gran % (Auto) % Neut % (Auto) % Lymph % (Auto) % [place] % (Auto) % Eos % (Auto) % Baso % (Auto) % Neut # (Auto) (1.40-6.50) K/uL Lymph # (Auto) (1.20-3.40) K/uL [place] # (Auto) (0.11-0.59) K/uL Eos # (Auto) (0.00-0.50) K/uL Baso # (Auto) (0.00-0.20) K/uL Immature Gran # (Auto) (0.01-0.20) K/uL Absolute Nucleated RBC (0.00-0.12) K/uL Nucleated RBC % (auto) % Polychromasia Echinocytes PT (9.0-12.0) Seconds INR (0.9-1.1) APTT (21.0-31.0) Seconds PTT Ratio Fibrinogen Sample Site POC pH (7.35-7.45) POC pCO2 (35-46) mmHg POC pO2 (80-95) mmHg POC HCO3 (19-24) tahir/L POC Total CO2 (24-31) mmol/L POC Base Excess (-9-1.8) tahir/L ABG pH ABG pH (Temp Correct) (7.35-7.45) ABG pCO2 ABG pCO2 (Temp Corrct (35-46) mmHg ABG pO2 POC ABG pO2 at Pt Temp ABG HCO3 POC ABG O2 Sat (90-95) % ABG O2 Saturation ABG Base Excess Gaetano Test Barometric Pressure Oxygen Given O2 Delivery Device POC Sodium (135-144) mmol/L Sodium 130 L (136-145) mmol/L POC Potassium (3.3-5.0) mmol/L Potassium 2.8 L (3.5-5.1) mmol/L Chloride 102 (98-107) mmol/L Carbon Dioxide 17 L (21-32) mmol/L Anion Gap 11 (3-11) BUN 48 H (6-23) mg/dl Creatinine 2.32 H (0.6-1.2) mg/dl Est Cr Clr Drug Dosing 18.1 ml/min Est GFR ( Amer) 22.3 ml/min Est GFR (Non-Af Amer) 19.2 ml/min BUN/Creatinine Ratio 20.7 H (10-20) Glucose 159 H (70-99(Fasting)) mg/dl POC Glucose (70-99) mg/dl POC Glucose (other) (70-99) mg/dl Estimat Average Glucose Hemoglobin A1c Osmolality (280-300) mOsm/kg Lactate 2.2 H* (0.4-2.0) mmol/L Calcium 7.1 L (8.6-10.3) mg/dl Phosphorus 4.9 (2.5-4.9) mg/dl Magnesium (1.7-2.4) mg/dl Total Bilirubin (0.2-1.0) mg/dl Direct Bilirubin (0-0.2) mg/dl AST (13-39) U/L ALT (7-52) U/L Alkaline Phosphatase (34-104) U/L Troponin I High Sens 129.9 H* (0-14) pg/ml Total Protein (6.0-8.3) gm/dl Albumin 2.1 L (3.4-5.0) gm/dl Globulin (2.5-4.0) gm/dl Albumin/Globulin Ratio (0.9-2) Procalcitonin (0-0.5) ng/ml TSH (0.300-4.500) uIu/ml Free T4 (0.61-1.60) ng/dl Random Cortisol mcg/dl Urine Color Urine Appearance (Clear) Urine pH (4.5-7.5) Ur Specific [place] (1.000-1.030) Urine Protein (Negative) Urine Glucose (UA) (Negative) Urine Ketones (Negative) Urine Blood (Negative) Urine Nitrite (Negative) Urine Bilirubin (Negative) Urine Urobilinogen (Negative) Ur Leukocyte Esterase (Negative) Urine WBC (Auto) (0-5) /hpf Urine RBC (Auto) (0-4) /hpf U Hyaline Cast (Auto) (0-5) /lpf U Epithel Cells (Auto) (0-5) /lpf Urine Bacteria (Auto) (Negative) Urine Yeast Urine Osmolality (500-800) mOsm/kg Ur Random Sodium mmol/L Nasal Screen MRSA (PCR) (Negative) Stl C. diff Tox B Gene (Neg) Stl C.difficile Tox A&B (Negative) Blood Type Antibody Screen Antibody Identification Antibody ID Comment 01/16/23 01/16/23 01/16/23 Range/Units 16:10 16:09 16:09 WBC (4.8-10.8) K/ul RBC (4.20-5.40) M/uL Hgb (12.0-16.0) g/dl POC Hgb (12.0-16.0) g/dl Hct (37.0-47.0) % POC Hct (37-47) % MCV (80.0-100.0) fL MCH (25.0-34.0) pg MCHC (32.0-36.0) g/dL RDW Std Deviation (36.4-46.3) fL RDW Coeff of Anant (11.5-14.5) % Plt Count (130-400) K/uL MPV (9.4-12.4) fL Immature Gran % (Auto) % Neut % (Auto) % Lymph % (Auto) % [place] % (Auto) % Eos % (Auto) % Baso % (Auto) % Neut # (Auto) (1.40-6.50) K/uL Lymph # (Auto) (1.20-3.40) K/uL [place] # (Auto) (0.11-0.59) K/uL Eos # (Auto) (0.00-0.50) K/uL Baso # (Auto) (0.00-0.20) K/uL Immature Gran # (Auto) (0.01-0.20) K/uL Absolute Nucleated RBC (0.00-0.12) K/uL Nucleated RBC % (auto) % Polychromasia Echinocytes PT (9.0-12.0) Seconds INR (0.9-1.1) APTT (21.0-31.0) Seconds PTT Ratio Fibrinogen Sample Site POC pH (7.35-7.45) POC pCO2 (35-46) mmHg POC pO2 (80-95) mmHg POC HCO3 (19-24) tahir/L POC Total CO2 (24-31) mmol/L POC Base Excess (-9-1.8) tahir/L ABG pH 7.43 ABG pH (Temp Correct) (7.35-7.45) ABG pCO2 20 L ABG pCO2 (Temp Corrct (35-46) mmHg ABG pO2 96 H POC ABG pO2 at Pt Temp ABG HCO3 13 L POC ABG O2 Sat (90-95) % ABG O2 Saturation 98.9 H ABG Base Excess -8.7 Gaetano Test Pos Barometric Pressure Oxygen Given ROOM AIR O2 Delivery Device POC Sodium (135-144) mmol/L Sodium (136-145) mmol/L POC Potassium (3.3-5.0) mmol/L Potassium (3.5-5.1) mmol/L Chloride (98-107) mmol/L Carbon Dioxide (21-32) mmol/L Anion Gap (3-11) BUN (6-23) mg/dl Creatinine (0.6-1.2) mg/dl Est Cr Clr Drug Dosing ml/min Est GFR ( Amer) ml/min Est GFR (Non-Af Amer) ml/min BUN/Creatinine Ratio (10-20) Glucose (70-99(Fasting)) mg/dl POC Glucose (70-99) mg/dl POC Glucose (other) (70-99) mg/dl Estimat Average Glucose Hemoglobin A1c Osmolality (280-300) mOsm/kg Lactate (0.4-2.0) mmol/L Calcium (8.6-10.3) mg/dl Phosphorus (2.5-4.9) mg/dl Magnesium (1.7-2.4) mg/dl Total Bilirubin (0.2-1.0) mg/dl Direct Bilirubin (0-0.2) mg/dl AST (13-39) U/L ALT (7-52) U/L Alkaline Phosphatase (34-104) U/L Troponin I High Sens (0-14) pg/ml Total Protein (6.0-8.3) gm/dl Albumin (3.4-5.0) gm/dl Globulin (2.5-4.0) gm/dl Albumin/Globulin Ratio (0.9-2) Procalcitonin (0-0.5) ng/ml TSH (0.300-4.500) uIu/ml Free T4 (0.61-1.60) ng/dl Random Cortisol > 60.00 mcg/dl Urine Color Urine Appearance (Clear) Urine pH (4.5-7.5) Ur Specific [place] (1.000-1.030) Urine Protein (Negative) Urine Glucose (UA) (Negative) Urine Ketones (Negative) Urine Blood (Negative) Urine Nitrite (Negative) Urine Bilirubin (Negative) Urine Urobilinogen (Negative) Ur Leukocyte Esterase (Negative) Urine WBC (Auto) (0-5) /hpf Urine RBC (Auto) (0-4) /hpf U Hyaline Cast (Auto) (0-5) /lpf U Epithel Cells (Auto) (0-5) /lpf Urine Bacteria (Auto) (Negative) Urine Yeast Urine Osmolality (500-800) mOsm/kg Ur Random Sodium mmol/L Nasal Screen MRSA (PCR) (Negative) Stl C. diff Tox B Gene (Neg) Stl C.difficile Tox A&B (Negative) Blood Type A Negative Antibody Screen NEGATIVE Antibody Identification Cancelled Antibody ID Comment Cancelled 01/16/23 01/16/23 01/16/23 Range/Units 16:09 15:14 15:12 WBC (4.8-10.8) K/ul RBC (4.20-5.40) M/uL Hgb (12.0-16.0) g/dl POC Hgb (12.0-16.0) g/dl Hct (37.0-47.0) % POC Hct (37-47) % MCV (80.0-100.0) fL MCH (25.0-34.0) pg MCHC (32.0-36.0) g/dL RDW Std Deviation (36.4-46.3) fL RDW Coeff of Anant (11.5-14.5) % Plt Count (130-400) K/uL MPV (9.4-12.4) fL Immature Gran % (Auto) % Neut % (Auto) % Lymph % (Auto) % [place] % (Auto) % Eos % (Auto) % Baso % (Auto) % Neut # (Auto) (1.40-6.50) K/uL Lymph # (Auto) (1.20-3.40) K/uL [place] # (Auto) (0.11-0.59) K/uL Eos # (Auto) (0.00-0.50) K/uL Baso # (Auto) (0.00-0.20) K/uL Immature Gran # (Auto) (0.01-0.20) K/uL Absolute Nucleated RBC (0.00-0.12) K/uL Nucleated RBC % (auto) % Polychromasia Echinocytes PT 18.2 H (9.0-12.0) Seconds INR 1.7 H (0.9-1.1) APTT 31.0 (21.0-31.0) Seconds PTT Ratio 1.1 Fibrinogen Sample Site POC pH (7.35-7.45) POC pCO2 (35-46) mmHg POC pO2 (80-95) mmHg POC HCO3 (19-24) tahir/L POC Total CO2 (24-31) mmol/L POC Base Excess (-9-1.8) tahir/L ABG pH Cancelled ABG pH (Temp Correct) (7.35-7.45) ABG pCO2 Cancelled ABG pCO2 (Temp Corrct (35-46) mmHg ABG pO2 Cancelled POC ABG pO2 at Pt Temp ABG HCO3 Cancelled POC ABG O2 Sat (90-95) % ABG O2 Saturation Cancelled ABG Base Excess Cancelled Gaetano Test Cancelled Barometric Pressure Cancelled Oxygen Given Cancelled O2 Delivery Device POC Sodium (135-144) mmol/L Sodium (136-145) mmol/L POC Potassium (3.3-5.0) mmol/L Potassium (3.5-5.1) mmol/L Chloride (98-107) mmol/L Carbon Dioxide (21-32) mmol/L Anion Gap (3-11) BUN (6-23) mg/dl Creatinine (0.6-1.2) mg/dl Est Cr Clr Drug Dosing ml/min Est GFR ( Amer) ml/min Est GFR (Non-Af Amer) ml/min BUN/Creatinine Ratio (10-20) Glucose (70-99(Fasting)) mg/dl POC Glucose (70-99) mg/dl POC Glucose (other) (70-99) mg/dl Estimat Average Glucose Hemoglobin A1c Osmolality 281 (280-300) mOsm/kg Lactate (0.4-2.0) mmol/L Calcium (8.6-10.3) mg/dl Phosphorus (2.5-4.9) mg/dl Magnesium (1.7-2.4) mg/dl Total Bilirubin (0.2-1.0) mg/dl Direct Bilirubin (0-0.2) mg/dl AST (13-39) U/L ALT (7-52) U/L Alkaline Phosphatase (34-104) U/L Troponin I High Sens (0-14) pg/ml Total Protein (6.0-8.3) gm/dl Albumin (3.4-5.0) gm/dl Globulin (2.5-4.0) gm/dl Albumin/Globulin Ratio (0.9-2) Procalcitonin (0-0.5) ng/ml TSH (0.300-4.500) uIu/ml Free T4 (0.61-1.60) ng/dl Random Cortisol mcg/dl Urine Color Urine Appearance (Clear) Urine pH (4.5-7.5) Ur Specific [place] (1.000-1.030) Urine Protein (Negative) Urine Glucose (UA) (Negative) Urine Ketones (Negative) Urine Blood (Negative) Urine Nitrite (Negative) Urine Bilirubin (Negative) Urine Urobilinogen (Negative) Ur Leukocyte Esterase (Negative) Urine WBC (Auto) (0-5) /hpf Urine RBC (Auto) (0-4) /hpf U Hyaline Cast (Auto) (0-5) /lpf U Epithel Cells (Auto) (0-5) /lpf Urine Bacteria (Auto) (Negative) Urine Yeast Urine Osmolality (500-800) mOsm/kg Ur Random Sodium mmol/L Nasal Screen MRSA (PCR) (Negative) Stl C. diff Tox B Gene (Neg) Stl C.difficile Tox A&B (Negative) Blood Type Antibody Screen Antibody Identification Antibody ID Comment 01/16/23 01/16/23 01/16/23 Range/Units 15:12 15:12 15:12 WBC (4.8-10.8) K/ul RBC (4.20-5.40) M/uL Hgb (12.0-16.0) g/dl POC Hgb (12.0-16.0) g/dl Hct (37.0-47.0) % POC Hct (37-47) % MCV (80.0-100.0) fL MCH (25.0-34.0) pg MCHC (32.0-36.0) g/dL RDW Std Deviation (36.4-46.3) fL RDW Coeff of Anant (11.5-14.5) % Plt Count (130-400) K/uL MPV (9.4-12.4) fL Immature Gran % (Auto) % Neut % (Auto) % Lymph % (Auto) % [place] % (Auto) % Eos % (Auto) % Baso % (Auto) % Neut # (Auto) (1.40-6.50) K/uL Lymph # (Auto) (1.20-3.40) K/uL [place] # (Auto) (0.11-0.59) K/uL Eos # (Auto) (0.00-0.50) K/uL Baso # (Auto) (0.00-0.20) K/uL Immature Gran # (Auto) (0.01-0.20) K/uL Absolute Nucleated RBC (0.00-0.12) K/uL Nucleated RBC % (auto) % Polychromasia Echinocytes PT (9.0-12.0) Seconds INR (0.9-1.1) APTT (21.0-31.0) Seconds PTT Ratio Fibrinogen Sample Site POC pH (7.35-7.45) POC pCO2 (35-46) mmHg POC pO2 (80-95) mmHg POC HCO3 (19-24) tahir/L POC Total CO2 (24-31) mmol/L POC Base Excess (-9-1.8) tahir/L ABG pH ABG pH (Temp Correct) (7.35-7.45) ABG pCO2 ABG pCO2 (Temp Corrct (35-46) mmHg ABG pO2 POC ABG pO2 at Pt Temp ABG HCO3 POC ABG O2 Sat (90-95) % ABG O2 Saturation ABG Base Excess Gaetano Test Barometric Pressure Oxygen Given O2 Delivery Device POC Sodium (135-144) mmol/L Sodium (136-145) mmol/L POC Potassium (3.3-5.0) mmol/L Potassium (3.5-5.1) mmol/L Chloride (98-107) mmol/L Carbon Dioxide (21-32) mmol/L Anion Gap (3-11) BUN (6-23) mg/dl Creatinine (0.6-1.2) mg/dl Est Cr Clr Drug Dosing ml/min Est GFR ( Amer) ml/min Est GFR (Non-Af Amer) ml/min BUN/Creatinine Ratio (10-20) Glucose (70-99(Fasting)) mg/dl POC Glucose (70-99) mg/dl POC Glucose (other) (70-99) mg/dl Estimat Average Glucose Hemoglobin A1c Osmolality (280-300) mOsm/kg Lactate 4.0 H* (0.4-2.0) mmol/L Calcium (8.6-10.3) mg/dl Phosphorus (2.5-4.9) mg/dl Magnesium (1.7-2.4) mg/dl Total Bilirubin (0.2-1.0) mg/dl Direct Bilirubin (0-0.2) mg/dl AST (13-39) U/L ALT (7-52) U/L Alkaline Phosphatase (34-104) U/L Troponin I High Sens (0-14) pg/ml Total Protein (6.0-8.3) gm/dl Albumin (3.4-5.0) gm/dl Globulin (2.5-4.0) gm/dl Albumin/Globulin Ratio (0.9-2) Procalcitonin 2.60 H (0-0.5) ng/ml TSH (0.300-4.500) uIu/ml Free T4 (0.61-1.60) ng/dl Random Cortisol mcg/dl Urine Color Urine Appearance (Clear) Urine pH (4.5-7.5) Ur Specific [place] (1.000-1.030) Urine Protein (Negative) Urine Glucose (UA) (Negative) Urine Ketones (Negative) Urine Blood (Negative) Urine Nitrite (Negative) Urine Bilirubin (Negative) Urine Urobilinogen (Negative) Ur Leukocyte Esterase (Negative) Urine WBC (Auto) (0-5) /hpf Urine RBC (Auto) (0-4) /hpf U Hyaline Cast (Auto) (0-5) /lpf U Epithel Cells (Auto) (0-5) /lpf Urine Bacteria (Auto) (Negative) Urine Yeast Urine Osmolality (500-800) mOsm/kg Ur Random Sodium mmol/L Nasal Screen MRSA (PCR) (Negative) Stl C. diff Tox B Gene (Neg) Stl C.difficile Tox A&B (Negative) Blood Type Cancelled Antibody Screen Cancelled Antibody Identification Antibody ID Comment 01/16/23 01/16/23 Range/Units 15:12 14:36 WBC 34.29 H* (4.8-10.8) K/ul RBC 5.55 H (4.20-5.40) M/uL Hgb 16.6 H (12.0-16.0) g/dl POC Hgb (12.0-16.0) g/dl Hct 45.8 (37.0-47.0) % POC Hct (37-47) % MCV 82.5 (80.0-100.0) fL MCH 29.9 (25.0-34.0) pg MCHC 36.2 H (32.0-36.0) g/dL RDW Std Deviation 48.3 H (36.4-46.3) fL RDW Coeff of Anant 16.3 H (11.5-14.5) % Plt Count 173 (130-400) K/uL MPV 10.9 (9.4-12.4) fL Immature Gran % (Auto) 2.7 % Neut % (Auto) 84.4 % Lymph % (Auto) 8.3 % [place] % (Auto) 4.2 % Eos % (Auto) 0.1 % Baso % (Auto) 0.3 % Neut # (Auto) 28.93 H (1.40-6.50) K/uL Lymph # (Auto) 2.84 (1.20-3.40) K/uL [place] # (Auto) 1.43 H (0.11-0.59) K/uL Eos # (Auto) 0.05 (0.00-0.50) K/uL Baso # (Auto) 0.10 (0.00-0.20) K/uL Immature Gran # (Auto) 0.94 H (0.01-0.20) K/uL Absolute Nucleated RBC (0.00-0.12) K/uL Nucleated RBC % (auto) % Polychromasia 1+ Echinocytes 2+ PT (9.0-12.0) Seconds INR (0.9-1.1) APTT (21.0-31.0) Seconds PTT Ratio Fibrinogen Sample Site POC pH (7.35-7.45) POC pCO2 (35-46) mmHg POC pO2 (80-95) mmHg POC HCO3 (19-24) tahir/L POC Total CO2 (24-31) mmol/L POC Base Excess (-9-1.8) tahir/L ABG pH ABG pH (Temp Correct) (7.35-7.45) ABG pCO2 ABG pCO2 (Temp Corrct (35-46) mmHg ABG pO2 POC ABG pO2 at Pt Temp ABG HCO3 POC ABG O2 Sat (90-95) % ABG O2 Saturation ABG Base Excess [place] Test Barometric Pressure Oxygen Given O2 Delivery Device POC Sodium (135-144) mmol/L Sodium 130 L (136-145) mmol/L POC Potassium (3.3-5.0) mmol/L Potassium 3.4 L (3.5-5.1) mmol/L Chloride 96 L (98-107) mmol/L Carbon Dioxide 15 L (21-32) mmol/L Anion Gap 19 H (3-11) BUN 44 H (6-23) mg/dl Creatinine 2.50 H (0.6-1.2) mg/dl Est Cr Clr Drug Dosing 16.8 ml/min Est GFR ( Amer) 20.4 ml/min Est GFR (Non-Af Amer) 17.6 ml/min BUN/Creatinine Ratio 17.6 (10-20) Glucose 188 H (70-99(Fasting)) mg/dl POC Glucose (70-99) mg/dl POC Glucose (other) (70-99) mg/dl Estimat Average Glucose Hemoglobin A1c Osmolality (280-300) mOsm/kg Lactate (0.4-2.0) mmol/L Calcium 8.7 (8.6-10.3) mg/dl Phosphorus (2.5-4.9) mg/dl Magnesium 2.5 H (1.7-2.4) mg/dl Total Bilirubin 1.3 H (0.2-1.0) mg/dl Direct Bilirubin 0.1 (0-0.2) mg/dl AST 20 (13-39) U/L ALT 16 (7-52) U/L Alkaline Phosphatase 65 (34-104) U/L Troponin I High Sens 109.1 H* (0-14) pg/ml Total Protein 4.8 L (6.0-8.3) gm/dl Albumin 2.9 L (3.4-5.0) gm/dl Globulin (2.5-4.0) gm/dl Albumin/Globulin Ratio (0.9-2) Procalcitonin (0-0.5) ng/ml TSH 5.540 H (0.300-4.500) uIu/ml Free T4 1.85 H (0.61-1.60) ng/dl Random Cortisol mcg/dl Urine Color Urine Appearance (Clear) Urine pH (4.5-7.5) Ur Specific [place] (1.000-1.030) Urine Protein (Negative) Urine Glucose (UA) (Negative) Urine Ketones (Negative) Urine Blood (Negative) Urine Nitrite (Negative) Urine Bilirubin (Negative) Urine Urobilinogen (Negative) Ur Leukocyte Esterase (Negative) Urine WBC (Auto) (0-5) /hpf Urine RBC (Auto) (0-4) /hpf U Hyaline Cast (Auto) (0-5) /lpf U Epithel Cells (Auto) (0-5) /lpf Urine Bacteria (Auto) (Negative) Urine Yeast Urine Osmolality (500-800) mOsm/kg Ur Random Sodium mmol/L Nasal Screen MRSA (PCR) (Negative) Stl C. diff Tox B Gene (Neg) Stl C.difficile Tox A&B (Negative) Blood Type Antibody Screen Antibody Identification Antibody ID Comment Diagnostic Findings Chest X-Ray 01/16/23 14:02 SINGLE VIEW CHEST CLINICAL HISTORY: Sepsis. FINDINGS: An AP, portable, upright chest radiograph is compared to study dated 12/09/2022. The heart is mildly enlarged noting atherosclerotic calcification of the thoracic aorta. The pulmonary vasculature is noncongested. Nonspecific interstitial thickening is similar to previous. There is mild bibasilar scarring/atelectasis. The lungs and pleural spaces are otherwise clear. No pneumothorax is seen. The skeletal structures are osteopenic. The bony thorax is grossly intact. Cholecystectomy clips are noted in the right upper quadrant. IMPRESSION: No active disease in the chest. ACT 112: Negative or not required by law. Electronically signed by: Crispin Carmen M.D. 01/16/2023 2:14 PM Abdomen/Pelvis CT 01/16/23 15:47 CT SCAN OF THE ABDOMEN AND PELVIS WITHOUT IV CONTRAST CLINICAL HISTORY: Generalized abdominal pain. COMPARISON STUDY: Abdominal CT dated 12/14/2022. TECHNIQUE: CT scan of the abdomen and pelvis is performed from the lung bases to the proximal femora. Images are reviewed in the axial, sagittal, and coronal planes. IV contrast was not administered for this examination. Note that the examination was performed in significantly suboptimal fashion without oral and IV contrast. A dose lowering technique was utilized adhering to the principles of ALARA. CT DOSE: 499.98 mGy.cm FINDINGS: Lung bases: The heart is mildly enlarged and without pericardial effusion. The coronary arteries are densely calcified. The lung bases are clear noting bibasilar scarring/atelectasis. There is a small hiatal hernia. Liver: The unenhanced liver is normal in size, contour, and attenuation. There is no intrahepatic biliary ductal dilatation. Gallbladder: Surgically absent noting clips in the gallbladder fossa. Spleen: Normal in size and attenuation. Pancreas: The unenhanced pancreas is atrophic and grossly unremarkable. Adrenal glands: Unremarkable. Kidneys: The unenhanced kidneys demonstrate cortical atrophy and are without hydronephrosis. No renal calculi are identified. Renal sinus cysts are seen bilaterally. There is no evidence of contour deforming renal mass lesion. Abdominal vasculature: The abdominal aorta is normal in course and caliber. Bowel: There is diffuse colonic wall thickening and edema. This extends from the cecum to the rectum is consistent with a nonspecific proctocolitis. There is no pericolonic inflammation and fluid. No bowel obstruction is seen. There is colonic diverticulosis without CT evidence of acute diverticulitis. The appendix is not identified and reported surgically absent. Peritoneum: No intraperitoneal free air is identified. There is a small volume of abdominopelvic ascites. There is a small fat-containing umbilical hernia. Lymphadenopathy: None. Pelvic viscera: The bladder is partially decompressed and appears circumferentially thick walled. The uterus and adnexa are normal as visualized. Skeletal structures: The skeletal structures are heterogeneously osteopenic. There is an acute to subacute superior endplate compression fracture of L1. This is new from 12/14/2022. There is only minimal loss of height. There is no significant retropulsion of fragments. Mild paravertebral edema is observed. Mild/moderate lumbosacral spondylosis is observed. No lytic or blastic lesions are seen. IMPRESSION: 1. There is a moderate to severe nonspecific proctocolitis, likely on an infectious or inflammatory basis. This extends from the cecum to the rectum. Clinical correlation will be required. 2. Small volume of abdominopelvic ascites. 3. Acute to subacute superior endplate compression fracture of L1. This is new from 12/14/2022. No significant retropulsion of fragments is seen. 4. Additional findings as above. ACT 112: Negative or not required by law. Electronically signed by: Crispin Carmen M.D. 01/16/2023 4:45 PM Venous Doppler Study 01/17/23 05:09 Exam(s): US VENOUS RIGHT LOWER EXTREMITY EXAM: US Duplex Right Lower Extremity Veins CLINICAL HISTORY: Reason for exam: evaluate for DVT. TECHNIQUE: Real-time duplex ultrasound scan of the right lower extremity veins integrating B-mode two-dimensional vascular structure, Doppler spectral analysis, color flow Doppler imaging and compression. COMPARISON: No relevant prior studies available. FINDINGS: Deep veins: Occlusive thrombus within the right common femoral vein, 1 of the right superficial femoral veins, and right popliteal vein. 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 Superficial veins: Unremarkable. No thrombus in the visualized great saphenous vein. 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 IMPRESSION: 1. Occlusive thrombus within the right common femoral vein, 1 of the right superficial femoral veins, and right popliteal vein. 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 Consider follow-up imaging. 2. 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 Electronically signed by: Naveen Rodriguez MD 01/17/23 07:25 AM
--- NOTE | 2023-01-17 09:29 | XRay Report ---
XR chest 1V portable CLINICAL HISTORY: evalaute ETT placement TECHNIQUE: Single frontal radiograph of the chest was obtained. Comparison: Comparison is made to chest radiograph 01/16/2023 FINDINGS: Interval placement of an endotracheal tube with the tip approximately 1.5 cm above the waldo. Right venous catheter is stable. Calcified aortic knob is seen. The lungs are clear. No evidence of pleural effusion or pneumothorax. IMPRESSION: Endotracheal tube terminates 1.5 cm from the waldo. No acute abnormalities. ACT 112: Negative or not required by law. Electronically signed by: Dwaine Campos M.D. 01/17/2023 9:28 AM
--- NOTE | 2023-01-17 09:30 | XRay Report ---
XR chest 1V portable CLINICAL HISTORY: central line placement TECHNIQUE: Single frontal radiograph of the chest was obtained. Comparison: Comparison is made to chest radiograph 01/16/2023 FINDINGS: Right jugular venous catheter terminates at the cavoatrial junction. Calcified aortic knob is seen. T he lungs are clear. No evidence of pleural effusion or pneumothorax. IMPRESSION: No acute chest disease. ACT 112: Negative or not required by law. Electronically signed by: Dwaine Campos M.D. 01/17/2023 9:28 AM
[2023-01-17 09:50] LABS: BUN Creatinine Ratio 19.3 (10-20); Calcium 7.5 mg/dl (8.6-10.3); Creatinine Clr Calc Pharmacy 13.5 ml/min; Est GFR (African American) 18.1 ml/min; Est GFR (Non-African American) 15.6 ml/min
[2023-01-17 10:10] LABS: Fibrinogen 117 mg/dl (184-400); INR 3.5 (0.9-1.1); Prothrombin Time 35.2 Seconds (9.0-12.0)
--- NOTE | 2023-01-17 10:15 | Cardiology Consultation ---
Date of Consultation January 17, 2023 Assessment & Plan (1) Atrial fibrillation with RVR: (2) Coagulopathy: (3) Elevated troponin I level: Plan 1. Atrial fibrillation: She presented in atrial fibrillation with a rapid ventricular response, however is now in sinus rhythm/sinus tachycardia. I do not know if the atrial fibrillation is longstanding paroxysmal or this was acute onset, in either case I would continue the current management. 2. Coagulopathy: She has an elevated and rising PT and INR, she is not on an anticoagulant. I agree that I would not consider anticoagulation, especially since she is now in sinus rhythm. 3. Elevated troponin: Although her troponin is elevated and slightly rising this is consistent with her presentation and I do not believe suggests an acute myocardial infarction and certainly given her condition should not be of value waited invasively. Her electrocardiogram this morning shows some diffuse ST depression which would be consistent with ischemia but there is no ST elevation to suggest an occluded vessel. I would continue to follow troponins but not consider any invasive evaluation at this time. History of Present Illness Reason for Consultation: Atrial fibrillation with rapid ventricular response Attending Physician: Chase Ng MD History of Present Illness This is an 82-year-old woman admitted January 16, 2023 with septic shock. She was also in atrial fibrillation with rapid ventricular response. She has a background history of hypertension osteoarthritis, GERD and colitis for which she was hospitalized in December. She was discharged on December 18, 2022. She presented to the emergency room on January 16, 2023 with complaints of weakness. There she was found to be hypotensive and tachycardic (atrial fibrillation). She also had a coagulopathy. She received amiodarone for her atrial fibrillation, esmolol was considered but I do not think it was given. Options of total colectomy here or transfer to another institution were considered. However given the severity of her illness colectomy was felt too risky and the family preferred the patient be left here. She is currently intubated, not responsive. She remains hypotensive and tachycardic. She converted from atrial fibrillation to sinus rhythm or sinus tachycardia at around 8:30 AM today. Allergies Allergy/AdvReac Type Severity Reaction Status Date / Time Penicillins Allergy Unknown UNKNOWN Verified 12/25/22 13:17 Home Medications Medication Instructions Recorded Confirmed Type vitamins A,C,[id number] 4,296 See Rx Instructions .Route .COMPLEX 10/18/21 12/25/22 History mcg-226 mg-90 mg capsule (PreserVision AREDS) calcium carbonate 600 mg calcium See Rx Instructions .Route .COMPLEX 12/09/22 12/25/22 History (1,500 mg) tablet (Calcium) cholecalciferol (vitamin D3) 25 See Rx Instructions .Route .COMPLEX 12/09/22 12/25/22 History mcg (1,000 unit) tablet (Vitamin D3) prednisone 5 mg tablet 5 mg .Route .COMPLEX 01/01/23 01/16/23 History amlodipine 5 mg tablet See Rx Instructions .Route .COMPLEX 01/16/23 History losartan 50 mg-hydrochlorothiazide See Rx Instructions .Route .COMPLEX 01/16/23 History 12.5 mg tablet mesalamine 1.2 gram tablet,delayed 4.8 g PO DAILY 01/16/23 01/16/23 History release (Lialda) potassium chloride 10 mEq See Rx Instructions .Route .COMPLEX 01/16/23 History capsule,extended release triamcinolone acetonide 0.1 % 1 applic topical BID PRN Other 01/16/23 01/16/23 History topical cream Patient History Medical History Afib Arthritis Colitis Diarrhea GERD (gastroesophageal reflux disease) Hypertension Hypokalemia Hyponatremia Osteopenia Surgical History H/O cataract extraction (2016) History of breast lump/mass excision (1987) Fibroid, 1987 S/P appendectomy S/P cholecystectomy (2009) S/P tonsillectomy Family History Mother Cardiac disorder Stroke Hypertension Myocardial infarction 80's Sister Cardiac disorder Stroke Hypertension Grandfather (Maternal) Diabetes Father No known health problems Denies family history of Ovarian cancer Prostate cancer Breast cancer Colorectal cancer Social History Smoking Status: Never smoker Second Hand Exposure: No; Do You Dip or Chew Tobacco: No; Hx Alcohol Use: No Hx Substance Use: No Preferred Language: Welsh Communication Ability: Effective Visual Impairment: No Limitations Hearing Ability: Normal Coroner/Medical Examiner Required: No Beliefs That Will Affect Care: None marital status: Current Living Situation: Spouse 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 Cardiac rhythm is regular and rapid with no murmur. Lungs are notable for scattered rhonchi Results & Data Vital Signs (Past 12 Hours) Vital Signs Temp Pulse Resp BP Pulse Ox O2 Del Method FiO2 01/17/23 09:10 92 H 30 H 100 01/17/23 09:01 90 30 H 100 01/17/23 09:00 88 30 H 01/17/23 08:50 87 26 H 100 01/17/23 08:40 89 30 H 94 01/17/23 08:30 88 30 H 92 01/17/23 08:30 136/94 01/17/23 08:20 86 26 H 100 01/17/23 08:15 87 30 H 100 01/17/23 08:15 120/91 01/17/23 08:10 85 30 H 97 01/17/23 08:00 82 30 H 01/17/23 08:00 109/80 01/17/23 07:50 94 H 26 H 100 01/17/23 07:40 120 H 30 H 100 01/17/23 07:36 90/72 L 01/17/23 07:36 127 H 30 H 01/17/23 07:30 162 H 30 H 100 01/17/23 07:20 160 H 26 H 98 01/17/23 07:10 153 H 30 H 98 01/17/23 07:00 158 H 30 H 90 01/17/23 08:00 Mechanical Vent 01/17/23 08:00 135 H 01/17/23 09:22 35.4 C L 01/17/23 08:10 50 01/17/23 06:53 161 H 30 H 95 70 01/17/23 05:58 127 H 93/65 L 01/17/23 04:00 127 H 29 H 95 01/17/23 03:50 127 H 31 H 100 01/17/23 03:46 99 01/17/23 03:40 133 H 46 H 100 01/17/23 03:40 93/65 L 01/17/23 03:30 128 H 35 H 95 01/17/23 03:20 130 H 36 H 99 01/17/23 03:16 129 H 20 90 01/17/23 03:16 98/55 L 01/17/23 03:10 124 H 33 H 97 01/17/23 03:01 83/66 L 01/17/23 03:01 130 H 23 95 01/17/23 03:00 128 H 32 H 96 01/17/23 02:50 132 H 23 100 01/17/23 02:40 127 H 28 H 100 01/17/23 02:35 139 H 24 91 01/17/23 02:30 124 H 24 95 01/17/23 02:20 132 H 31 H 98 01/17/23 02:10 123 H 22 98 01/17/23 02:00 127 H 30 H 100 01/17/23 02:00 105/72 01/17/23 01:50 122 H 9 L 95 01/17/23 01:40 124 H 27 H 98 01/17/23 01:39 122 H 31 H 99 01/17/23 01:39 99/67 L 01/17/23 01:38 130 H 31 H 98 01/17/23 01:30 119 H 19 79 L 01/17/23 01:29 96/68 L 01/17/23 01:29 128 H 25 H 01/17/23 01:20 124 H 17 87 L 01/17/23 01:17 91/74 L 01/17/23 01:17 113 H 30 H 01/17/23 01:10 131 H 25 H 99 01/17/23 01:02 75/64 L 01/17/23 01:02 130 H 28 H 99 01/17/23 01:00 130 H 29 H 90 01/17/23 00:50 115 H 26 H 94 01/17/23 00:40 169 H 31 H 96 01/17/23 00:33 92/68 L 01/17/23 00:33 152 H 29 H 99 01/17/23 00:30 154 H 31 H 100 01/17/23 00:20 152 H 25 H 99 01/17/23 02:00 36.2 C L 01/17/23 00:45 135 H 92/68 L 01/17/23 00:36 151 H 137/100 01/17/23 00:10 151 H 26 H 99 01/17/23 00:01 149 H 26 H 99 01/17/23 00:01 137/100 01/17/23 00:00 141 H 25 H 99 01/16/23 23:56 136/95 01/16/23 23:56 142 H 26 H 98 01/16/23 23:50 140 H 28 H 98 01/16/23 23:40 148 H 18 99 01/16/23 23:30 149 H 28 H 99 01/16/23 23:20 156 H 40 H 99 01/16/23 23:10 150 H 27 H 100 01/16/23 23:01 96/75 L 01/16/23 23:01 162 H 31 H 99 01/16/23 23:00 160 H 25 H 99 01/17/23 00:00 144 H Laboratory Results Cardiac Enzymes 01/16/23 01/16/23 01/16/23 Range/Units 14:36 16:10 23:05 AST 20 (13-39) U/L Troponin I High Sens 109.1 H* 129.9 H* 208.9 H* D (0-14) pg/ml 01/17/23 01/17/23 01/17/23 Range/Units 02:23 04:10 07:15 AST 26 (13-39) U/L Troponin I High Sens 207.0 H* 449.8 H* D (0-14) pg/ml Coagulation 01/16/23 01/17/23 Range/Units 15:12 04:10 PT 18.2 H 24.6 H (9.0-12.0) Seconds APTT 31.0 51.5 H* (21.0-31.0) Seconds CBC 01/16/23 01/17/23 Range/Units 15:12 04:10 WBC 34.29 H* 35.36 H* (4.8-10.8) K/ul RBC 5.55 H 5.44 H (4.20-5.40) M/uL Hgb 16.6 H 16.1 H (12.0-16.0) g/dl Hct 45.8 46.7 (37.0-47.0) % Plt Count 173 155 (130-400) K/uL Neut # (Auto) 28.93 H 30.59 H (1.40-6.50) K/uL Lymph # (Auto) 2.84 2.12 (1.20-3.40) K/uL [place] # (Auto) 1.43 H 1.45 H (0.11-0.59) K/uL Eos # (Auto) 0.05 0.00 (0.00-0.50) K/uL Baso # (Auto) 0.10 0.13 (0.00-0.20) K/uL Comprehensive Metabolic Panel 01/16/23 01/16/23 01/16/23 Range/Units 14:36 20:10 23:05 Sodium 130 L 130 L 132 L (136-145) mmol/L Potassium 3.4 L 2.8 L 3.3 L (3.5-5.1) mmol/L Chloride 96 L 102 102 (98-107) mmol/L Carbon Dioxide 15 L 17 L 16 L (21-32) mmol/L BUN 44 H 48 H 52 H (6-23) mg/dl Creatinine 2.50 H 2.32 H 2.69 H D (0.6-1.2) mg/dl Glucose 188 H 159 H 153 H (70-99(Fasting)) mg/dl Calcium 8.7 7.1 L 7.3 L (8.6-10.3) mg/dl Direct Bilirubin 0.1 (0-0.2) mg/dl AST 20 (13-39) U/L ALT 16 (7-52) U/L Alkaline Phosphatase 65 (34-104) U/L Total Protein 4.8 L (6.0-8.3) gm/dl Albumin 2.9 L 2.1 L (3.4-5.0) gm/dl 01/17/23 01/17/23 Range/Units 04:10 08:59 Sodium 131 L 136 (136-145) mmol/L Potassium 4.2 D 4.0 (3.5-5.1) mmol/L Chloride 102 100 (98-107) mmol/L Carbon Dioxide 12 L 13 L (21-32) mmol/L BUN 53 H 53 H (6-23) mg/dl Creatinine 2.80 H 2.75 H (0.6-1.2) mg/dl Glucose 111 H 180 H (70-99(Fasting)) mg/dl Calcium 7.4 L 7.5 L (8.6-10.3) mg/dl Direct Bilirubin (0-0.2) mg/dl AST 26 (13-39) U/L ALT 22 (7-52) U/L Alkaline Phosphatase 48 (34-104) U/L Total Protein 3.0 L D (6.0-8.3) gm/dl Albumin 1.9 L (3.4-5.0) gm/dl Intake and Output 01/16/23 01/17/23 01/17/23 22:59 06:59 14:59 Intake Total 3151 / 5786.430 2635.430 / 5786.430 215.079 / 215.079 Output Total 40 / 40 0 / 0 Balance 3151 / 5746.430 2595.430 / 5746.430 215.079 / 215.079 Intake: IV 3151 / 5786.430 2635.430 / 5786.430 215.079 / 215.079 Amiodarone / D5w 150 mg In 100 100 / 100 ml @ 600 mls/hr IV NOW STA Rx#: [id number] Calcium Gluconate 10% 1,000 mg 120 / 120 In Sodium Chlor 0.9% Mini-B 50 ml @ 240 mls/hr IV Q15M SUSAN Rx# :[id number] Esmolol / Nss 2,500 mg In 250 5.478 / 5.478 ml @ 0 MCG/KG/MIN IV .Q0M SUSAN Rx#:[id number] Norepinephrine/D5w 4 mg In 250 125.847 / 125.847 109.601 / 109.601 ml @ 0.56 MCG/KG/MIN 121.17 mls /hr IV .Q2H4M SUSAN Rx#:[id number] Phytonadione 10 mg In Dextrose 51 / 51 5% 50 ml @ 102 mls/hr IV ONE ONE Rx#:[id number] Plasma-Lyte A 1,000 ml @ 125 2089.583 / 2089.583 mls/hr IV .Q8H SUSAN Rx#:[id number] Potassium Chloride / Wtr 10 meq 200 / 200 In 100 ml @ 100 mls/hr IV Q1H SUSAN Rx#:[id number] Sodium Chloride 0.9% 1,000 ml @ 3000 / 3000 999 mls/hr IV .Q1H1M ONE Rx#: [id number] metroNIDAZOLE 500 mg In 100 ml 100 / 200 100 / 200 @ 100 mls/hr IV Q8H SUSAN Rx#: [id number] Output: Urine Amount (Catheter) 40 / 40 0 / 0 Marx/Indwelling 40 / 40 0 / 0 Other: Weight 57.7 kg Weight Measurement Method Built in [facility] Diagnostic Findings Telemetry: Presented in rapid atrial fibrillation, heart rate decreased with initiation of amiodarone and then converted to sinus rhythm at around 8:30 AM today. Has remained in sinus rhythm. PG Care Time/CCT Total # of Minutes Spent Total Time Spent with Patient: Total time spent is greater than 50% in coordination of care (as documented) at patient's floor/unit and/or counseling patient: Coding Level of Care Code 95460 INT INP/OBS CARE 2/55MIN Diagnoses Atrial fibrillation with RVR I48.91 Coagulopathy D68.9 Elevated troponin I level R79.89
[2023-01-17] MEDS: PANTOprazole 40 MG in SYRINGE 0 ML IV SCH (10:19)
[2023-01-17 10:20] LABS: Partial Thromboplastin Time 57.8 Seconds (21.0-31.0)
--- NOTE | 2023-01-17 10:49 | Nephrology Consultation ---
Date of Consultation January 17, 2023 Assessment & Plan (1) ZEV (acute kidney injury): (2) Clostridium difficile enterocolitis: (3) Septic shock: Plan Medical record reviewed, plan of care/prognosis discussed w/ Mr. Hurt this morning. He understands the gravity of his 's illness. He does not wish to pursue transfer to a tertiary care center or colectomy due to her age and frailty. Mr. Hurt expressed a desire to focus on keeping his comfortable and does not wish to escalate her care. 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 Recommend continuing Dificid, Flagyl, NaHCO3 gtt and Levophed pressor support and transition to comfort measures if condition deteriorates. DIRECTOR OF PROCUREMENTstaffing coordinator was updated regarding the family's decision. No further Nephrology recommendations at this time. Will sign off. Please call if further assistance is needed. History of Present Illness Reason for Consultation: Oliguric ZEV Attending Physician: Chase Ng MD History of Present Illness Mrs. Hurt is an 82 year old white female who is seen at the request of the [facility] ICU team for evaluation of oliguric ZEV. The patient is currently sedated, mechanically ventilated in the ICU. Information for the HPI is obtained from interview of her and review of the EMR. Mrs. Hurt has no prior h/o kidney disease. She has never undergone Nephrology evaluation in the past. Her baseline Cr has been 0.8. Mrs. Hurt's medical history is significant for atrial fibrillation, HTN, hyponatremia and osteopenina. She presented to the [facility] EMD 01/16/23 for evaluation of weakness. She has suffered from abdominal pain and poor oral intake for 2 weeks while on ACEi therapy. Upon admission she was found to have SBP 70's, WBC 34K, Cr 2.5, lactate 4.0, troponin 129.9. Abdominal CT without IV contrast revealed moderate to severe proctocolitis. Stool tested + for C. Difficile. Patient received 3 L saline in the EMD and admitted to the ICU for pressor support and intubation/mechanical ventilation to secure her airway. Overnight Mrs. Hurt has remained oligoanuric w/ only 40 cc UO. She is net 6.2 L volume positive. Her SaO2 is 50% on FiO2 100%. She remains on a Levophed gtt. Mr. Hurt has met w/ Gastroenterology to discuss management options. He does not wish to pursue transfer to a tertiary care center or colectomy. We have discussed his 's kidney failure this morning. Mr. Hurt voiced understanding and indicated that he wishes to focus on comfort measures for his and does not wish to escalate care if her condition worsens. Allergies Allergy/AdvReac Type Severity Reaction Status Date / Time Penicillins Allergy Unknown UNKNOWN Verified 12/25/22 13:17 Home Medications Medication Instructions Recorded Confirmed Type vitamins A,C,H-kwqm-qrlsot 4,296 See Rx Instructions .Route .COMPLEX 10/18/21 12/25/22 History mcg-226 mg-90 mg capsule (PreserVision AREDS) calcium carbonate 600 mg calcium See Rx Instructions .Route .COMPLEX 12/09/22 12/25/22 History (1,500 mg) tablet (Calcium) cholecalciferol (vitamin D3) 25 See Rx Instructions .Route .COMPLEX 12/09/22 12/25/22 History mcg (1,000 unit) tablet (Vitamin D3) prednisone 5 mg tablet 5 mg .Route .COMPLEX 01/01/23 01/16/23 History amlodipine 5 mg tablet See Rx Instructions .Route .COMPLEX 01/16/23 History losartan 50 mg-hydrochlorothiazide See Rx Instructions .Route .COMPLEX 01/16/23 History 12.5 mg tablet mesalamine 1.2 gram tablet,delayed 4.8 g PO DAILY 01/16/23 01/16/23 History release (Lialda) potassium chloride 10 mEq See Rx Instructions .Route .COMPLEX 01/16/23 History capsule,extended release triamcinolone acetonide 0.1 % 1 applic topical BID PRN Other 01/16/23 01/16/23 History topical cream Patient History Medical History Afib Arthritis Colitis Diarrhea GERD (gastroesophageal reflux disease) Hypertension Hypokalemia Hyponatremia Osteopenia Surgical History H/O cataract extraction (2016) History of breast lump/mass excision (1987) Fibroid, 1987 S/P appendectomy S/P cholecystectomy (2009) S/P tonsillectomy Family History Mother Cardiac disorder Stroke Hypertension Myocardial infarction 80's Sister Cardiac disorder Stroke Hypertension Grandfather (Maternal) Diabetes Father No known health problems Denies family history of Ovarian cancer Prostate cancer Breast cancer Colorectal cancer Social History Smoking Status: Never smoker Second Hand Exposure: No; Do You Dip or Chew Tobacco: No; Hx Alcohol Use: No Hx Substance Use: No Preferred Language: Tajik Communication Ability: Effective Visual Impairment: No Limitations Hearing Ability: Normal Adding Machine Servicer Required: No Beliefs That Will Affect Care: None marital status: Current Living Situation: Spouse 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 Feels Safe at Home: Yes Diet: regular Diet Comment: regular caffeine: Yes during the past year weight has: remained stable Dental Care, Regularly: Yes Physical Activity Frequency: Daily Physical Activity Frequency Comment: walking/ housework Seatbelt Use: always Sunscreen Use: Yes Assistive Devices: Cane and Wheelchair Review of Systems Review of Systems: Unobtainable due to endotracheal tube Physical Exam Eyes: PERRL, conjunctivae normal, anicteric sclerae ENMT: orotracheal intubation Neck: trachea midline, no thyromegaly Respiratory: coarse breath sounds bilaterally Cardiovascular: Rate/Rhythm: regular rate and regular rhythm Gastrointestinal (Abdomen): Inspection/Auscultation: + abdomen distended and + hypoactive bowel sounds Skin: + turgor decreased and + mottling fingers and toes appear cyanotic Neurologic: sedated Results & Data Vital Signs (Past 12 Hours) Vital Signs Temp Pulse Resp BP Pulse Ox O2 Del Method FiO2 01/17/23 09:10 92 H 30 H 100 01/17/23 09:01 90 30 H 100 01/17/23 09:00 88 30 H 01/17/23 08:50 87 26 H 100 01/17/23 08:40 89 30 H 94 01/17/23 08:30 88 30 H 92 01/17/23 08:30 136/94 01/17/23 08:20 86 26 H 100 01/17/23 08:15 87 30 H 100 01/17/23 08:15 120/91 01/17/23 08:10 85 30 H 97 01/17/23 08:00 82 30 H 01/17/23 08:00 109/80 01/17/23 07:50 94 H 26 H 100 01/17/23 07:40 120 H 30 H 100 01/17/23 07:36 90/72 L 01/17/23 07:36 127 H 30 H 01/17/23 07:30 162 H 30 H 100 01/17/23 07:20 160 H 26 H 98 01/17/23 07:10 153 H 30 H 98 01/17/23 07:00 158 H 30 H 90 01/17/23 08:00 Mechanical Vent 01/17/23 08:00 135 H 01/17/23 09:22 35.4 C L 01/17/23 08:10 50 01/17/23 06:53 161 H 30 H 95 70 01/17/23 05:58 127 H 93/65 L 01/17/23 04:00 127 H 29 H 95 01/17/23 03:50 127 H 31 H 100 01/17/23 03:46 99 01/17/23 03:40 133 H 46 H 100 01/17/23 03:40 93/65 L 01/17/23 03:30 128 H 35 H 95 01/17/23 03:20 130 H 36 H 99 01/17/23 03:16 129 H 20 90 01/17/23 03:16 98/55 L 01/17/23 03:10 124 H 33 H 97 01/17/23 03:01 83/66 L 01/17/23 03:01 130 H 23 95 01/17/23 03:00 128 H 32 H 96 01/17/23 02:50 132 H 23 100 01/17/23 02:40 127 H 28 H 100 01/17/23 02:35 139 H 24 91 01/17/23 02:30 124 H 24 95 01/17/23 02:20 132 H 31 H 98 01/17/23 02:10 123 H 22 98 01/17/23 02:00 127 H 30 H 100 01/17/23 02:00 105/72 01/17/23 01:50 122 H 9 L 95 01/17/23 01:40 124 H 27 H 98 01/17/23 01:39 122 H 31 H 99 01/17/23 01:39 99/67 L 01/17/23 01:38 130 H 31 H 98 01/17/23 01:30 119 H 19 79 L 01/17/23 01:29 96/68 L 01/17/23 01:29 128 H 25 H 01/17/23 01:20 124 H 17 87 L 01/17/23 01:17 91/74 L 01/17/23 01:17 113 H 30 H 01/17/23 01:10 131 H 25 H 99 01/17/23 01:02 75/64 L 01/17/23 01:02 130 H 28 H 99 01/17/23 01:00 130 H 29 H 90 01/17/23 00:50 115 H 26 H 94 01/17/23 00:40 169 H 31 H 96 01/17/23 00:33 92/68 L 01/17/23 00:33 152 H 29 H 99 01/17/23 00:30 154 H 31 H 100 01/17/23 00:20 152 H 25 H 99 01/17/23 02:00 36.2 C L 01/17/23 00:45 135 H 92/68 L 01/17/23 00:36 151 H 137/100 01/17/23 00:10 151 H 26 H 99 01/17/23 00:01 149 H 26 H 99 01/17/23 00:01 137/100 01/17/23 00:00 141 H 25 H 99 01/16/23 23:56 136/95 01/16/23 23:56 142 H 26 H 98 01/16/23 23:50 140 H 28 H 98 01/16/23 23:40 148 H 18 99 01/16/23 23:30 149 H 28 H 99 01/16/23 23:20 156 H 40 H 99 01/16/23 23:10 150 H 27 H 100 01/16/23 23:01 96/75 L 01/16/23 23:01 162 H 31 H 99 01/16/23 23:00 160 H 25 H 99 01/17/23 00:00 144 H Laboratory Results Laboratory Tests 01/01/23 01/16/23 01/17/23 10:06 14:36 04:10 WBC 35.36 H* Hgb 16.1 H Hct 46.7 Plt Count 155 Sodium Potassium Chloride Carbon Dioxide BUN Creatinine 0.74 2.50 H Lactate Troponin I High Sens Albumin 01/17/23 01/17/23 01/17/23 04:10 07:15 08:59 WBC Hgb Hct Plt Count Sodium 136 Potassium 4.0 Chloride 100 Carbon Dioxide 13 L BUN 53 H Creatinine 2.80 H 2.75 H Lactate Troponin I High Sens 449.8 H* D Albumin 1.9 L 01/17/23 09:06 WBC Hgb Hct Plt Count Sodium Potassium Chloride Carbon Dioxide BUN Creatinine Lactate 12.0 H* Troponin I High Sens Albumin PG Care Time/CCT Total # of Minutes Spent Total Time Spent with Patient: Total time spent is greater than 50% in coordination of care (as documented) at patient's floor/unit and/or counseling patient: Coding Level of Care Code 44097 IN/OBS CONSULT LVL 5,80M Diagnoses ZEV (acute kidney injury) N17.9 Clostridium difficile enterocolitis A04.72 Septic shock A41.9; R65.21
[2023-01-17 11:21] LABS: Estimated Average Glucose 114 mg/dl; Hemoglobin A1C 5.6 % (4.5-5.6)
[2023-01-17 11:58] LABS: iSTAT Arterial Blood Gas HCO3 10 meg/L (19-24); iSTAT Arterial Blood Gas pCO2 24 mmHg (35-46); iSTAT Arterial Blood Gas pH 7.21 (7.35-7.45); iSTAT Arterial Blood Gas pO2 141 mmHg (80-95); iSTAT Carbon Dioxide 10 mmol/L (24-31); iSTAT Hematocrit 41 % (37-47); iSTAT Hemoglobin 13.9 g/dl (12.0-16.0); iSTAT Potassium 3.7 mmol/L (3.3-5.0); iSTAT Sodium 127 mmol/L (135-144)
[2023-01-17] MEDS ORDERED: INSULIN ASPART PER UNIT CHARGE SC SCH (12:00)
--- NOTE | 2023-01-17 12:14 | Communication Note ---
Date of Service: January 17, 2023 Clinical update 12:00: Patient's acidosis increasing, hypotensive despite supratherapeutic doses of vasoactive medications. Discussed with patient rian mark current prognosis at this time we will not escalate care, therefore we will not add additional vasoactive's. I do believe adding additional vasoactive's at this moment will be counterproductive and worsen end-organ ischemia. Family desiring to continue current level of care understanding that there is a extremely poor prognosis. Reviewed nephrology notes and cardiology notes and gastroenterology notes. I have personally spent 25 minutes of critical care time in the direct management of this patient. This is a life/limb threatening event. This includes time spent evaluating patient, direct bedside care, chart review, placing orders, interpretation of diagnostic studies, discussion with consultants, patient, and/or family members regarding treatment decisions, as well as other required patient management activities. This time is exclusive of all separately billable procedures, and teaching time and separate from and in addition to any other critical care service time. Coding Level of Care Code 62388 CRITICAL CARE EA ADD 30M
--- NOTE | 2023-01-17 12:37 | Hospitalist Progress Note ---
Date of Service January 17, 2023 Assessment & Plan (1) Afib: Plan: She has converted to normal sinus rhythm with intravenous amiodarone. Telemetry. (2) Colitis: Plan: Known collagenous colitis by history with current C. difficile colitis. Treatment underway (3) Coagulopathy: Plan: Elevated PT and PTT noted. She is not receiving any subcutaneous heparin or Lovenox at this time (4) Closed L1 vertebral fracture: Plan: Incidental finding on imaging. No intervention at this time (5) Septic shock: Plan: She is on 2 separate pressors at this time, Levophed and vasopressin. Treat underlying infectious process. Wean off as tolerated (6) GERD (gastroesophageal reflux disease): Plan: PPI therapy (7) Hypertension: Plan: The currently hypotensive. Antihypertensive medications are on hold (8) Acute respiratory failure with hypoxia: Plan: Currently requiring ventilator support Plan To be determined. DNR has been established. Prognosis is grim. Admission and Anticipated Discharge Date Admission Date: January 16, 2023 Subjective Intubated and sedated. is at the bedside Review of Systems Review of Systems: The patient is unable to answer any questions regarding review of systems Physical Exam Physical Exam: General-intubated and sedated HEENT-head atraumatic and normocephalic, endotracheal tube in place Neck-no lymphadenopathy or thyromegaly, trachea midline Chest-diminished breath sounds bilaterally with scattered rhonchi Cardiac-regular rate and rhythm, normal S1 and S2. She converted from atrial fibrillation with rapid ventricular rate with intravenous amiodarone Abdomen-hypoactive bowel sounds, no hepatosplenomegaly Extremities-mild nonpitting edema bilateral lower extremities Neuro-intubated and sedated. Cannot assess Psych-cannot assess Results & Data Results & Data Vital Signs (Past 12 Hours) Vital Signs Temp Pulse Resp BP Pulse Ox O2 Del Method FiO2 01/17/23 11:58 50 01/17/23 11:00 86 30 H 100 40 01/17/23 08:00 Mechanical Vent 01/17/23 08:00 70 01/17/23 09:10 92 H 30 H 100 01/17/23 09:01 90 30 H 100 01/17/23 09:00 88 30 H 01/17/23 08:50 87 26 H 100 01/17/23 08:40 89 30 H 94 01/17/23 08:30 88 30 H 92 01/17/23 08:30 136/94 01/17/23 08:20 86 26 H 100 01/17/23 08:15 87 30 H 100 01/17/23 08:15 120/91 01/17/23 08:10 85 30 H 97 01/17/23 08:00 82 30 H 01/17/23 08:00 109/80 01/17/23 07:50 94 H 26 H 100 01/17/23 07:40 120 H 30 H 100 01/17/23 07:36 90/72 L 01/17/23 07:36 127 H 30 H 01/17/23 07:30 162 H 30 H 100 01/17/23 07:20 160 H 26 H 98 01/17/23 07:10 153 H 30 H 98 01/17/23 07:00 158 H 30 H 90 01/17/23 08:00 Mechanical Vent 01/17/23 08:00 135 H 01/17/23 09:22 35.4 C L 01/17/23 08:10 50 01/17/23 06:53 161 H 30 H 95 70 01/17/23 05:58 127 H 93/65 L 01/17/23 04:00 127 H 29 H 95 01/17/23 03:50 127 H 31 H 100 01/17/23 03:46 99 01/17/23 03:40 133 H 46 H 100 01/17/23 03:40 93/65 L 01/17/23 03:30 128 H 35 H 95 01/17/23 03:20 130 H 36 H 99 01/17/23 03:16 129 H 20 90 01/17/23 03:16 98/55 L 01/17/23 03:10 124 H 33 H 97 01/17/23 03:01 83/66 L 01/17/23 03:01 130 H 23 95 01/17/23 03:00 128 H 32 H 96 01/17/23 02:50 132 H 23 100 01/17/23 02:40 127 H 28 H 100 01/17/23 02:35 139 H 24 91 01/17/23 02:30 124 H 24 95 01/17/23 02:20 132 H 31 H 98 01/17/23 02:10 123 H 22 98 01/17/23 02:00 127 H 30 H 100 01/17/23 02:00 105/72 01/17/23 01:50 122 H 9 L 95 01/17/23 01:40 124 H 27 H 98 01/17/23 01:39 122 H 31 H 99 01/17/23 01:39 99/67 L 01/17/23 01:38 130 H 31 H 98 01/17/23 01:30 119 H 19 79 L 01/17/23 01:29 96/68 L 01/17/23 01:29 128 H 25 H 01/17/23 01:20 124 H 17 87 L 01/17/23 01:17 91/74 L 01/17/23 01:17 113 H 30 H 01/17/23 01:10 131 H 25 H 99 01/17/23 01:02 75/64 L 01/17/23 01:02 130 H 28 H 99 01/17/23 01:00 130 H 29 H 90 01/17/23 00:50 115 H 26 H 94 01/17/23 00:40 169 H 31 H 96 01/17/23 00:33 92/68 L 01/17/23 00:33 152 H 29 H 99 01/17/23 02:00 36.2 C L 01/17/23 00:45 135 H 92/68 L 01/17/23 00:36 151 H 137/100 Laboratory Results 01/17/23 04:10 01/17/23 08:59 PG Care Time/CCT Total # of Minutes Spent Total Time Spent with Patient: Total time spent is greater than 50% in coordination of care (as documented) at patient's floor/unit and/or counseling patient: Coding Level of Care Code 55053 SUB INP/OBS CARE 3/50MIN Diagnoses Afib I48.91 Colitis K52.9 Coagulopathy D68.9 Closed L1 vertebral fracture S32.019A Septic shock A41.9; R65.21 GERD (gastroesophageal reflux disease) K21.9 Hypertension I10 Acute respiratory failure with hypoxia J96.01
--- NOTE | 2023-01-17 12:37 | Surgery Consultation ---
Date of Consultation January 17, 2023 Assessment & Plan (1) Clostridium difficile enterocolitis: comfort care not surgical candidate by patient's wishes Present on Admission?: Yes History of Present Illness Attending Physician: Chase Ng MD History of Present Illness 82YO with severe sepsis and c diff colitis. On max pressors and not a surgical candidate at this point. Lactate 12. Allergies Allergy/AdvReac Type Severity Reaction Status Date / Time Penicillins Allergy Unknown UNKNOWN Verified 12/25/22 13:17 Home Medications Medication Instructions Recorded Confirmed Type vitamins A,C,K-wtqy-zahcjf 4,296 See Rx Instructions .Route .COMPLEX 10/18/21 12/25/22 History mcg-226 mg-90 mg capsule (PreserVision AREDS) calcium carbonate 600 mg calcium See Rx Instructions .Route .COMPLEX 12/09/22 12/25/22 History (1,500 mg) tablet (Calcium) cholecalciferol (vitamin D3) 25 See Rx Instructions .Route .COMPLEX 12/09/22 12/25/22 History mcg (1,000 unit) tablet (Vitamin D3) prednisone 5 mg tablet 5 mg .Route .COMPLEX 01/01/23 01/16/23 History amlodipine 5 mg tablet See Rx Instructions .Route .COMPLEX 01/16/23 History losartan 50 mg-hydrochlorothiazide See Rx Instructions .Route .COMPLEX 01/16/23 History 12.5 mg tablet mesalamine 1.2 gram tablet,delayed 4.8 g PO DAILY 01/16/23 01/16/23 History release (Lialda) potassium chloride 10 mEq See Rx Instructions .Route .COMPLEX 01/16/23 History capsule,extended release triamcinolone acetonide 0.1 % 1 applic topical BID PRN Other 01/16/23 01/16/23 History topical cream Patient History Medical History Afib Arthritis Colitis Diarrhea GERD (gastroesophageal reflux disease) Hypertension Hypokalemia Hyponatremia Osteopenia Surgical History H/O cataract extraction (2016) History of breast lump/mass excision (1987) Fibroid, 1987 S/P appendectomy S/P cholecystectomy (2009) S/P tonsillectomy Family History Mother Cardiac disorder Stroke Hypertension Myocardial infarction 80's Sister Cardiac disorder Stroke Hypertension Grandfather (Maternal) Diabetes Father No known health problems Denies family history of Ovarian cancer Prostate cancer Breast cancer Colorectal cancer Social History Smoking Status: Never smoker Second Hand Exposure: No; Do You Dip or Chew Tobacco: No; Hx Alcohol Use: No Hx Substance Use: No Preferred Language: Vietnamese Communication Ability: Effective Visual Impairment: No Limitations Hearing Ability: Normal Technology Development Intern Required: No Beliefs That Will Affect Care: None marital status: Current Living Situation: Spouse 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 Feels Safe at Home: Yes Diet: regular Diet Comment: regular caffeine: Yes during the past year weight has: remained stable Dental Care, Regularly: Yes Physical Activity Frequency: Daily Physical Activity Frequency Comment: walking/ housework Seatbelt Use: always Sunscreen Use: Yes Assistive Devices: Cane and Wheelchair Physical Exam Gastrointestinal (Abdomen): Inspection/Auscultation: + abdomen distended Percussion/Palpation: + abdomen tender and + abdomen rigid Musculoskeletal: Head/Neck/Chest: normocephalic and head atraumatic Results & Data Vital Signs (Past 12 Hours) Vital Signs Temp Pulse Resp BP Pulse Ox O2 Del Method FiO2 01/17/23 11:58 50 01/17/23 11:00 86 30 H 100 40 01/17/23 08:00 Mechanical Vent 01/17/23 08:00 70 01/17/23 09:10 92 H 30 H 100 01/17/23 09:01 90 30 H 100 01/17/23 09:00 88 30 H 01/17/23 08:50 87 26 H 100 01/17/23 08:40 89 30 H 94 01/17/23 08:30 88 30 H 92 01/17/23 08:30 136/94 01/17/23 08:20 86 26 H 100 01/17/23 08:15 87 30 H 100 01/17/23 08:15 120/91 01/17/23 08:10 85 30 H 97 01/17/23 08:00 82 30 H 01/17/23 08:00 109/80 01/17/23 07:50 94 H 26 H 100 01/17/23 07:40 120 H 30 H 100 01/17/23 07:36 90/72 L 01/17/23 07:36 127 H 30 H 01/17/23 07:30 162 H 30 H 100 01/17/23 07:20 160 H 26 H 98 01/17/23 07:10 153 H 30 H 98 01/17/23 07:00 158 H 30 H 90 01/17/23 08:00 Mechanical Vent 01/17/23 08:00 135 H 01/17/23 09:22 35.4 C L 01/17/23 08:10 50 01/17/23 06:53 161 H 30 H 95 70 01/17/23 05:58 127 H 93/65 L 01/17/23 04:00 127 H 29 H 95 01/17/23 03:50 127 H 31 H 100 01/17/23 03:46 99 01/17/23 03:40 133 H 46 H 100 01/17/23 03:40 93/65 L 01/17/23 03:30 128 H 35 H 95 01/17/23 03:20 130 H 36 H 99 01/17/23 03:16 129 H 20 90 01/17/23 03:16 98/55 L 01/17/23 03:10 124 H 33 H 97 01/17/23 03:01 83/66 L 01/17/23 03:01 130 H 23 95 01/17/23 03:00 128 H 32 H 96 01/17/23 02:50 132 H 23 100 01/17/23 02:40 127 H 28 H 100 01/17/23 02:35 139 H 24 91 01/17/23 02:30 124 H 24 95 01/17/23 02:20 132 H 31 H 98 01/17/23 02:10 123 H 22 98 01/17/23 02:00 127 H 30 H 100 01/17/23 02:00 105/72 01/17/23 01:50 122 H 9 L 95 01/17/23 01:40 124 H 27 H 98 01/17/23 01:39 122 H 31 H 99 01/17/23 01:39 99/67 L 01/17/23 01:38 130 H 31 H 98 01/17/23 01:30 119 H 19 79 L 01/17/23 01:29 96/68 L 01/17/23 01:29 128 H 25 H 01/17/23 01:20 124 H 17 87 L 01/17/23 01:17 91/74 L 01/17/23 01:17 113 H 30 H 01/17/23 01:10 131 H 25 H 99 01/17/23 01:02 75/64 L 01/17/23 01:02 130 H 28 H 99 01/17/23 01:00 130 H 29 H 90 01/17/23 00:50 115 H 26 H 94 01/17/23 00:40 169 H 31 H 96 01/17/23 02:00 36.2 C L 01/17/23 00:45 135 H 92/68 L 01/17/23 00:36 151 H 137/100
[2023-01-17] MEDS ORDERED: AMIODARONE / D5W 360 MG/200 ML BAG IV SCH (13:00)
[2023-01-17 15:31] LABS: BUN Creatinine Ratio 15.9 (10-20); Calcium 6.4 mg/dl (8.6-10.3); Creatinine Clr Calc Pharmacy 11.8 ml/min; Est GFR (African American) 15.5 ml/min; Est GFR (Non-African American) 13.3 ml/min
[2023-01-17] MEDS ORDERED: CALCIUM CHLORIDE 10% 1,000 MG in DEXTROSE 5% 50 ML IV STA (15:41)
[2023-01-17] MEDS: ALBUMIN 25% 25 GM/100 ML VIAL IV SCH ×2 (15:58→17:57)
[2023-01-17 16:16] LABS: Partial Thromboplastin Ratio > 4.9
[2023-01-17 16:21] LABS: Fibrinogen 60 mg/dl (184-400); INR 5.7 (0.9-1.1); Partial Thromboplastin Time > 139.0 Seconds (21.0-31.0)
--- NOTE | 2023-01-17 17:26 | Communication Note ---
Date of Service: January 17, 2023 Patient with severe septic shock secondary to c. diff colitis, continuation of vasopressors has been maxed out on Levophed multiple times today and vasopressin as well. Laboratory studies resulted this early evening with worsening of renal function- and remains with minimal to no urine output, lactic acid continues to increase now to 12, her coagulation cascade reflecting worsening coagulation induced DIC and with large clot to her right leg venous system. INR >130, INR up to 5.7, Fibrinogen decreased down to 60, and her HsCTNI is markedly increased now to 5K . Discussed these findings with her and son at the bedside. They understand that this is likely not going to get any improvement as now mostly all her organs are failing and increase risk for internal and intracranial bleeding. Son and asked about just making her comfortable and how that would go. They understand that she is currently being supported fully by ventilator and hemodynamics with multiple supporting agents. We discussed option of continuation of support with no escalation and see how progress through the night until morning and currently feel that she would just want to be comfortable at this time and don't want to prolong her care until cardiac arrest or respiratory arrest. We discussed that family comes in and spends as much time as they want with Thier and mom and when ready we can palliatively extubate her and turn off vasopressor support to allow her to pass naturally and that pain and anxiety mediations would be able to be provided so she is not in pain from her colitis as well as to prevent air hunger. Can provide anxiety medications as needed as well as manage secretions with glycopyrrolate or atropine drops. They elected to call in their family and spend time with together as a family and will let the RN or myself know when they feel they are ready to proceed to comfort care measures with terminal palliative extubation and withdraw of vasopressor support. 1756- Patient at bedside are are ready to proceed with end of life comfort measures and palliative extubation. Kole JEAN ([facility]-)
[2023-01-17] MEDS ORDERED: MoRPHine SULFATE 2 MG/ML CARP IV PRN (17:57)
[2023-01-17] MEDS ORDERED: ONDANSETRON INJ 2 MG/ML 2 ML VIAL IV PRN (17:57)
[2023-01-17] MEDS ORDERED: LORazepam 2 MG/1 ML VIAL IV PRN (17:57)
[2023-01-17] MEDS ORDERED: ATROPINE SULFATE 1% OP SOLN 5 ML BTL SL PRN (17:57)
[2023-01-17] MEDS ORDERED: LORazepam 0.5 MG TAB PO PRN (17:57)
[2023-01-17] MEDS ORDERED: ONDANSETRON 4 MG OD TAB SL PRN (17:57)
[2023-01-17] MEDS ORDERED: ACETAMINOPHEN 325 MG TAB PO PRN (17:57)
[2023-01-17] MEDS ORDERED: MoRPHine BOLUS from BAG IV PRN (17:57)
[2023-01-17] MEDS ORDERED: MoRPHine SULF/NSS 100 MG/100 ML BAG IV SCH (18:00)
--- NOTE | 2023-01-17 19:38 | Death Pronouncement Note ---
Date of Service January 17, 2023 Pronouncement Note Admission Date Admission Date: January 16, 2023 Contributing Factors (1) Septic shock: (2) Clostridium difficile enterocolitis: (3) Acute renal failure: (4) Colitis: (5) Afib: (6) Coagulopathy: (7) Closed L1 vertebral fracture: (8) GERD (gastroesophageal reflux disease): (9) Hypertension: (10) Acute respiratory failure with hypoxia: Hospital Course Hospital Course: 82 YOF with medical history of: HTN, GERD, osteopenia with L1 endplate fracture ? acuity, Colitis which appears by GI to have component of of Ulcerative and Collagenous Colitis. She arrived to the [facility] Tachycardic to the 160s and hypotensive 80/60s. She is also found to be in Afib/flutter, which appears to be new to her. She was given 3L of crystalloid, blood cultures obtained and UA, received dose of Cefepime and started on steroids. She was treated for septic shock from GI source and found to have colitis secondary to clostridium difficile. Patient continued to rapidly worsen requiring rapid increase in vasopressor therapy, increasing lactic acid, worsening renal function, development of DIC and multiorgan failure and large DVT to right leg. She required intubation and mechanical ventilation to support her hemodynamics and respiratory status. Decision was made by family to not pursue transfer to tertiary care center for surgical evaluation for colectomy. As the day progressed she continued to have increasing vasopressor requirements and remained hypotensive, worsening organ function and worsening of coagulopathy decision was made by family and provider to not escalate care further. 1700 labs returned showing worsening renal function, coagulopathy, notable increase in troponin levels, and lactate level. Discussed with and son at bedside and decision was made to transition patient to comfort care and palliatively extubate her as well as remove all vasoactive support. Patient at 1919. Summary Additional details: Date: [id number] Time: 1919 I was contacted by nursing staff regarding the patient being asystole on the monitor following transition to comfort/palliative care. In short, Patient from septic shock secondary to clostridium difficile colitis in the setting of underlying collagenous and ulcerative colitis. Patient progressed to severe septic shock with multiorgan failure and transitioned to comfort care with palliative extubation and withdraw of vasopressor and hemodynamic agents. Assessment: I presented to the patients room for evaluation. Upon assessment, the patient was found to be in a terminal state. Pupils were fixed and dilated without response. No palpable pulses appreciated. No spontaneous breaths noted. Heart sounds were absent. No response to painful stimuli. Asystole confirmed on monitor in 2 leads. Time of : 1919 as pronounced by myself. Family - , 2 Sons and 2 grandchildren were present at bedside. Appropriate response to grief appreciated. Condolences provided. Questions were addressed and emotional support was provided. Patients primary service was contacted and made aware of patient demise. Pronouncement section of the Certificate was filled out and signed by myself. Cause of : Primary - Septic Shock Secondary - C. difficile colitis Contributing Causes of - ARF, DIC Please feel free to contact me with any questions regarding the above-mentioned course. Additional Data Attending physician: Chase Ng MD
--- NOTE | 2023-01-17 20:21 | XRay Report ---
XR KUB/Abdomen 1 view CLINICAL HISTORY: OG tube placement. TECHNIQUE: 1 view of the abdomen was obtained. Comparison: Comparison is made to CT abdomen pelvis 01/16/2023 FINDINGS: Enteric tube terminates in the stomach. Degenerative changes are seen in the visualized skeleton. The bowel gas pattern is nonobstructive. A moderate amount of stool is noted within the large bowel. IMPRESSION: Satisfactory position of enteric tube. ACT 112: Negative or not required by law. Electronically signed by: Dwaine Campos M.D. 01/17/2023 8:19 PM
[2023-01-17] MEDS ORDERED: ROCURONIUM BROMIDE 10 MG/ML 5 ML VIAL IV ONE (20:49)
[2023-01-17] MEDS ORDERED: ETOMIDATE 2 MG/ML 20 ML VIAL IV ONE (20:49)
[2023-01-17] MEDS ORDERED: SODIUM CHLORIDE 0.9% 10ML FLUSH IV ONE (20:49)
--- NOTE | 2023-01-18 13:06 | XCELERA ---
[id number]
--- NOTE | 2023-01-20 06:13 | Electrocardiogram Report ---
Test Reason : Blood Pressure : / mmHG Vent. Rate : 090 BPM Atrial Rate : 090 BPM P-R Int : 118 ms QRS Dur : 086 ms QT Int : 384 ms P-R-T Axes : -02 -73 031 degrees QTc Int : 469 ms Sinus rhythm with Premature atrial complexes Left axis deviation Pulmonary disease pattern Nonspecific ST and T wave abnormality Abnormal ECG When compared with ECG of 16-JAN-2023 14:01, Sinus rhythm has replaced Atrial fibrillation Vent. rate has decreased BY [address] no longer depressed in Lateral leads Confirmed by Mckinley Cruz ([id number]) on 01/20/2023 6:13:04 AM Referred By: REFERRED SELF Confirmed By:Mckinley Cruz
== END 2023-01-17 20:50 | disposition expired | DRG 871 ==
LOC: ED 13:49 → 1E 18:09 → SUATTDRO 18:09 → 1E 20:51